=== PATIENT | male | born 1965 | race Caucasian/White ===

== ENCOUNTER 2017-12-22 16:04 | Observation (INO) ==
[2017-12-22] MEDS ORDERED: Aspirin 81 MG TAB.CHEW PO ONE (16:40)
[2017-12-22] MEDS: Nitroglycerin 0.4 MG TAB.SUBL SL ONE ×2 (17:11→17:50)
[2017-12-22 17:14] LABS: Basophils # 0.1 K/mcL (0.0-0.2); Basophils % 0.8 %; Eosinophils # 0.4 K/mcL (0.0-0.6); Eosinophils % 5.1 %; Hematocrit 41.1 % (37.5-50.1); Hemoglobin 13.4 g/dL (12.9-16.9); Immature Granulocytes % 0.4 % (0-4); Lymphocytes # 1.7 K/mcL (0.6-4.6); Lymphocytes % 24.5 %; Mean Corpuscular HGB Conc 32.6 g/dL (31.6-35.5); Mean Corpuscular Hemoglobin 27.8 pg (28.0-33.3); Mean Corpuscular Volume 85.3 fL (83.0-100.0); Mean Platelet Volume 10.4 fL (9.4-12.4); Monocytes # 0.4 K/mcL (0.0-1.3); Monocytes % 6.1 %; Neutrophils # 4.5 K/mcL (1.6-8.9); Platelet Count 156 K/mcL (140-400); Red Blood Count 4.82 M/mcL (4.19-5.50); Red Cell Distribution Width 14.1 % (11.5-14.5); Segmented Neutrophils % 63.1 %
[2017-12-22 17:20] LABS: INR 1.1; Prothrombin Time 12.7 Seconds (9.4-12.1)
[2017-12-22 17:22] LABS: Activated Partial Thrombo Time 34.4 Seconds (26.0-36.0)
[2017-12-22 17:39] LABS: BUN/Creatinine Ratio 11 (6-26); Blood Urea Nitrogen 12 mg/dL (6-20); Calcium 9.2 mg/dL (8.6-10.3); Carbon Dioxide 26 mEq/L (23-29); Chloride 106 mEq/L (98-107); Glucose 171 mg/dL (70-105); Osmolality,Calculated 290 (280-300); Potassium 3.6 mEq/L (3.5-5.1); Sodium 138 mEq/L (136-145); eGFR For Non-African Americans > 60 (> 60)
[2017-12-22 17:45] LABS: Troponin I 0.05 ng/mL (< 0.04)
[2017-12-22] MEDS ORDERED: *HR* Heparin 5,000 UNIT/ML VIAL IVP ONE (17:48)
[2017-12-22] MEDS ORDERED: *HR* Heparin 5,000 UNIT/ML VIAL IVP PRN (17:48)
--- NOTE | 2017-12-22 17:51 | Emergency Department Note ---
Disposition Clinical Impression: NSTEMI (non-ST elevated myocardial infarction) Disposition: Admitted As Inpatient Condition: Fair General Adult HPI - General Chief complaint: ED Chest Pain Stated complaint: Mulitple complaints/just was at [facility] Time Seen by Provider: 12/22/17 16:18 Source: patient, family Mode of arrival: ambulatory Limitations: no limitations Nursing Notes Reviewed: Yes Vital Signs Reviewed: Yes - History of Present Illness HPI Narrative: 52-year-old male with significant past medical history of hypertension, diabetes presenting to the emergency department with chief complaint of chest pain. Patient states that his chest pain was located substernally and radiated down his left arm and up his left neck. It started around 3:00 this morning. Patient is not taking any medications for this at home. He went to an outside emergency department where they diagnosed him with costochondritis after an EKG was completed but no lab work and discharge him home. Patient states he has continued to have chest pain. Patient does disclose diaphoresis, nausea and one episode of nonbloody nonbilious vomiting during the chest pain. At this time patient still is having chest pain. Patient states he has had an AL in the past but denies any stents or CABG. Denies being on any anticoagulation. Pain Scale: 4 - Related Data Home Medications Medication Instructions Recorded Confirmed Aspirin 325 mg PO DAILY 07/22/17 12/22/17 Buspirone HCl [Buspar] 30 mg PO DAILY 07/22/17 12/22/17 Diclofenac Sodium [Diclofenac 75 mg PO DAILY 07/22/17 12/22/17 Sodium ER] Docusate Sodium [Stool Softener] 100 mg PO DAILY 07/22/17 12/22/17 FLUoxetine HCl [Sarafem] 60 mg PO DAILY 07/22/17 12/22/17 Furosemide [Lasix] 20 mg PO DAILY 07/22/17 12/22/17 Insulin ASPART [NovoLOG] 0 unit SQ TIDWM 07/22/17 12/22/17 Loratadine [Allergy Relief] 10 mg PO DAILY 07/22/17 12/22/17 Losartan [Cozaar] 100 mg PO DAILY 07/22/17 12/22/17 Omeprazole [PriLOSEC] 40 mg PO DAILY 07/22/17 12/22/17 Potassium Chloride [Klor-Con 10 meq PO DAILY 07/22/17 12/22/17 Sprinkle] Simvastatin [Zocor] 20 mg PO HS 07/22/17 12/22/17 Zolpidem [Ambien] 10 mg PO HS 07/22/17 12/22/17 cloNIDine HCl [Clonidine HCl] 0.2 mg PO DAILY 07/22/17 12/22/17 lamoTRIgine [Lamotrigine] 100 mg PO DAILY 07/22/17 12/22/17 metFORMIN [Glucophage] 1,000 mg PO BIDWM 07/22/17 12/22/17 Fluticasone/Vilanterol [Breo 2 puff IH DAILY 12/22/17 12/22/17 Ellipta 200-25 Mcg INH] Insulin Glargine,Hum.rec.anlog 40 unit SQ HS 12/22/17 12/22/17 [Basaglar Kwikpen U-100] Pregabalin [Lyrica] 150 mg PO BID 12/22/17 12/22/17 Allergies Allergy/AdvReac Type Severity Reaction Status Date / Time promethazine [From Phenergan] Allergy Agitated Verified 02/27/15 21:09 plastic tape AdvReac Blister Uncoded 07/22/17 13:41 All systems ED: reviewed and negative except as stated. Constitutional: Denies: fever, chills, weakness Eyes: Reports: as per HPI ENT ED: Reports: as per HPI Cardiovascular: Reports: chest pain. Denies: palpitations, dyspnea on exertion Respiratory: Denies: cough, dyspnea, wheezes Gastrointestinal: Reports: nausea, vomiting. Denies: abdominal pain Genitourinary: Reports: as per HPI Musculoskeletal: Reports: as per HPI Integumentary: Denies: rash, abrasion Neurological: Denies: weakness, numbness, paresthesias Psychiatric: Reports: as per HPI Endocrine: Reports: as per HPI Hematological/Lymphatic: Reports: as per HPI Allergic/Immunologic: Reports: as per HPI Past Medical History - Past Medical History Attestation: Yes The following information was validated with the patient. Medical history: Reports: CHF, COPD, coronary artery disease, CVA, diabetes, hyperlipidemia, hypertension, myocardial infarction, peripheral artery disease, other Surgical history: Reports: appendectomy, cholecystectomy, herniorrhaphy (x2) Psychiatric history: Reports: anxiety - Social History Smoking Status: Current every day smoker Smokeless Tobacco Status: No Alcohol use: Reports: none Drug use: Reports: none Physical Exam - General Limitations: no limitations General appearance: alert, in no apparent distress - Head Head exam: atraumatic, normocephalic, normal inspection - Eye Eye exam: Present: normal appearance. Absent: scleral icterus, conjunctival injection - ENT ENT exam: normal exam, mucous membranes moist - Neck Neck exam: Present: normal inspection, full ROM. Absent: tenderness, meningismus - Chest Chest inspection: Present: normal inspection, symmetric chest wall rise. Absent : tenderness, rash - Respiratory Respiratory exam: Present: normal lung sounds bilaterally. Absent: respiratory distress, wheezes - Cardiovascular Cardiovascular exam: Present: regular rate, normal rhythm, normal heart sounds - Abdominal Exam Abdominal exam: Present: other (2 large hernias noted on exam. No discoloration or tenderness to these areas. Vertical wound noted in between the hernias. No dehiscence at this time.) - Extremities Exam Extremities exam: Present: normal inspection, full ROM - Neurological Exam Neurological exam: Present: alert, oriented X3 - Psychiatric Psychiatric exam: Present: normal affect, normal mood - Skin Skin exam: Present: warm, intact Course Course Narrative: 52-year-old male presenting for chest pain. In the room patient is hypertensive but otherwise hemodynamically stable. He is alert and oriented 3. Physical exam shows 2 large abdominal hernias but otherwise benign. At this time patient is still having chest pain. We will perform a chest pain workup including troponin, EKG along with a nitroglycerin trial and a full dose aspirin. Disposition most likely admission but pending results. Patient agrees with this plan. - Reevaluation(s) Reevaluation #1: After 3 nitros patient's pain has resolved. We will provide the patient with 1 inch Nitropaste at this time. Patient remains alert and oriented 3 in the room in hemodynamically stable. Laboratory analysis shows an elevated troponin at 0.05. EKG does not show any acute findings. At this time we will provide the patient with ACS dosing heparin for a NSTEMI. I spoke with the hospitalist on-call who agrees to accept the patient at this time. Patient agrees to hospitalization. I spoke with the machine brusher medical front desk coordinator Dr. Lee who agrees to assess the patient. Vital Signs Temperature 98.1 F 12/22/17 16:13 Pulse Rate 54 12/22/17 16:13 Respiratory Rate 19 12/22/17 16:13 Blood Pressure 171/92 12/22/17 16:13 O2 Sat by Pulse Oximetry 98 12/22/17 16:13 Temperature 98.1 F 12/22/17 16:47 Pulse Rate 50 12/22/17 19:11 Respiratory Rate 20 12/22/17 19:11 Blood Pressure 126/72 12/22/17 19:11 O2 Sat by Pulse Oximetry 99 12/22/17 19:11 Oxygen Delivery Oxygen Delivery Nasal Cannula Medical Decision Making - Lab Data Result diagrams: 12/22/17 16:50 12/22/17 16:50 Lab Results 12/22/17 12/22/17 12/22/17 Range/Units 16:40 16:50 16:50 WBC 7.1 (4.3-11.1) K/mcL RBC 4.82 (4.19-5.50) M/mcL Hgb 13.4 (12.9-16.9) g/dL Hct 41.1 (37.5-50.1) % MCV 85.3 (83.0-100.0) fL MCH 27.8 L (28.0-33.3) pg MCHC 32.6 (31.6-35.5) g/dL RDW 14.1 (11.5-14.5) % Plt Count 156 (140-400) K/mcL MPV 10.4 (9.4-12.4) fL Immature Gran % 0.4 (0-4) % Seg Neutrophils % 63.1 % Lymphocytes % 24.5 % Monocytes % 6.1 % Eosinophils % 5.1 % Basophils % 0.8 % Neutrophils # 4.5 (1.6-8.9) K/mcL Lymphocytes # 1.7 (0.6-4.6) K/mcL Monocytes # 0.4 (0.0-1.3) K/mcL Eosinophils # 0.4 (0.0-0.6) K/mcL Basophils # 0.1 (0.0-0.2) K/mcL PT 12.7 H (9.4-12.1) Seconds INR 1.1 APTT 34.4 (26.0-36.0) Seconds Heparin Anti-Xa, Unfract (0.30-0.70) IU/mL Sodium 138 (136-145) mEq/L Potassium 3.6 (3.5-5.1) mEq/L Chloride 106 (98-107) mEq/L Carbon Dioxide 26 (23-29) mEq/L BUN 12 (6-20) mg/dL Creatinine 1.05 (0.70-1.30) mg/dL Est GFR ( Amer) > 60 (> 60) Est GFR (Non-Af Amer) > 60 (> 60) BUN/Creatinine Ratio 11 (6-26) Glucose 171 H (70-105) mg/dL Calculated Osmolality 290 (280-300) Calcium 9.2 (8.6-10.3) mg/dL Troponin I 0.05 H* (< 0.04) ng/mL 12/22/17 Range/Units 18:28 WBC (4.3-11.1) K/mcL RBC (4.19-5.50) M/mcL Hgb (12.9-16.9) g/dL Hct (37.5-50.1) % MCV (83.0-100.0) fL MCH (28.0-33.3) pg MCHC (31.6-35.5) g/dL RDW (11.5-14.5) % Plt Count (140-400) K/mcL MPV (9.4-12.4) fL Immature Gran % (0-4) % Seg Neutrophils % % Lymphocytes % % Monocytes % % Eosinophils % % Basophils % % Neutrophils # (1.6-8.9) K/mcL Lymphocytes # (0.6-4.6) K/mcL Monocytes # (0.0-1.3) K/mcL Eosinophils # (0.0-0.6) K/mcL Basophils # (0.0-0.2) K/mcL PT (9.4-12.1) Seconds INR APTT (26.0-36.0) Seconds Heparin Anti-Xa, Unfract 0.04 L (0.30-0.70) IU/mL Sodium (136-145) mEq/L Potassium (3.5-5.1) mEq/L Chloride (98-107) mEq/L Carbon Dioxide (23-29) mEq/L BUN (6-20) mg/dL Creatinine (0.70-1.30) mg/dL Est GFR ( Amer) (> 60) Est GFR (Non-Af Amer) (> 60) BUN/Creatinine Ratio (6-26) Glucose (70-105) mg/dL Calculated Osmolality (280-300) Calcium (8.6-10.3) mg/dL Troponin I (< 0.04) ng/mL - EKG Data EKG #1 EKG attestation: Yes I reviewed and interpreted this EKG. EKG results narrative: Sinus rhythm. Left axis deviation. 55 beats for minute. NJ interval 191, curious 103, QTC 421. No sign of acute ST segment elevation or ischemia. Attestation Statement - Attestation Attestation: I examined this patient and my medical decision-making was reviewed with the Resident Physician, Dr. Hernandez. I agree with the documented findings, disposition and treatment plan as described except to the extent set forth below. Patient is 52-year-old white male with a history of diabetes and CAD who presents to emergency permit today with complaints of chest pain that woke him from sleep at 3:00 in the morning. At the time we will, patient had severe substernal pain with associated with diaphoresis nausea and one episode of vomiting. Patient denies any abdominal pain flank pain or urinary symptoms. Patient was seen at an outlying emergency department and states that he was diagnosed with costochondritis and discharged home. Patient came here due to ongoing chest pain. I agree with patient's physical exam findings as documented. Vital signs are stable. Patient received aspirin and nitroglycerin trial with resolution of symptoms. Nitropaste was ordered. Patient had full lab evaluation including troponin and chest x-ray. Chest x- ray was within normal limits and patient's troponin was elevated at 0.05. Patient will be admitted for an STEMI. Cardiology was consulate to see the patient and admitted to the hospitalist service patient is currently pain-free and was stable vital signs.
[2017-12-22] MEDS ORDERED: Nitroglycerin 1 INCH/GM PACKET TP ONE (17:59)
[2017-12-22] MEDS ORDERED: Naloxone 0.4 MG/ML INJ IVP PRN (20:09)
[2017-12-22] MEDS ORDERED: D5% in Water 1,000 ML IVC PRN (20:18)
[2017-12-22] MEDS ORDERED: *HR* Dextrose 50 % in Water (Syg) 50 ML SYRINGE IVP PRN (20:18)
[2017-12-22] MEDS ORDERED: Dextrose Gel 15 GM/37.5 ML TUBE PO PRN ×2 (20:18)
[2017-12-22] MEDS ORDERED: Albuterol 2.5 MG/3 ML NEBULIZER IH PRN (20:29)
[2017-12-22] MEDS: Heparin 25,000 UNIT/500 ML D5W 25,000 UNIT/500 ML BAG IVC SCH (22:10)
--- NOTE | 2017-12-22 22:10 | Internal Med History&Physical ---
<Leti Lee - Last Filed: 12/22/17 22:52> Date of Encounter: 12/22/17 Time of Encounter: 20:50 Internal Medicine - H&P: HPI Chief complaint: chest pain Admitted From: Home Plans for Post Hospital Care: Home History of present illness: Mr. Jimenez is a 52 year old male with extensive PMH that includes: CHF, CAD, SC (2015 and 1997), TIA, PAD, HTN, HLD, and COPD (2L continuous). Mr. Jimenez presents to the emergency department today for pressure-like chest pain. Chest pain began at 03:00 today, waking him from sleep. At that time he was drenched with sweat, nauseous, had a couple episodes of nonbloody emesis, and was significantly more short of breath then his baseline. His chest pain has been intermittent throughout the day with episodes of pain lasting 5-8 minutes. The chest pain is located in his left chest and radiates down his left arm, left side of neck, and left jaw. His pain is worse with exertion, emotional stress, and with bending forward; it is not pleuritic. His pain is relieved with rest, NTG tabs x3, and with laying down. He did not go to the emergency department immediately, he instead kept his doctor's appointment for knee injections this afternoon, but was told by his PCP to go to the emergency department because his blood pressure was 200's systolic /130's diastolic. The patient initially went to [facility] ED where they brittany blood and did a "4-lead EKG," ultimately saying the patient was fine and could be discharged. His insisted he come to [place] ED to be examined. Patient also reports bradycardic episode (HR in 30's-40's) with confusion, this episode has resolved. The patient reports he has had at least 2 MIs and 4-5 LHCs at various institutions. His last LHC was about a year ago and was told they found blockages not serious enough for stenting. His last stress test was 2 years ago and he was told it was normal. Last echocardiogram 1 year ago and reports he was never given the results. Furthermore, he reports that several years ago he was being considered for a pacemaker due to symptomatic bradycardia, but a [facility] doctor chose to hold off on this as the physician thought it was due to beta blockers--patient states his heart rate has increased since then, but has not gone "back to normal." He also has a significant family history of heart disease. He reports his mother and maternal grandmother had heart failure, maternal grandfather of massive heart attack, both of his brothers have had MIs, and his sister has general "heart problems" for which she's had multiple LHCs. On arrival to [place] ED he was afebrile, bradycardic at 54 bpm, hypertensive at 171/92, saturating 98%. Chest pain workup was initiated. First troponin 0.05 and EKG without signs of acute ischemia. CXR showed no acute cardiopulmonary processes. Electrolytes and CBC were unremarkable. He received 325 mg aspirin and his pain was relieved after 3 nitroglycerin tablets; 1 inch Nitropaste was also applied. Heparin gtt for NSTEMI placed, cardiology was contacted, and patient was admitted to the hospitalist team for further care and management. Past Med Surg Social Fam HX - Past Medical History Medical history: CHF, COPD, coronary artery disease, CVA, diabetes, hyperlipidemia, hypertension, myocardial infarction, peripheral artery disease, other Additional medical history: CVA-2017 Psychiatric history: anxiety - Past Surgical History Surgical History: appendectomy, cholecystectomy, herniorrhaphy (x2) Additional surgical history: Bowel resection/ perforated repair August 1996. August 1997 hernia repair. May 2007 mesh and hernia repair - Social History Smoking Status: Current every day smoker Smokeless Tobacco Status: No Alcohol use: none Drug use: none - Family History Mother Living Status: Hx Family Cardiac Disorders: Yes Father Living Status: Still Living Hx Family Cardiac Disorders: Yes Hx Family Endocrine Disorder: Yes Internal Medicine - H&P: Meds Aspirin 325 mg PO DAILY 07/22/17 [History] Buspirone HCl [Buspar] 30 mg PO DAILY 07/22/17 [History] Diclofenac Sodium [Diclofenac Sodium ER] 75 mg PO DAILY 07/22/17 [History] Docusate Sodium [Stool Softener] 100 mg PO DAILY 07/22/17 [History] FLUoxetine HCl [Sarafem] 60 mg PO DAILY 07/22/17 [History] Furosemide [Lasix] 20 mg PO DAILY 07/22/17 [History] Insulin ASPART [NovoLOG] 0 unit SQ TIDWM 07/22/17 [History] Loratadine [Allergy Relief] 10 mg PO DAILY 07/22/17 [History] Losartan [Cozaar] 100 mg PO DAILY 07/22/17 [History] Omeprazole [PriLOSEC] 40 mg PO DAILY 07/22/17 [History] Potassium Chloride [Klor-Con Sprinkle] 10 meq PO DAILY 07/22/17 [History] Simvastatin [Zocor] 20 mg PO HS 07/22/17 [History] Zolpidem [Ambien] 10 mg PO HS 07/22/17 [History] cloNIDine HCl [Clonidine HCl] 0.2 mg PO DAILY 07/22/17 [History] lamoTRIgine [Lamotrigine] 100 mg PO DAILY 07/22/17 [History] metFORMIN [Glucophage] 1,000 mg PO BIDWM 07/22/17 [History] Fluticasone/Vilanterol [Breo Ellipta 200-25 Mcg INH] 2 puff IH DAILY 12/22/17 [ History] Insulin Glargine,Hum.rec.anlog [Basaglar Kwikpen U-100] 40 unit SQ HS 12/22/17 [ History] Pregabalin [Lyrica] 150 mg PO BID 12/22/17 [History] 3 Allergy/AdvReac Type Severity Reaction Status Date / Time promethazine [From Phenergan] Allergy Agitated Verified 02/27/15 21:09 plastic tape AdvReac Blister Uncoded 07/22/17 13:41 All Systems PM: A 10-system review of systems was performed and is negative for pertinent findings except as documented above in the HPI. - Constitutional Constitutional: as per HPI - Cardiovascular Cardiovascular ROS IM: as per HPI, edema (BLE increased above baseline x 2 wk) - Respiratory Respiratory: as per HPI, wheezing, no pain on inspiration - Gastrointestinal Gastrointestinal: nausea, vomiting, no abdominal pain, no coffee ground emesis, no hematemesis - Integumentary Integumentary IM: other (poor-healing herniorraphy scars, seeing wound care) - Neurological Neurological ROS: as per HPI, confusion - Constitutional Vitals: Temp Pulse Resp BP Pulse Ox 98.1 F 50 20 126/72 99 12/22/17 16:47 12/22/17 19:11 12/22/17 19:11 12/22/17 19:11 12/22/17 19:11 Exam: General: vital signs noted, no acute distress, AAO x3 Head: normocephalic, atraumatic Eyes: EOMI, PERRL, sclera anicteric Neck: supple, trachea midline Cardio: Regular rhythm, bradycardic; no murmurs, gallops, rubs; + S1/S2; no edema Pulm: Diminished breath sounds bilaterally, CTAB, no wheezes/rhonchi/rales, normal respiratory effort Abd: large left-sided abdominal hernia; erythematous herniorraphy scars; soft, nontender Neuro: CN II-XII grossly intact, no focal deficits, mentation intact, moves all extremities spontaneously Ext: no lower extremity edema; pedal pulses present and equal bilaterally Psych: normal mood, normal affect, cooperative, answers questions appropriately Skin: warm, dry, intact Internal Med - H&P Results - Labs CBC & Chem 7: 12/22/17 16:50 12/22/17 16:50 - Assessment and plan (1) NSTEMI (non-ST elevated myocardial infarction) Current Visit: Yes Status: Acute Assessment and plan: Chest pain free at this time Risk factors include: age, tobacco use, CAD, DM, previous SC, and family hx Initial EKG without ST elevation or depression Initial troponin 0.05 Home statin therapy: simvastatin 20 mg PO HS - Continue heparin gtt - Trend troponin x 2 - Repeat EKG with 2nd troponin - Echocardiogram in AM - Consider changing statin therapy to high-intensity - Continuous cardiac monitoring - Cardiology consulted, recommendations appreciated (2) Elevated troponin Current Visit: Yes Status: Acute Assessment and plan: Troponin 0.05 on arrival Most likely due to ischemic cardiac event - See above above (3) Chest pain Current Visit: Yes Assessment and plan: Now chest pain free Typical cardiac chest pain, most likey d/t ischemic event Relieved by NTG tablets x3 in ED CXR negative for acute cardiopulmonary processes Currently wearing nitro patch - Plan as above Qualifiers: Chest pain type: unspecified Qualified Code(s): R07.9 - Chest pain, unspecified (4) Hypertension Current Visit: Yes Status: Acute Assessment and plan: Improved, stable BP on arrival 171/92 - Routine BP monitoring - Continue home meds after verified by pharmacy Qualifiers: Hypertension type: unspecified Qualified Code(s): I10 - Essential (primary ) hypertension (5) Hyperlipidemia Current Visit: Yes Status: Acute Assessment and plan: Continue home dose simvastatin at this time, recommend changing to high- intensity statin - Check lipid panel Qualifiers: Hyperlipidemia type: unspecified Qualified Code(s): E78.5 - Hyperlipidemia , unspecified (6) Diabetes mellitus Current Visit: Yes Status: Acute Assessment and plan: Sliding scale insulin NPO after midnight Accu-cheks Q6H - Check Hgb A1c Qualifiers: Diabetes mellitus type: type 2 Diabetes mellitus halfway insulin use: with pin machine tender use Diabetes mellitus complication status: with hyperglycemia Qualified Code(s): E11.65 - Type 2 diabetes mellitus with hyperglycemia; Z79.4 - penitentiary (current) use of insulin (7) COPD (chronic obstructive pulmonary disease) Current Visit: Yes Status: Acute Assessment and plan: Home oxygen 2L continuous on nasal cannula - Continue supplemental O2 to keep SpO2 92% or greater Qualifiers: COPD type: unspecified COPD Qualified Code(s): J44.9 - Chronic obstructive pulmonary disease, unspecified (8) CHF (congestive heart failure) Current Visit: Yes Status: Acute Assessment and plan: Unknown if systolic versus diastolic based on [facility] chart review and last echo not done @ [facility] Pt reports increased lower extremity swelling x 2 weeks Physical exam negative for signs of fluid overload--no crackles auscultated, no LE edema, CXR negative - Echocardiogram in AM Qualifiers: Heart failure type: unspecified Heart failure chronicity: chronic Qualified Code(s): I50.9 - Heart failure, unspecified (9) Bradycardia, sinus Current Visit: Yes Status: Acute Assessment and plan: Chronic, stable Asymptomatic Sinus rhythm on EKG, HR 50's - Continuous cardiac monitoring (10) DVT prophylaxis Current Visit: Yes Status: Acute Assessment and plan: Heparin gtt (11) History of CVA (cerebrovascular accident) Current Visit: No Status: Acute - Time Spent With Patient Total time spent is greater than 50% in coordination of care (as documented) at patient's floor/unit and/or counseling patient: <Glen Acosta - Last Filed: 12/22/17 23:55> Date of Encounter: 12/22/17 - Constitutional Vitals: Temp Pulse Resp BP Pulse Ox 98.4 F 50 17 145/85 99 12/22/17 21:44 12/22/17 21:44 12/22/17 21:44 12/22/17 21:44 12/22/17 21:44 Internal Med - H&P Results - Labs CBC & Chem 7: 12/22/17 16:50 12/22/17 16:50 Labs: Cardiac Enzymes 12/22/17 Range/Units 22:59 Troponin I 0.04 H* (< 0.04) ng/mL - Assessment and plan (1) NSTEMI (non-ST elevated myocardial infarction) Current Visit: Yes Status: Acute (2) Chest pain Current Visit: Yes Qualifiers: Chest pain type: unspecified Qualified Code(s): R07.9 - Chest pain, unspecified (3) Hypertension Current Visit: Yes Status: Acute Qualifiers: Hypertension type: unspecified Qualified Code(s): I10 - Essential (primary ) hypertension (4) Hyperlipidemia Current Visit: Yes Status: Acute Qualifiers: Hyperlipidemia type: unspecified Qualified Code(s): E78.5 - Hyperlipidemia , unspecified (5) Diabetes mellitus Current Visit: Yes Status: Acute Qualifiers: Diabetes mellitus type: type 2 Diabetes mellitus halfway insulin use: with pin machine tender use Diabetes mellitus complication status: with hyperglycemia Qualified Code(s): E11.65 - Type 2 diabetes mellitus with hyperglycemia; Z79.4 - penitentiary (current) use of insulin (6) COPD (chronic obstructive pulmonary disease) Current Visit: Yes Status: Acute Qualifiers: COPD type: unspecified COPD Qualified Code(s): J44.9 - Chronic obstructive pulmonary disease, unspecified (7) CHF (congestive heart failure) Current Visit: Yes Status: Acute Qualifiers: Heart failure type: unspecified Heart failure chronicity: chronic Qualified Code(s): I50.9 - Heart failure, unspecified (8) Elevated troponin Current Visit: Yes Status: Acute (9) Bradycardia, sinus Current Visit: Yes Status: Acute (10) DVT prophylaxis Current Visit: Yes Status: Acute (11) History of CVA (cerebrovascular accident) Current Visit: No Status: Acute - Time Spent With Patient Total time spent is greater than 50% in coordination of care (as documented) at patient's floor/unit and/or counseling patient: - Attending Attestation Wiliam Jimenez is a 52-year-old obese man with a history of hypertension, insulin-dependent diabetes, coronary artery disease and congestive heart failure who presents to the emergency room with a chief complaint of chest pain that started earlier in the day. He states that he had gone to an orthopedic consult but there was found to have a highly elevated blood pressure and was referred to the emergency room at [facility]. There he was also found to have high BP but no intervention was done and he was discharged home. At that time he was also having chest pain which he states he regularly has but short-lived however on this occasion it persisted over time and did not relieve with rest. He decided to come here for evaluation. He says that he had accompanying nausea and lightheadedness with the precordial pain and mild shortness of breath. He does state that he occasionally has swelling in his legs although todays a better day. He admits to having SC in the past with PCI but denies ever having any stents placed or CABG. He takes aspirin daily but is not on anticoagulation. He also reports a history of bradycardia which is asymptomatic. Of note, he states his last cardiac cath was about 4 years ago. On arrival here he was clinically and hemodynamically stable. 3 tablets of nitroglycerin were necessary for him to obtain relief and at this time states that the pain is resolved and he is more comfortable and willing to eat some food as the nausea has also resolved. His highest systolic blood pressure was 171 and more recently is down to 126. Heart rate has consistently been in the 50s. EKG did not show acute ischemic changes. Physical exam remarkable for obese white male lying in bed with a distended abdomen with surgical incision scars from ventral hernia repair and signs of incisional hernia persisting with a healing surgical wound. Cardiac exam with no rubs, murmur or gallop rhythm. No wheezes, rales or rhonchi on chest auscultation. Trace pedal edema. Labs reviewed are remarkable for normal CBC and BMP parameters however troponin is 0.05. Chest x-ray reviewed independently by me shows no signs of pulmonary vascular congestion or pneumonic consolidation. We will admit for unstable angina/NSTEMI. He has known CAD and had chest pain that was in crescendo relieving only with 3 nitroglycerin tablets. He has received loading dose of aspirin and he is currently on heparin drip. We shall obtain an echo in the morning to assess for wall motion abnormalities and request cardiology consultation. Continue to trend troponins overnight. Aspirin 81 mg daily. Resume home antihypertensives. Patient will benefit from high intensity statin therapy. Check lipid panel and A1C.
[2017-12-23] MEDS: Insulin LISPRO 300 UNITS/3 ML VIAL SQ SCH ×5 (01:11→20:23)
[2017-12-23 04:39] LABS: Basophils # 0.1 K/mcL (0.0-0.2); Basophils % 0.9 %; Eosinophils # 0.3 K/mcL (0.0-0.6); Eosinophils % 5.9 %; Hematocrit 37.8 % (37.5-50.1); Hemoglobin 12.7 g/dL (12.9-16.9); Immature Granulocytes % 0.6 % (0-4); Lymphocytes # 1.6 K/mcL (0.6-4.6); Lymphocytes % 30.1 %; Mean Corpuscular HGB Conc 33.6 g/dL (31.6-35.5); Mean Corpuscular Hemoglobin 28.3 pg (28.0-33.3); Mean Corpuscular Volume 84.2 fL (83.0-100.0); Mean Platelet Volume 10.3 fL (9.4-12.4); Monocytes # 0.4 K/mcL (0.0-1.3); Monocytes % 7.6 %; Platelet Count 134 K/mcL (140-400); Red Blood Count 4.49 M/mcL (4.19-5.50); Red Cell Distribution Width 14.4 % (11.5-14.5); Segmented Neutrophils % 54.9 %
[2017-12-23 04:48] LABS: Heparin anti-factor XA UFH 0.06 IU/mL (0.30-0.70); Prothrombin Time 11.6 Seconds (9.4-12.1)
[2017-12-23 04:50] LABS: Activated Partial Thrombo Time 32.3 Seconds (26.0-36.0)
[2017-12-23 05:02] LABS: BUN/Creatinine Ratio 13 (6-26); Blood Urea Nitrogen 13 mg/dL (6-20); Calcium 8.7 mg/dL (8.6-10.3); Carbon Dioxide 24 mEq/L (23-29); Chloride 106 mEq/L (98-107); Chol/HDL Ratio 8.7 (0-4.9); Cholesterol 174 mg/dL (< 200); Glucose 201 mg/dL (70-105); HDL Cholesterol 20 mg/dL (40-59); Osmolality,Calculated 290 (280-300); Potassium 3.7 mEq/L (3.5-5.1); Sodium 137 mEq/L (136-145); Triglycerides 516 mg/dL (< 150); eGFR For Non-African Americans > 60 (> 60)
[2017-12-23 07:25] LABS: Estimated Average Glucose 148 mg/dl; Hemoglobin A1C 6.8 %
[2017-12-23] MEDS: Budesonide/Formoterol 160/4.5 1 PUFF INH IH SCH ×2 (08:07→19:54)
[2017-12-23] MEDS ORDERED: (Breo Ellipta 200-25 Mcg Inh) IH SCH (09:00)
[2017-12-23] MEDS: Pregabalin 75 MG CAPSULE PO SCH ×2 (11:12→20:40)
[2017-12-23] MEDS ORDERED: Perflutren Lipid Microsphere 1.3 ML in 0.9 % Sodium Chloride 8.7 ML IVP ONE (11:41)
--- NOTE | 2017-12-23 13:12 | Cardiology Consult Note ---
Date of Encounter: 12/23/17 Time of Encounter: 12:00 Assessment and Plan (1) Elevated troponin Current Visit: Yes Status: Acute Per cardiology: -Troponins 0.05, 0.04, then negative in the setting of HTN. -Did report atypical chest pain when BP elevated, denies current. -ECG with non-specific T wave abnormalities noted. -Reports LHC a year ago at [facility], with non-obstructive disease. -TTE pending. -On asa, statin, heparin drip. Not on BB due to bradycardia -Demand ischemia in the setting of HTN. -With mild troponin elevated, atypical chest pain, will check dobutamine stress echo. -Will obtain records from [facility]. -will switch statin to lipitor. (2) Hypertension Current Visit: Yes Status: Chronic Per cardioogy: -Known HTN. -States BP at PCPs office 200/130. -admission [facility] with BP 170/92. -Bp currently imrpoved to 120-140s systolic. -Will continue to monitor. Qualifiers: Hypertension type: essential hypertension Qualified Code(s): I10 - Essential (primary) hypertension Discussion w patient/family: The assessment and plan as outlined above was discussed with the patient who expressed understanding and agreement. All questions were answered. Thank you for involving us in the care of your patient. Please call with any questions. Discussed and reviewed with . History of Present Illness Consult date: 12/22/17 Requesting physician: Beba Hernandez Consult reason: elevated troponin Chief complaint: chest pain History of present illness: Mr. Jimenez is a 52 year old male with a relevant past medical history of non- obstructive CAD, HTN, DM, COPD, CHF, abdominal hernias who presented to [facility] with complaints of chest pain. Patient states pain woke him up from sleeping. Denies current chest pain. Patient he has had intermittent chest pain over the past several years that occurs with exertion and at rest. Patient states LHC about one year ago at [facility] with non-obstructive disease. Patient reports BP has been high. Denies worsening shortness of breath. States fatigue is about baseline. Past Med Surg Social Fam HX - Past Medical History Attestation: Yes The following information was validated with the patient. Source: patient, old records reviewed Medical history: CHF, COPD, coronary artery disease, CVA, diabetes, hyperlipidemia, hypertension, myocardial infarction, peripheral artery disease, other Additional medical history: CVA-2017 Psychiatric history: anxiety - Past Surgical History Surgical History: appendectomy, cholecystectomy, herniorrhaphy (x2) Additional surgical history: Bowel resection/ perforated repair August 1996. August 1997 hernia repair. May 2007 mesh and hernia repair - Social History Smoking Status: Current every day smoker Smokeless Tobacco Status: No Alcohol use: none Drug use: none - Family History Mother History Unknown: Yes Living Status: Hx Family Cardiac Disorders: Yes Father History Unknown: Yes Living Status: Still Living Hx Family Cardiac Disorders: Yes Hx Family Endocrine Disorder: Yes Medications and Allergies Aspirin 325 mg PO DAILY 07/22/17 [History] Buspirone HCl [Buspar] 30 mg PO DAILY 07/22/17 [History] Diclofenac Sodium [Diclofenac Sodium ER] 75 mg PO DAILY 07/22/17 [History] Docusate Sodium [Stool Softener] 100 mg PO DAILY 07/22/17 [History] FLUoxetine HCl [Sarafem] 60 mg PO DAILY 07/22/17 [History] Furosemide [Lasix] 20 mg PO DAILY 07/22/17 [History] Insulin ASPART [NovoLOG] 0 unit SQ TIDWM 07/22/17 [History] Loratadine [Allergy Relief] 10 mg PO DAILY 07/22/17 [History] Losartan [Cozaar] 100 mg PO DAILY 07/22/17 [History] Omeprazole [PriLOSEC] 40 mg PO DAILY 07/22/17 [History] Potassium Chloride [Klor-Con Sprinkle] 10 meq PO DAILY 07/22/17 [History] Simvastatin [Zocor] 20 mg PO HS 07/22/17 [History] Zolpidem [Ambien] 10 mg PO HS 07/22/17 [History] cloNIDine HCl [Clonidine HCl] 0.2 mg PO DAILY 07/22/17 [History] lamoTRIgine [Lamotrigine] 100 mg PO DAILY 07/22/17 [History] metFORMIN [Glucophage] 1,000 mg PO BIDWM 07/22/17 [History] Fluticasone/Vilanterol [Breo Ellipta 200-25 Mcg INH] 2 puff IH DAILY 12/22/17 [ History] Insulin Glargine,Hum.rec.anlog [Basaglar Kwikpen U-100] 40 unit SQ HS 10/10/18 [ History] Pregabalin [Lyrica] 150 mg PO BID 12/22/17 [History] 3 Allergy/AdvReac Type Severity Reaction Status Date / Time promethazine [From Phenergan] Allergy Agitated Verified 02/27/15 21:09 plastic tape AdvReac Blister Uncoded 07/22/17 13:41 All Systems Review: The remainder of the systems were reviewed and are negative - Cardiovascular Cardiovascular: as per HPI, chest pain at rest, chest pain with exertion Physical Examination Vital Signs, Last 4 Hours Temp Pulse Resp BP Pulse Ox 12/23/17 11:10 98.5 F 52 19 171/84 99 General: Conversant, No Apparent Distress HEENT: Atraumatic, Normocephaly, Mucus Membranes Moist Neck: No JVD, Normal carotid pulses Cardiac: Reg Rate and Rhythm, Normal S1 and S2, No Murmur Lungs: Normal Breath Sounds, No Wheeze, Rales, Rhonchi Neuro: Alert and responsive, No focal deficits noted Abdomen: Soft, Other (Large hernia noted. ) Skin: No rashes noted on visualized skin Musculoskeletal: No Chest Wall Tenderness Extremities: No Clubbing, No Cyanosis, No Edema, Normal Pulses Results 12/23/17 04:10 12/23/17 04:10 Lab Results Impressions Chest X-Ray 12/22/17 16:40 IMPRESSION: No radiographic evidence of acute cardiopulmonary disease. D/ / Geovanni Seth / Geovanni Seth Interpreting Provider: Geovanni Seth Active Medications Albuterol Sulfate (Proventil Neb) 2.5 mg IH [id number] PRN; Protocol PRN Reason: Shortness Of Breath/Wheezing Stop: 06/23/18 20:30 Budesonide/Formoterol Fumarate (Symbicort) 2 puff IH BIDR [facility] PRN Reason: Protocol Stop: 06/24/18 10:01 Last Admin: 12/23/17 08:07 Dose: 2 puff Buspirone HCl (Buspar) 30 mg PO DAILY [facility] Stop: 06/24/18 09:01 Clonidine HCl (Clonidine Hcl) 0.2 mg PO DAILY [facility] Stop: 06/24/18 09:01 Dextrose/Water (Dextrose 50% (Syg)) 25 ml IVP AD PRN PRN Reason: Hypoglycemia Stop: 06/23/18 20:19 Docusate Sodium (Colace) 100 mg PO DAILY [facility] PRN Reason: Protocol Stop: 06/24/18 09:01 Fluoxetine HCl (Prozac) 60 mg PO DAILY [facility] Stop: 06/24/18 09:01 Furosemide (Lasix) 20 mg PO DAILY [facility] Stop: 06/24/18 09:01 Glucagon (Glucagen) 1 mg IM ONCE PRN PRN Reason: Hypoglycemia Stop: 06/23/18 20:19 Glucose (Gluctose) 15 gm PO ONCE PRN PRN Reason: Hypoglycemia Stop: 06/23/18 20:19 Glucose (Gluctose) 30 gm PO ONCE PRN PRN Reason: Hypoglycemia Stop: 06/23/18 20:19 Heparin Sodium (Porcine) (Heparin) 4,000 unit IVP Q6HR PRN PRN Reason: SEE COMMENTS Stop: 06/23/18 17:49 Last Admin: 12/23/17 05:23 Dose: 4,000 unit Heparin Sodium (Porcine) (Heparin) 2,000 unit IVP Q6H PRN PRN Reason: SEE COMMENTS Stop: 06/23/18 17:49 Heparin Sodium/Dextrose (Heparin 25,000 Unit/500 Ml D5w) 25,000 unit in 500 mls @ 20 mls/hr IVC .Q24H [facility] PRN Reason: Protocol Stop: 06/23/18 18:01 Last Titration: 12/23/17 05:20 Dose: 30.4 ml/hr, 30.4 mls/hr Dextrose (Dextrose 5%) 1,000 mls @ 100 mls/hr IVC .Q10H PRN PRN Reason: HYPOGLYCEMIA Stop: 06/23/18 20:19 Dobutamine HCl/Dextrose (Dobutamine Premix 250 Mg/250 Ml) 250 mg in 250 mls @ 84.913 mls/hr IVC .Q2H57M [facility]; 10 MCG/KG/MIN PRN Reason: Protocol Stop: 06/24/18 11:46 Last Titration: 12/23/17 13:01 Dose: 20 mcg/kg/min, 169.825 mls/hr Insulin Human Lispro (Humalog) 0 units SQ Q6HR [facility] PRN Reason: Protocol Stop: 06/24/18 00:01 Last Admin: 12/23/17 07:13 Dose: Not Given Lamotrigine (Lamictal) 100 mg PO DAILY [facility] Stop: 06/24/18 09:01 Loratadine (Claritin) 10 mg PO DAILY [facility] Stop: 06/24/18 09:01 Losartan Potassium (Cozaar) 100 mg PO DAILY [facility] PRN Reason: Protocol Stop: 06/24/18 09:01 Omeprazole (Prilosec) 40 mg PO DAILY [facility] PRN Reason: Protocol Stop: 06/24/18 09:01 Potassium Chloride (Potassium Chloride) 10 meq PO DAILY [facility] Stop: 06/24/18 09:01 Pregabalin (Lyrica) 150 mg PO BID [facility] Stop: 06/24/18 09:01 Last Admin: 12/23/17 11:12 Dose: 150 mg Simvastatin (Zocor) 20 mg PO HS [facility] PRN Reason: Protocol Stop: 06/23/18 21:01 Last Admin: 12/22/17 22:21 Dose: 20 mg Zolpidem Tartrate (Ambien) 10 mg PO HS [facility] PRN Reason: Protocol Stop: 06/24/18 02:16 Last Admin: 12/23/17 02:08 Dose: 10 mg Laboratory Tests 07/02/17 12/22/17 12/22/17 10:17 16:50 22:59 Hgb Creatinine AST 22 ALT 17 Troponin I 0.05 H* 0.04 H* LDL Cholesterol, Calc 12/23/17 12/23/17 12/23/17 04:10 04:10 04:10 Hgb 12.7 L Creatinine 0.97 AST ALT Troponin I < 0.03 LDL Cholesterol, Calc 12/23/17 04:10 Hgb Creatinine AST ALT Troponin I LDL Cholesterol, Calc TNP - Imaging and Cardiology Chest Xray: report reviewed Stress Test: pending Echo: pending - EKG Interpretation EKG results cardiology: personally reviewed (ECG with SB, HR 52. Non-specific T wave abnormalities noted.), other (Telemetry reviewed with average HR previous 12 hours noted to be 57, SB. PVCs and PACs noted.) Consult Discharge Plan - Plan Referrals: Dana Rivera, BOREMATIC MACHINE OPERATOR [Primary Care Provider] -
[2017-12-23] MEDS: *HR* Heparin 5,000 UNIT/ML VIAL IVP PRN (14:03)
[2017-12-23] MEDS: Loratadine 10 MG TABLET PO SCH (14:08)
[2017-12-23] MEDS: lamoTRIgine 100 MG TABLET PO SCH (14:08)
[2017-12-23] MEDS: FLUoxetine 20 MG CAPSULE PO SCH (14:08)
[2017-12-23] MEDS: cloNIDine HCl 0.1 MG TABLET PO SCH (14:11)
[2017-12-23] MEDS: Furosemide 20 MG TABLET PO SCH (14:11)
[2017-12-23] MEDS: Aspirin Enteric Coated 81 MG Tablet PO SCH (14:14)
[2017-12-23] MEDS: Heparin 25,000 UNIT/500 ML D5W 25,000 UNIT/500 ML BAG IVC SCH (17:43)
[2017-12-23] MEDS: amLODIPine 5 MG TABLET PO SCH (20:40)
[2017-12-23] MEDS ORDERED: Insulin LISPRO 300 UNITS/3 ML VIAL SQ SCH (21:00)
--- NOTE | 2017-12-23 21:04 | Internal Med Progress Note ---
Hospitalist Progress Note - Encounter Date of Encounter: 12/23/17 Time of Encounter: 19:00 - Subjective Interval History: SUBJECTIVE: I met this patient in the early afternoon, after his attempted stress test. During the test he developed hypertension and tachycardia. They had to stop the test early. He did not have any chest pain/pressure during the test and after the test. He was admitted to the hospital with chest pain/pressure in the anterior chest. His blood pressure remains elevated at times. OBJECTIVE: Skin: Free of rash and discoloration. ENMT: Oral/pharyngeal mucosa is normal in appearance. Eyes: Sclera is white. There is no discharge from eyes. Respiratory: Normal breath sounds; no crackles or wheezes. CV: Heart is regular; no gallop or murmur. GI: Abdomen is soft and not tender. There is no palpable mass or visceromegaly. Neuro: There is no focal deficits. ASSESSMENT AND PLAN: Chest pain/very mildly elevated troponin; with maximum of 0.05 (the first one). He has underlying coronary artery disease with myocardial infarction happening on 2 occasions. His last cardiac catheterization happened about a year ago. Cardiology is consulted. They want to do another cardiac catheterization tomorrow. The patient is taking IV heparin drip with Cozaar and Zocor. His beta-bronson is on hold as he had bradycardia before this admission. I am adding aspirin to his treatments. Possible CHF. Echocardiogram has been done. The results are pending. The patient was taking Lasix at homebefore this admission. COPD. With mild chronic respiratory failureon 2 L/min nasal cannula oxygen at home. Stable at this time. Type 2 diabetes mellitus. He was on insulin and metformin at home. Currently, he is on when necessary Humalog. Hypertension. It is treated with clonidine and Cozaar. I will substitute beta- bronson with amlodipine. DISPOSITION: We will make decisions after his cardiac catheterization scheduled for tomorrow morning. - Exam Vitals: Temp Pulse Resp BP Pulse Ox 97.8 F 60 16 162/72 96 12/23/17 20:03 12/23/17 20:03 12/23/17 20:03 12/23/17 20:03 12/23/17 20:03 Exam: xx - Assessment and Plan (1) Chest pain Current Visit: Yes (2) Elevated troponin Current Visit: Yes Status: Acute (3) CAD (coronary artery disease) Current Visit: Yes Status: Acute (4) CHF (congestive heart failure) Current Visit: Yes Status: Suspected (5) COPD (chronic obstructive pulmonary disease) Current Visit: Yes Status: Acute (6) Diabetes mellitus Current Visit: Yes Status: Acute (7) Hypertension Current Visit: Yes Status: Chronic (8) Hyperlipidemia Current Visit: Yes Status: Acute (9) Bradycardia, sinus Current Visit: Yes Status: Acute - Time Spent with Patient Total time spent is greater than 50% in coordination of care (as documented) at patient's floor/unit and/or counseling patient: 25 - 35 minutes Plan of Care Discussed with: patient (and family..) Internal Medicine: Result - Labs CBC & Chem 7: 12/23/17 04:10 12/23/17 04:10 Labs: Short CBC 12/23/17 Range/Units 04:10 WBC 5.4 (4.3-11.1) K/mcL Hgb 12.7 L (12.9-16.9) g/dL Hct 37.8 (37.5-50.1) % Plt Count 134 L (140-400) K/mcL Neutrophils # 3.0 (1.6-8.9) K/mcL BMP 12/23/17 04:10 Sodium 137 Potassium 3.7 Chloride 106 Carbon Dioxide 24 BUN 13 Creatinine 0.97 Glucose 201 H Calcium 8.7 Cardiac Enzymes 12/22/17 12/23/17 Range/Units 22:59 04:10 Troponin I 0.04 H* < 0.03 (< 0.04) ng/mL - ABG Interpretation ABG results: PT/INR, D-dimer PT 11.6 Seconds (9.4-12.1) 12/23/17 04:10 - Impressions Impressions Echocardiogram 12/23/17 20:16 Impressions: LVEF 60-65%. Normal LV chamber size, wall thickness and function. Normal right ventricular structure and function. Mild mitral regurgitation. Consult Discharge Plan - Plan Referrals: Dana Rivera CNP [Primary Care Provider] - 12/29/17 1:00 pm (Please follow up as schedule....) (1) Chest pain Qualifiers: Chest pain type: unspecified Qualified Code(s): R07.9 - Chest pain, unspecified (3) CAD (coronary artery disease) Qualifiers: Coronary Disease-Associated Artery/Lesion type: [place] artery [place] vs. 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
[2017-12-24] MEDS: *HR* Heparin 5,000 UNIT/ML VIAL IVP PRN (01:38)
[2017-12-24] MEDS: Insulin LISPRO 300 UNITS/3 ML VIAL SQ SCH ×2 (07:52→12:48)
[2017-12-24] MEDS: cloNIDine HCl 0.1 MG TABLET PO SCH (09:22)
[2017-12-24] MEDS: Pregabalin 75 MG CAPSULE PO SCH (09:22)
[2017-12-24] MEDS: FLUoxetine 20 MG CAPSULE PO SCH (09:22)
[2017-12-24] MEDS: Aspirin Enteric Coated 81 MG Tablet PO SCH (09:22)
[2017-12-24] MEDS: Furosemide 20 MG TABLET PO SCH (09:23)
[2017-12-24] MEDS: Loratadine 10 MG TABLET PO SCH (09:23)
[2017-12-24] MEDS: lamoTRIgine 100 MG TABLET PO SCH (09:23)
[2017-12-24] MEDS: amLODIPine 5 MG TABLET PO SCH (09:23)
[2017-12-24] MEDS: Heparin 25,000 UNIT/500 ML D5W 25,000 UNIT/500 ML BAG IVC SCH (09:42)
[2017-12-24] MEDS: Budesonide/Formoterol 160/4.5 1 PUFF INH IH SCH (10:22)
[2017-12-24 11:38] VITALS: BP 147/75
--- NOTE | 2017-12-24 13:29 | Cardiology Progress Note ---
Date of Encounter: 12/24/17 Time of Encounter: 10:00 Assessment and Plan (1) Elevated troponin Current Visit: Yes Status: Acute Per cardiology: -Troponins 0.05, 0.04, then negative in the setting of HTN. -Did report atypical chest pain when BP elevated, denies current. -ECG with non-specific T wave abnormalities noted. -Reports C a year ago at [facility], with non-obstructive disease. -TTE with LVEF preserved, no segmental wall motion abnormalities noted. -On asa, statin, heparin drip. Not on BB due to bradycardia -Dobutamine stress echo was attempted yesterday, however stopped due to hypertension. -Demand ischemia in the setting of HTN. -Discussed and reviewed with , will atypical chest pain, LVEF preserved, will treat medically and and follow in outpatient setting. Cardiology signing off. Will arrange outpatient follow up. (2) Hypertension Current Visit: Yes Status: Chronic Per cardioogy: -Known HTN. -States BP at PCPs office 200/130. -admission [facility] with BP 170/92. -Bp currently 140s systolic. Qualifiers: Hypertension type: essential hypertension Qualified Code(s): I10 - Essential (primary) hypertension Discussion w patient/family: The assessment and plan as outlined above was discussed with the patient and family who expressed understanding and agreement. All questions were answered. Thank you for involving us in the care of your patient. Please call with any questions. Discussed and reviewed with . Subjective Principal diagnosis: HTN Interval history: Patient denies chest pain. States he feels fine today. Objective Vital Signs, Last 4 Hours Temp Pulse Resp BP Pulse Ox 12/24/17 11:37 97.9 F 56 18 147/75 97 12/24/17 10:22 16 96 General: Conversant, No Apparent Distress HEENT: Atraumatic, Normocephaly, Mucus Membranes Moist Neck: No JVD, Normal carotid pulses Cardiac: Reg Rate and Rhythm, Normal S1 and S2, No Murmur Lungs: Normal Breath Sounds, No Wheeze, Rales, Rhonchi Neuro: Alert and responsive, No focal deficits noted Abdomen: Soft, Other (Large abdominal hernia noted. ) Skin: No rashes noted on visualized skin Musculoskeletal: No Chest Wall Tenderness Extremities: No Clubbing, No Cyanosis, No Edema, Normal Pulses Results 12/23/17 04:10 12/23/17 04:10 Impressions Echocardiogram 12/23/17 20:16 Impressions: LVEF 60-65%. Normal LV chamber size, wall thickness and function. Normal right ventricular structure and function. Mild mitral regurgitation. Active Medications Albuterol Sulfate (Proventil Neb) 2.5 mg IH [id number] PRN; Protocol PRN Reason: Shortness Of Breath/Wheezing Stop: 06/23/18 20:30 Amlodipine Besylate (Norvasc) 5 mg PO DAILY [facility] PRN Reason: Protocol Stop: 06/24/18 18:01 Last Admin: 12/24/17 09:23 Dose: 5 mg Aspirin (Aspirin Ec) 81 mg PO DAILY [facility] Stop: 06/24/18 13:31 Last Admin: 12/24/17 09:22 Dose: 81 mg Atorvastatin Calcium (Lipitor) 40 mg PO HS [facility] Stop: 06/24/18 21:01 Last Admin: 12/23/17 20:40 Dose: 40 mg Budesonide/Formoterol Fumarate (Symbicort) 2 puff IH BIDR [facility] PRN Reason: Protocol Stop: 06/24/18 10:01 Last Admin: 12/24/17 10:22 Dose: 2 puff Buspirone HCl (Buspar) 30 mg PO DAILY [facility] Stop: 06/24/18 09:01 Last Admin: 12/24/17 09:22 Dose: 30 mg Clonidine HCl (Clonidine Hcl) 0.2 mg PO DAILY [facility] Stop: 06/24/18 09:01 Last Admin: 12/24/17 09:22 Dose: 0.2 mg Dextrose/Water (Dextrose 50% (Syg)) 25 ml IVP AD PRN PRN Reason: Hypoglycemia Stop: 06/23/18 20:19 Docusate Sodium (Colace) 100 mg PO DAILY [facility] PRN Reason: Protocol Stop: 06/24/18 09:01 Last Admin: 12/24/17 09:23 Dose: Not Given Fluoxetine HCl (Prozac) 60 mg PO DAILY [facility] Stop: 06/24/18 09:01 Last Admin: 12/24/17 09:22 Dose: 60 mg Furosemide (Lasix) 20 mg PO DAILY [facility] Stop: 06/24/18 09:01 Last Admin: 12/24/17 09:23 Dose: 20 mg Glucagon (Glucagen) 1 mg IM ONCE PRN PRN Reason: Hypoglycemia Stop: 06/23/18 20:19 Glucose (Gluctose) 15 gm PO ONCE PRN PRN Reason: Hypoglycemia Stop: 06/23/18 20:19 Glucose (Gluctose) 30 gm PO ONCE PRN PRN Reason: Hypoglycemia Stop: 06/23/18 20:19 Heparin Sodium (Porcine) (Heparin) 4,000 unit IVP Q6HR PRN PRN Reason: SEE COMMENTS Stop: 06/23/18 17:49 Last Admin: 12/23/17 05:23 Dose: 4,000 unit Heparin Sodium (Porcine) (Heparin) 2,000 unit IVP Q6H PRN PRN Reason: SEE COMMENTS Stop: 06/23/18 17:49 Last Admin: 12/24/17 01:38 Dose: 2,000 unit Hydralazine HCl (Hydralazine) 10 mg IVP AD PRN PRN Reason: Blood Pressure - High Stop: 06/24/18 18:01 Heparin Sodium/Dextrose (Heparin 25,000 Unit/500 Ml D5w) 25,000 unit in 500 mls @ 20 mls/hr IVC .Q24H [facility] PRN Reason: Protocol Stop: 06/23/18 18:01 Last Admin: 12/24/17 09:42 Dose: 40.8 mls/hr Dextrose (Dextrose 5%) 1,000 mls @ 100 mls/hr IVC .Q10H PRN PRN Reason: HYPOGLYCEMIA Stop: 06/23/18 20:19 Insulin Human Lispro (Humalog) 0 units SQ TIDAC [facility] PRN Reason: Protocol Stop: 06/24/18 18:16 Last Admin: 12/24/17 12:48 Dose: 10 units Insulin Human Lispro (Humalog) 0 units SQ HS [facility] PRN Reason: Protocol Stop: 06/24/18 21:01 Last Admin: 12/23/17 20:40 Dose: 5 units Lamotrigine (Lamictal) 100 mg PO DAILY [facility] Stop: 06/24/18 09:01 Last Admin: 12/24/17 09:23 Dose: 100 mg Loratadine (Claritin) 10 mg PO DAILY [facility] Stop: 06/24/18 09:01 Last Admin: 12/24/17 09:23 Dose: 10 mg Losartan Potassium (Cozaar) 100 mg PO DAILY [facility] PRN Reason: Protocol Stop: 06/24/18 09:01 Last Admin: 12/24/17 09:22 Dose: 100 mg Omeprazole (Prilosec) 40 mg PO DAILY [facility] PRN Reason: Protocol Stop: 06/24/18 09:01 Last Admin: 12/24/17 09:22 Dose: 40 mg Potassium Chloride (Potassium Chloride) 10 meq PO DAILY [facility] Stop: 06/24/18 09:01 Last Admin: 12/24/17 09:22 Dose: 10 meq Pregabalin (Lyrica) 150 mg PO BID [facility] Stop: 06/24/18 09:01 Last Admin: 12/24/17 09:22 Dose: 150 mg Zolpidem Tartrate (Ambien) 10 mg PO HS [facility] PRN Reason: Protocol Stop: 06/24/18 02:16 Last Admin: 12/23/17 20:40 Dose: 10 mg - Imaging and Cardiology Chest Xray: report reviewed Stress Test: report reviewed Echo: report reviewed - EKG Interpretation EKG results cardiology: other (Telemetry reviewed with average HR previous 12 hours noted to be 58, SB. PVCs and PACs noted.) Consult Discharge Plan - Plan Referrals: Dana Rivera, [employer] [Primary Care Provider] - 12/29/17 1:00 pm (Please follow up as schedule....)
--- NOTE | 2017-12-24 14:11 | Discharge Summary ---
Date of Encounter: 12/24/17 Time of Encounter: 14:09 - Discharge Diagnosis (1) Chest pain Priority: Primary Qualifiers: Chest pain type: unspecified Qualified Code(s): R07.9 - Chest pain, unspecified (2) Elevated troponin Priority: Primary Status: Acute (3) CAD (coronary artery disease) Priority: Primary Status: Acute Qualifiers: Coronary Disease-Associated Artery/Lesion type: [place] artery [place] vs. transplanted heart: [place] heart Associated angina: angina presence unspecified Qualified Code(s): I25.10 - Atherosclerotic heart disease of [place] coronary artery without angina pectoris (4) CHF (congestive heart failure) Priority: Secondary Status: Ruled-out Qualifiers: Heart failure type: unspecified Heart failure chronicity: chronic Qualified Code(s): I50.9 - Heart failure, unspecified (5) COPD (chronic obstructive pulmonary disease) Priority: Secondary Status: Chronic Qualifiers: COPD type: unspecified COPD Qualified Code(s): J44.9 - Chronic obstructive pulmonary disease, unspecified (6) Diabetes mellitus Priority: Secondary Status: Chronic Qualifiers: Diabetes mellitus type: type 2 Diabetes mellitus residential insulin use: with experimental welder use Diabetes mellitus complication status: with hyperglycemia Qualified Code(s): E11.65 - Type 2 diabetes mellitus with hyperglycemia; Z79.4 - [facility] (current) use of insulin (7) Hypertension Priority: Secondary Status: Chronic Qualifiers: Hypertension type: essential hypertension Qualified Code(s): I10 - Essential (primary) hypertension (8) Hyperlipidemia Priority: Secondary Status: Chronic Qualifiers: Hyperlipidemia type: unspecified Qualified Code(s): E78.5 - Hyperlipidemia , unspecified (9) Bradycardia, sinus Priority: Secondary Status: Acute Hospital course: HOSPITAL COURSE: We admitted this 52-year-old man with recurrent chest pain. He has had long- standing history of coronary artery disease; had multiple cardiac catheterization in the past. His troponin was borderline elevated. EKG failed to show any abnormalities. We presented him to cardiology. Echocardiogram has been done it did not show any abnormalities. Stress test was attempted. It was stopped as the patient developed severe hypertension and tachycardia. One can see that this patient had elevated blood pressure at admission and into this hospitalization. I did adjust his antihypertensives at discharge. Cardiology recommended medical treatments for this patient. They do not want proceed with another cardiac catheterization. CONDITION AT DISCHARGE: He feels good. He can walk without any pain. Denies dyspnea, coughing and wheezing. Skin: Free of rash and discoloration. Respiratory: Normal breath sounds with no crackles and wheezes bilaterally. CV: Heart is regular with no gallop or murmur. GI: Abdomen is flat and soft with no palpable mass or visceromegaly. Neuro exam: There is no focal deficits. Normal speech, swallowing and gait. SEE DISCHARGE ORDERS/MEDICATIONS.. Discharge discussed with: patient, family, social work - Time Spent with Patient Total time spent providing and/or coordinating discharge services: Greater than 30 minutes (40 minutes..) - Discharge Medications Prescriptions: amLODIPine [Norvasc] 10 mg PO DAILY #30 tablet cloNIDine HCl [Clonidine HCl] 0.2 mg PO BID #60 tablet Potassium Chloride 20 meq PO BID #60 tab.er.prt Home Medications: Aspirin 325 mg PO DAILY 07/22/17 [History] Buspirone HCl [Buspar] 30 mg PO DAILY 07/22/17 [History] Docusate Sodium [Stool Softener] 100 mg PO DAILY 07/22/17 [History] FLUoxetine HCl [Sarafem] 60 mg PO DAILY 07/22/17 [History] Furosemide [Lasix] 20 mg PO DAILY 07/22/17 [History] Insulin ASPART [NovoLOG] 0 unit SQ TIDWM 07/22/17 [History] Loratadine [Allergy Relief] 10 mg PO DAILY 07/22/17 [History] Losartan [Cozaar] 100 mg PO DAILY 07/22/17 [History] Omeprazole [PriLOSEC] 40 mg PO DAILY 07/22/17 [History] Simvastatin [Zocor] 20 mg PO HS 07/22/17 [History] Zolpidem [Ambien] 10 mg PO HS 07/22/17 [History] lamoTRIgine [Lamotrigine] 100 mg PO DAILY 07/22/17 [History] metFORMIN [Glucophage] 1,000 mg PO BIDWM 07/22/17 [History] Fluticasone/Vilanterol [Breo Ellipta 200-25 Mcg INH] 2 puff IH DAILY 12/22/17 [ History] Insulin Glargine,Hum.rec.anlog [Basaglar Kwikpen U-100] 40 unit SQ HS 12/22/17 [ History] Pregabalin [Lyrica] 150 mg PO BID 12/22/17 [History] Potassium Chloride 20 meq PO BID #60 tab.er.prt 12/24/17 [Rx] amLODIPine [Norvasc] 10 mg PO DAILY #30 tablet 12/24/17 [Rx] cloNIDine HCl [Clonidine HCl] 0.2 mg PO BID #60 tablet 12/24/17 [Rx] Allergies/Adverse Reactions: 3 Allergy/AdvReac Type Severity Reaction Status Date / Time promethazine [From Phenergan] Allergy Agitated Verified 02/27/15 21:09 plastic tape AdvReac Blister Uncoded 07/22/17 13:41 Date of admission: 12/22/17 19:20 Primary care physician: Dana Rivera CNP Discharging clinician: William Ta Anticipated date of discharge: 12/24/17 - Constitutional Vitals: Temp Pulse Resp BP Pulse Ox 97.9 F 56 18 147/75 97 12/24/17 11:37 12/24/17 11:37 12/24/17 11:37 12/24/17 11:37 12/24/17 11:37 General appearance: Present: A&O X 3, no acute distress, answers questions appropriately Exam: xx - Patient Status Disposition: Home, Self-Care Condition: Fair Functional capacity at discharge: independent ambulation Overall status at discharge: patient is back to baseline - Discharge Instructions Follow Up With: Ministerio Hudson MD [Partnered Physician] - (Office will call you with an appointment date and time ) Dana Rivera CNP [Primary Care Provider] - 12/29/17 1:00 pm (Please follow up as schedule....) Additional Instructions: FOLLOW-UP WITH DR. HUDSON, CARDIOLOGY -- IN 1-2 WEEKS.. - Diet and Activity Activity: resume usual activities as tolerated Diet: low fat, low cholesterol (LOW SALT..) - VTE Deep Vein Thrombosis/Pulmonary Embolism Present on Admission: No
--- NOTE | 2017-12-25 11:00 | Electrocardiograph Report ---
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
--- NOTE | 2017-12-25 11:17 | Electrocardiograph Report ---
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
== END 2017-12-24 15:49 | disposition home or self-care (01) ==
LOC: 2ANU 16:04 → EMEROOARM 16:04 → SUATTDRO 19:20 → 2ANU 20:29
PROVIDERS: ADMIT Internal Medicine; ATTEND Internal Medicine

== ENCOUNTER 2018-01-12 16:32 | Observation (INO) ==
[2018-01-12] MEDS ORDERED: Piperacillin/Tazobactam 3.375 GM in 0.9 % Sodium Chloride Mini Bag 100 ML IVPB ONE (16:55)
[2018-01-12] MEDS ORDERED: Acetaminophen IV 1,000 MG/100 ML INFUS..BTL IVPB ONE (16:55)
[2018-01-12 17:20] LABS: Basophils % 0.4 %; Eosinophils % 0.1 %; Hematocrit 37.9 % (37.5-50.1); Hemoglobin 12.4 g/dL (12.9-16.9); Immature Granulocytes % 0.4 % (0-4); Lymphocytes # 0.7 K/mcL (0.6-4.6); Mean Corpuscular HGB Conc 32.7 g/dL (31.6-35.5); Mean Corpuscular Volume 85.6 fL (83.0-100.0); Mean Platelet Volume 10.8 fL (9.4-12.4); Monocytes # 0.4 K/mcL (0.0-1.3); Monocytes % 4.6 %; Neutrophils # 7.4 K/mcL (1.6-8.9); Platelet Count 140 K/mcL (140-400); Red Blood Count 4.43 M/mcL (4.19-5.50); Red Cell Distribution Width 15.4 % (11.5-14.5); Segmented Neutrophils % 86.5 %
[2018-01-12 17:38] LABS: Alanine Aminotransferase 14 Units/L (7-52); Albumin/Globulin Ratio 1.3 (1.1-2.2); Alkaline Phosphatase 64 Units/L (34-104); Aspartate Amino Transferase 18 Units/L (13-39); BUN/Creatinine Ratio 15 (6-26); Bilirubin,Direct 0.1 mg/dL (0.0-0.2); Bilirubin,Indirect 0.4 mg/dL (0.0-1.2); Bilirubin,Total 0.5 mg/dL (0.3-1.0); Blood Urea Nitrogen 19 mg/dL (6-20); Calcium 9.3 mg/dL (8.6-10.3); Carbon Dioxide 21 mEq/L (23-29); Chloride 101 mEq/L (98-107); Glucose 192 mg/dL (70-105); Magnesium 1.6 mg/dL (1.6-2.6); Osmolality,Calculated 279 (280-300); Phosphorous 2.1 mg/dL (2.7-4.5); Potassium 3.7 mEq/L (3.5-5.1); Sodium 131 mEq/L (136-145); Troponin I < 0.03 ng/mL (< 0.04); eGFR For Non-African Americans 58 (> 60)
[2018-01-12 17:41] LABS: INR 1.4; Prothrombin Time 15.2 Seconds (9.4-12.1)
[2018-01-12 17:50] LABS: INR 1.3; Prothrombin Time 14.2 Seconds (9.4-12.1)
[2018-01-12 17:53] LABS: Activated Partial Thrombo Time 35.6 Seconds (26.0-36.0)
[2018-01-12] MEDS: 0.9 % Sodium Chloride 1,000 ML IVC SCH ×2 (18:09→20:48)
[2018-01-12 18:58] LABS: Bilirubin,Urine Negative (Negative); Blood,Urine Moderate (Negative); Clarity,Urine Clear (Clear); Color,Urine Yellow (Yellow); Glucose,Urine (UA) Normal (Normal); Ketones,Urine Negative (Negative); Leukocyte Esterase,Urine Negative (Negative); Nitrite,Urine Negative (Negative); PH,Urine 5.5 pH Units (5.0-8.0); Protein,Urine 100 mg/dL (Neg-Trace); Specific Gravity,Urine 1.025 (1.010-1.025); Urobilinogen,Urine Normal (Normal)
[2018-01-12 19:11] LABS: Bacteria,Urine None Seen per hpf (None-Few); Hyaline Casts,Urine None Seen per lpf (None-Few); RBC,Urine 15-30 per hpf (0-3); Squamous Epithelial Cell,Urine Many per lpf (None-Few); WBC,Urine 0-3 per hpf (0-3)
[2018-01-12] MEDS ORDERED: Isovue-370 500 ML INFUS..BTL IV ONE (19:24)
--- NOTE | 2018-01-12 21:54 | Emergency Department Note ---
Disposition Clinical Impression: Hernia Cellulitis Qualifiers: Site of cellulitis: unspecified site Qualified Code(s): L03.90 - Cellulitis, unspecified Sepsis Qualifiers: Sepsis type: sepsis due to unspecified organism Qualified Code(s): A41.9 - Sepsis, unspecified organism Disposition: Admitted As Inpatient Condition: Fair Time of Disposition: 21:54 General Adult HPI - General Chief complaint: ED Chest Pain Stated complaint: CP Time Seen by Provider: 01/12/18 16:48 Source: patient Limitations: no limitations Nursing Notes Reviewed: Yes Vital Signs Reviewed: Yes - History of Present Illness HPI Narrative: Patient is a 52-year-old male with past medical history of a large abdominal wall hernia since 2007 presents to the emergency department for evaluation of flulike symptoms as well as increasing redness around an open wound on his abdomen. The patient states that he has had approximately 3 surgeries on the hernia and his abdomen with the most recent surgery being in 2007 and which he has had mesh repairs that failed and left him with a very large abdominal musculature wall opening causing a large amount of his bowel to herniate which is been a chronic issue for at least 8 years now. The patient states that the surgeon that performed his surgeries was at [facility] and he retired and they have refused further surgeries on him at this time. The patient states that he does have plans to go to [facility] eventually but he is waiting to save up money and for his to get off work to be able to take him. Denies any abdominal pain. States he has had fevers off-and-on that he first noticed this morning he also noticed the redness of his abdomen this morning as well. Pain Scale: 10 - Related Data Home Medications Medication Instructions Recorded Confirmed Aspirin 325 mg PO DAILY 07/22/17 01/12/18 Buspirone HCl [Buspar] 30 mg PO BID PRN 07/22/17 01/12/18 Docusate Sodium [Stool Softener] 100 mg PO DAILY 07/22/17 01/12/18 FLUoxetine HCl [Sarafem] 60 mg PO DAILY 07/22/17 01/12/18 Furosemide [Lasix] 20 mg PO DAILY 07/22/17 01/12/18 Insulin ASPART [NovoLOG] 0 unit SQ TIDWM 07/22/17 01/12/18 Loratadine [Allergy Relief] 10 mg PO DAILY 07/22/17 01/12/18 Losartan [Cozaar] 100 mg PO DAILY 07/22/17 01/12/18 Omeprazole [PriLOSEC] 40 mg PO DAILY 07/22/17 01/12/18 Simvastatin [Zocor] 20 mg PO HS 07/22/17 01/12/18 Zolpidem [Ambien] 10 mg PO HS 07/22/17 01/12/18 lamoTRIgine [Lamotrigine] 100 mg PO DAILY 07/22/17 01/12/18 metFORMIN [Glucophage] 1,000 mg PO BIDWM 07/22/17 01/12/18 Fluticasone/Vilanterol [Breo 2 puff IH DAILY 12/22/17 01/12/18 Ellipta 200-25 Mcg INH] Insulin Glargine,Hum.rec.anlog 40 unit SQ HS 12/22/17 01/12/18 [Basaglar Kwikpen U-100] Pregabalin [Lyrica] 150 mg PO TID 12/22/17 01/12/18 Diclofenac Sodium [Voltaren] 75 mg PO BID 01/12/18 01/12/18 Potassium Chloride [Klor-Con 10] 10 meq PO BID 01/12/18 01/12/18 rOPINIRole [Requip] 1 mg PO HS 01/12/18 01/12/18 Previous Rx's Medication Instructions Recorded amLODIPine [Norvasc] 10 mg PO DAILY #30 tablet 12/24/17 cloNIDine HCl [Clonidine HCl] 0.2 mg PO BID #60 tablet 12/24/17 Allergies Allergy/AdvReac Type Severity Reaction Status Date / Time promethazine [From Phenergan] Allergy Agitated Verified 01/12/18 16:39 plastic tape AdvReac Blister Uncoded 07/22/17 13:41 All systems ED: reviewed and negative except as stated. Review of Systems: As Per HPI Constitutional: Reports: fever. Denies: chills Cardiovascular: Denies: chest pain, palpitations, dyspnea on exertion Respiratory: Denies: cough, dyspnea Gastrointestinal: Reports: nausea, vomiting. Denies: abdominal pain, diarrhea Genitourinary: Denies: urgency Musculoskeletal: Reports: other (Body aches) Integumentary: Reports: rash Past Medical History - Past Medical History Attestation: Yes The following information was validated with the patient. Medical history: Reports: CHF, COPD, coronary artery disease, CVA, diabetes, hyperlipidemia, hypertension, myocardial infarction, peripheral artery disease, other Surgical history: Reports: appendectomy, cholecystectomy, herniorrhaphy (x2) Psychiatric history: Reports: anxiety - Social History Smoking Status: Current every day smoker Smokeless Tobacco Status: No Alcohol use: Reports: none Drug use: Reports: none Physical Exam - General Limitations: no limitations General appearance: alert - Head Head exam: atraumatic, normocephalic - Eye Eye exam: Present: normal appearance, PERRL, EOMI - ENT ENT exam: normal exam, normal oropharynx, mucous membranes moist - Neck Neck exam: Present: normal inspection, full ROM, trachea midline. Absent: tenderness - Chest Chest inspection: Present: normal inspection. Absent: symmetric chest wall rise, tenderness, rash - Respiratory Respiratory exam: Present: normal lung sounds bilaterally. Absent: respiratory distress, wheezes - Cardiovascular Cardiovascular exam: Present: regular rate, normal rhythm, normal heart sounds, +S1, +S2 - Abdominal Exam Abdominal exam: Present: distention, other (Large abdominal wall hernia encompassing the entire left side of the patient's abdomen pain over his pannus. The bowel is very superficial to the abdominal wall in a way that in which she can see peristalsis to the abdominal wall skin. The patient has a 10 cm x 2 cm open wound on his abdomen that is just deep to subcutaneous fat and appears to be a chronic wound with surrounding cellulitis encompassing thing the lower abdomen. No area of induration or fluctuance. Small amount of purulent- appearing mucus around the open wound.). Absent: tenderness - Back Exam Back exam: Present: normal inspection, full ROM. Absent: tenderness - Neurological Exam Neurological exam: Present: alert, oriented X3 - Psychiatric Psychiatric exam: Present: normal affect, normal mood Course Course Narrative: Patient presents with a chronic abdominal wound secondary to a failed repair of a hernia. He denies any abdominal painhas been able to tolerate by mouth today although he has had 2 episodes of emesis. Denies any diarrhea no hematemesis or melena or hematochezia. Patient states his main concern is that is been having flulike symptoms throughout the day since early this morning Vel fevers as well as a new red rash surrounding his chronic wound. States that he is recommended to [facility] for further repair of his hernia but has been unable to go due to his financial situation and transportation status. - Reevaluation(s) Reevaluation #1: I discussed the course of care with the patient and recommended that he be transferred to [facility] for further evaluation and treatment of his cellulitis of his abdominal wall as well as for consideration of repair of his chronic hernia. I discussed that even though he does not appear to have incarcerated or straining related bowel at this time appears to mainly be a superficial cellulitic infection so figure be best that he be transferred to [facility] for definitive treatment of his hernia as well as if any progression of symptoms involving the hernia were to occur he have surgeons available. The patient refused at that time and requested to sign out AMA. I discussed with the patient asking if he be willing to stay at this hospital would be continued on IV antibiotics for his cellulitis. I discussed the patient's case with the hospitalist on-call, Dr. Lawton. The hospitalist requested that I contact the general surgery on-call further reassurance of admission of this patient. I discussed the patient's case with Dr. Tucker, whom stated that he would not perform a operations on this patient however it seems appropriate to bring the patient in for treatment of his cellulitis. Discussed with the patient he agrees with this plan. Time: 21:56 Vital Signs Temperature 102.8 F H 01/12/18 16:37 Pulse Rate 91 01/12/18 16:37 Respiratory Rate 22 01/12/18 16:37 Blood Pressure 162/76 01/12/18 16:37 O2 Sat by Pulse Oximetry 98 01/12/18 16:37 Temperature 101.5 F H 01/12/18 23:15 Pulse Rate 77 01/12/18 21:16 Respiratory Rate 12 01/12/18 23:15 Blood Pressure 135/68 01/12/18 23:15 O2 Sat by Pulse Oximetry 99 01/12/18 21:16 Oxygen Delivery Oxygen Delivery Nasal Cannula Medical Decision Making - Medical Records Medical records reviewed: Yes I reviewed the patient's medical records. - Lab Data Lab results reviewed: Yes I reviewed the patient's lab results. Result diagrams: 01/12/18 17:01 01/12/18 17:01 Lab Results 01/12/18 01/12/18 01/12/18 Range/Units 17:01 17:01 17:01 WBC 8.5 (4.3-11.1) K/mcL RBC 4.43 (4.19-5.50) M/mcL Hgb 12.4 L (12.9-16.9) g/dL Hct 37.9 (37.5-50.1) % MCV 85.6 (83.0-100.0) fL MCH 28.0 (28.0-33.3) pg MCHC 32.7 (31.6-35.5) g/dL RDW 15.4 H (11.5-14.5) % Plt Count 140 (140-400) K/mcL MPV 10.8 (9.4-12.4) fL Immature Gran % 0.4 (0-4) % Seg Neutrophils % 86.5 % Lymphocytes % 8.0 % Monocytes % 4.6 % Eosinophils % 0.1 % Basophils % 0.4 % Neutrophils # 7.4 (1.6-8.9) K/mcL Lymphocytes # 0.7 (0.6-4.6) K/mcL Monocytes # 0.4 (0.0-1.3) K/mcL Eosinophils # 0.0 (0.0-0.6) K/mcL Basophils # 0.0 (0.0-0.2) K/mcL PT 14.2 H (9.4-12.1) Seconds INR 1.3 APTT 35.6 (26.0-36.0) Seconds Sodium (136-145) mEq/L Potassium (3.5-5.1) mEq/L Chloride (98-107) mEq/L Carbon Dioxide (23-29) mEq/L BUN (6-20) mg/dL Creatinine (0.70-1.30) mg/dL Est GFR ( Amer) (> 60) Est GFR (Non-Af Amer) (> 60) BUN/Creatinine Ratio (6-26) Glucose (70-105) mg/dL Calculated Osmolality (280-300) Lactic Acid (0.5-2.2) mmol/L Calcium (8.6-10.3) mg/dL Phosphorus (2.7-4.5) mg/dL Magnesium (1.6-2.6) mg/dL Total Bilirubin (0.3-1.0) mg/dL Direct Bilirubin (0.0-0.2) mg/dL Indirect Bilirubin (0.0-1.2) mg/dL AST (13-39) Units/L ALT (7-52) Units/L Alkaline Phosphatase (34-104) Units/L Troponin I (< 0.04) ng/mL B-Natriuretic Peptide 43 (Less than 100) pg/mL Serum Total Protein (6.4-8.9) g/dL Albumin (3.5-5.7) g/dL Globulin (2.4-3.5) g/dL Albumin/Globulin Ratio (1.1-2.2) Urine Color (Yellow) Urine Clarity (Clear) Urine pH (5.0-8.0) pH Units Ur Specific [place] (1.010-1.025) Urine Protein (Neg-Trace) mg/dL Urine Glucose (UA) (Normal) mg/dL Urine Ketones (Negative) mg/dL Urine Blood (Negative) Urine Nitrite (Negative) Urine Bilirubin (Negative) Urine Urobilinogen (Normal) mg/dL Ur Leukocyte Esterase (Negative) Urine Microscopic RBC (0-3) per hpf Urine Microscopic WBC (0-3) per hpf Ur Squamous Epith Cells (None-Few) per lpf Urine Bacteria (None-Few) per hpf Hyaline Casts (None-Few) per lpf Ur Culture Indicated? (NO) 01/12/18 01/12/18 01/12/18 Range/Units 17:01 17:02 17:25 WBC (4.3-11.1) K/mcL RBC (4.19-5.50) M/mcL Hgb (12.9-16.9) g/dL Hct (37.5-50.1) % MCV (83.0-100.0) fL MCH (28.0-33.3) pg MCHC (31.6-35.5) g/dL RDW (11.5-14.5) % Plt Count (140-400) K/mcL MPV (9.4-12.4) fL Immature Gran % (0-4) % Seg Neutrophils % % Lymphocytes % % Monocytes % % Eosinophils % % Basophils % % Neutrophils # (1.6-8.9) K/mcL Lymphocytes # (0.6-4.6) K/mcL Monocytes # (0.0-1.3) K/mcL Eosinophils # (0.0-0.6) K/mcL Basophils # (0.0-0.2) K/mcL PT 15.2 H (9.4-12.1) Seconds INR 1.4 APTT (26.0-36.0) Seconds Sodium 131 L (136-145) mEq/L Potassium 3.7 (3.5-5.1) mEq/L Chloride 101 (98-107) mEq/L Carbon Dioxide 21 L (23-29) mEq/L BUN 19 (6-20) mg/dL Creatinine 1.30 (0.70-1.30) mg/dL Est GFR ( Amer) > 60 (> 60) Est GFR (Non-Af Amer) 58 L (> 60) BUN/Creatinine Ratio 15 (6-26) Glucose 192 H (70-105) mg/dL Calculated Osmolality 279 L (280-300) Lactic Acid 2.8 H (0.5-2.2) mmol/L Calcium 9.3 (8.6-10.3) mg/dL Phosphorus 2.1 L (2.7-4.5) mg/dL Magnesium 1.6 (1.6-2.6) mg/dL Total Bilirubin 0.5 (0.3-1.0) mg/dL Direct Bilirubin 0.1 (0.0-0.2) mg/dL Indirect Bilirubin 0.4 (0.0-1.2) mg/dL AST 18 (13-39) Units/L ALT 14 (7-52) Units/L Alkaline Phosphatase 64 (34-104) Units/L Troponin I < 0.03 (< 0.04) ng/mL B-Natriuretic Peptide (Less than 100) pg/mL Serum Total Protein 7.0 (6.4-8.9) g/dL Albumin 4.0 (3.5-5.7) g/dL Globulin 3.0 (2.4-3.5) g/dL Albumin/Globulin Ratio 1.3 (1.1-2.2) Urine Color (Yellow) Urine Clarity (Clear) Urine pH (5.0-8.0) pH Units Ur Specific [place] (1.010-1.025) Urine Protein (Neg-Trace) mg/dL Urine Glucose (UA) (Normal) mg/dL Urine Ketones (Negative) mg/dL Urine Blood (Negative) Urine Nitrite (Negative) Urine Bilirubin (Negative) Urine Urobilinogen (Normal) mg/dL Ur Leukocyte Esterase (Negative) Urine Microscopic RBC (0-3) per hpf Urine Microscopic WBC (0-3) per hpf Ur Squamous Epith Cells (None-Few) per lpf Urine Bacteria (None-Few) per hpf Hyaline Casts (None-Few) per lpf Ur Culture Indicated? (NO) 01/12/18 01/12/18 Range/Units 18:35 20:51 WBC (4.3-11.1) K/mcL RBC (4.19-5.50) M/mcL Hgb (12.9-16.9) g/dL Hct (37.5-50.1) % MCV (83.0-100.0) fL MCH (28.0-33.3) pg MCHC (31.6-35.5) g/dL RDW (11.5-14.5) % Plt Count (140-400) K/mcL MPV (9.4-12.4) fL Immature Gran % (0-4) % Seg Neutrophils % % Lymphocytes % % Monocytes % % Eosinophils % % Basophils % % Neutrophils # (1.6-8.9) K/mcL Lymphocytes # (0.6-4.6) K/mcL Monocytes # (0.0-1.3) K/mcL Eosinophils # (0.0-0.6) K/mcL Basophils # (0.0-0.2) K/mcL PT (9.4-12.1) Seconds INR APTT (26.0-36.0) Seconds Sodium (136-145) mEq/L Potassium (3.5-5.1) mEq/L Chloride (98-107) mEq/L Carbon Dioxide (23-29) mEq/L BUN (6-20) mg/dL Creatinine (0.70-1.30) mg/dL Est GFR ( Amer) (> 60) Est GFR (Non-Af Amer) (> 60) BUN/Creatinine Ratio (6-26) Glucose (70-105) mg/dL Calculated Osmolality (280-300) Lactic Acid 0.6 (0.5-2.2) mmol/L Calcium (8.6-10.3) mg/dL Phosphorus (2.7-4.5) mg/dL Magnesium (1.6-2.6) mg/dL Total Bilirubin (0.3-1.0) mg/dL Direct Bilirubin (0.0-0.2) mg/dL Indirect Bilirubin (0.0-1.2) mg/dL AST (13-39) Units/L ALT (7-52) Units/L Alkaline Phosphatase (34-104) Units/L Troponin I (< 0.04) ng/mL B-Natriuretic Peptide (Less than 100) pg/mL Serum Total Protein (6.4-8.9) g/dL Albumin (3.5-5.7) g/dL Globulin (2.4-3.5) g/dL Albumin/Globulin Ratio (1.1-2.2) Urine Color Yellow (Yellow) Urine Clarity Clear (Clear) Urine pH 5.5 (5.0-8.0) pH Units Ur Specific [place] 1.025 (1.010-1.025) Urine Protein 100 H (Neg-Trace) mg/dL Urine Glucose (UA) Normal (Normal) mg/dL Urine Ketones Negative (Negative) mg/dL Urine Blood Moderate H (Negative) Urine Nitrite Negative (Negative) Urine Bilirubin Negative (Negative) Urine Urobilinogen Normal (Normal) mg/dL Ur Leukocyte Esterase Negative (Negative) Urine Microscopic RBC 15-30 H (0-3) per hpf Urine Microscopic WBC 0-3 (0-3) per hpf Ur Squamous Epith Cells Many H (None-Few) per lpf Urine Bacteria None Seen (None-Few) per hpf Hyaline Casts None Seen (None-Few) per lpf Ur Culture Indicated? NO (NO) - Radiology Data Radiology results reviewed: Yes I reviewed the patient's radiology results. Chest X-Ray 01/12/18 16:52 IMPRESSION: No acute process. D/ / Amanda Martinez MD / Amanda Martinez MD Interpreting Provider: Amanda Martinez MD Abdomen/Pelvis CT 01/12/18 19:24 IMPRESSION: 1. Large anterior abdominal wall hernia containing the majority of the small bowel and colon. No findings of small bowel obstruction or strangulation. 2. No renal, ureteral or intravesicular calculi. No hydronephrosis of either kidney. 3. Moderate diffuse hepatic steatosis and nonspecific hepatosplenomegaly, similar to prior. D/ / Tre Diaz / Tre Diaz Interpreting Provider: Tre Diaz - EKG Data EKG #1 EKG attestation: Yes I reviewed and interpreted this EKG. EKG results narrative: EKG done at 16:53 shows sinus rhythm at a rate of 90 bpm. Intervals within normal limits. Normal axis. No signs of ST elevation, ST depression or Q waves present. Attestation Statement - Attestation Attestation: I examined this patient and my medical decision-making was reviewed with the Resident Physician. I agree with the documented findings, disposition and treatment plan as described except to the extent set forth below. Findings consistent with abdominal wall cellulitis, sepsis, IV fluids pressure antibiotics. We did consult surgery at the hospitalist request for significant abdominal wall wound with hernia. The patient is refusing to transported any other Hospital of that this was recommended. He will be admitted the hospital with IV fluids ongoing and a microbial therapy surgical consultation and treatment of sepsis.
[2018-01-13] MEDS ORDERED: Acetaminophen 325 MG TABLET PO ONE (00:49)
[2018-01-13] MEDS ORDERED: D5% in Water 1,000 ML IVC PRN (01:06)
[2018-01-13] MEDS ORDERED: Dextrose Gel 15 GM/37.5 ML TUBE PO PRN ×2 (01:06)
[2018-01-13] MEDS ORDERED: *HR* Dextrose 50 % in Water (Syg) 50 ML SYRINGE IVP PRN (01:06)
--- NOTE | 2018-01-13 01:33 | Internal Med History&Physical ---
Addendum entered and electronically signed by Wiliam Pelaez MD 01/13/18 19:18: I saw and evaluated the patient. I reviewed the residents note, performed my own physical examination and agree with findings and plan as documented in the residents note. Patient seen and examined on the morning of 01/13/18. Patient has non-healing wound with apparent cellulitis. Denies discomfort at this time. Found to have elevated INR of unknown etiology as well. Will follow up with hepatic panel, and continue antibiotics for cellulitis. Surgery contacted from ER, agreed to consult. Original Note: Date of Encounter: 01/13/18 Time of Encounter: 01:33 Internal Medicine - H&P: HPI Chief complaint: Cellulitis Admitted From: Emergency Dept History of present illness: Mr. Jimenez is a 52 year old male with a history of CHF, COPD, CAD, TIA, diabetes, hyperlipidemia, hypertension, peripheral artery disease, and a prior NC. He also has a large abdominal wall hernia secondary to failed wound closure after surgery. He presented to the ED for evaluation of fever and body aches that was present when he woke up yesterday morning. He also reported a small open wound overlying his abdominal hernia and increased redness of the surrounding skin. He voiced that he was unsure how long that had been present as he reports no superficial sensory perception of that side of his abdomen. Patient also reported headaches and multiple episodes of emesis yesterday. He denied any diarrhea or change in bowel habits. Patient reported no relief of body aches after receiving acetaminophen. Initial vital signs obtained in the ED were as follows: Temperature 102.8, HR 91, RR 22, and BP 162/76. Patient did meet sepsis criteria at that time due to fever, tachypnea, and presumed source of infection. He was also found to have an elevated lactic acid of 2.8. He received a fluid bolus of 2 L while in the ED; repeat lactic acid was found to be 0.6. Chest x-ray revealed no acute process. Abdominal CT was significant for a large anterior abdominal wall hernia containing majority of the small bowel and colon; however, no signs of small bowel obstruction or strangulation were found. Moderate diffuse hepatic steat osis and nonspecific hepatosplenomegaly were also noted. Patient was started on broad-spectrum antibiotic therapy with vancomycin and zosyn and admitted to the hospitalist service for continued IV antibiotics and management. Patient was seen and evaluated at the bedside. He appeared to be sleeping comfortably, and anjelica easily to voice. He reported continued body aches that had not improved and requests pain medication, stating that he takes Percocoet at home. He denies any other acute complaints or concerns at this time. ROS was negative for sinus congestion, cough, increased sputum, shortness of breath, chest pain, change in bowel habits, or worsening lower extremity edema. Past Med Surg Social Fam HX - Past Medical History Medical history: CHF, COPD, coronary artery disease, CVA, diabetes, hyperlipidemia, hypertension, myocardial infarction, peripheral artery disease, other Additional medical history: CVA-2017 Psychiatric history: anxiety - Past Surgical History Surgical History: appendectomy, cholecystectomy, herniorrhaphy (x2) Additional surgical history: Bowel resection/ perforated repair August 1996. August 1997 hernia repair. May 2007 mesh and hernia repair - Social History Smoking Status: Current every day smoker Smokeless Tobacco Status: No Alcohol use: none Drug use: none - Family History Mother Living Status: Hx Family Cardiac Disorders: Yes (heart disease) Hx Family Genitourinary Disorders: Yes (renal disease) Father Living Status: Still Living Hx Family Cardiac Disorders: Yes (valve replacement, heart disease) Hx Family Respiratory Disorders: No Hx Family Cancer: No Hx Family GI Disorders: No Hx Family Genitourinary Disorders: No Hx Family Endocrine Disorder: Yes (DM) Hx Family Musculoskeletal Disorders: No Hx Family Neuromuscular Disorders: No Hx Family Neurologic Disorders: No Hx Family HEENT Disorders: No Hx Family Autoimmune Disorders: No Hx Family Reproductive Disorders: No Hx Family Psychosocial Disorders: No Hx Family Medical Disorders: No Internal Medicine - H&P: Meds Aspirin 325 mg PO DAILY 07/22/17 [History] Buspirone HCl [Buspar] 30 mg PO BID PRN 07/22/17 [History] Docusate Sodium [Stool Softener] 100 mg PO DAILY 07/22/17 [History] FLUoxetine HCl [Sarafem] 60 mg PO DAILY 07/22/17 [History] Furosemide [Lasix] 20 mg PO DAILY 07/22/17 [History] Insulin ASPART [NovoLOG] 0 unit SQ TIDWM 07/22/17 [History] Loratadine [Allergy Relief] 10 mg PO DAILY 07/22/17 [History] Losartan [Cozaar] 100 mg PO DAILY 07/22/17 [History] Omeprazole [PriLOSEC] 40 mg PO DAILY 07/22/17 [History] Simvastatin [Zocor] 20 mg PO HS 07/22/17 [History] Zolpidem [Ambien] 10 mg PO HS 07/22/17 [History] lamoTRIgine [Lamotrigine] 100 mg PO DAILY 07/22/17 [History] metFORMIN [Glucophage] 1,000 mg PO BIDWM 07/22/17 [History] Fluticasone/Vilanterol [Breo Ellipta 200-25 Mcg INH] 2 puff IH DAILY 12/22/17 [History] Insulin Glargine,Hum.rec.anlog [Basaglar Kwikpen U-100] 40 unit SQ HS 12/22/17 [History] Pregabalin [Lyrica] 150 mg PO TID 12/22/17 [History] amLODIPine [Norvasc] 10 mg PO DAILY #30 tablet 12/24/17 [Rx] cloNIDine HCl [Clonidine HCl] 0.2 mg PO BID #60 tablet 12/24/17 [Rx] Diclofenac Sodium [Voltaren] 75 mg PO BID 01/12/18 [History] Potassium Chloride [Klor-Con 10] 10 meq PO BID 01/12/18 [History] rOPINIRole [Requip] 1 mg PO HS 01/12/18 [History] Allergy/AdvReac Type Severity Reaction Status Date / Time promethazine [From Phenergan] Allergy Agitated Verified 01/12/18 16:39 plastic tape AdvReac Blister Uncoded 07/22/17 13:41 All Systems PM: A 10-system review of systems was performed and is negative for pertinent findings except as documented above in the HPI. - Constitutional Vitals: Temp Pulse Resp BP Pulse Ox 99.8 F H 74 19 129/65 96 01/12/18 23:44 01/12/18 23:44 01/12/18 23:44 01/12/18 23:44 01/12/18 23:44 Exam: GENERAL: Well-developed well-nourished adult male sleeping in bed and in no acute distress. He wakes easily to voice. HEENT: Atraumatic and normocephalic. CARDIOVASCULAR: Regular rate and rhythm. S1 and S2 present. No murmurs, gallops, or rubs. RESPIRATORY: Diffusely decreased breath sounds bilaterally. No wheezes, rales, or rhonchi noted. GASTROINTESTINAL: Active bowel sounds are audible without auscultation. Bandage present over the open wound on abdomen. Patient's abdominal hernia is clearly present, with erythema and warmth of the extremity skin. Patient expresses some tenderness to palpation. EXTREMITIES: No clubbing or cyanosis. Moderate dependent lower extremity edema present bilaterally. SKIN: Patient appears mildly diaphoretic. Skin is warm without evidence of acute change, with the exception of the above mentioned area on his abdomen. NEUROLOGIC: Alert and oriented 3. Patient responds appropriately to questions and is cooperative with exam. No apparent focal deficits. Internal Med - H&P Results - Labs CBC & Chem 7: 01/13/18 04:09 01/13/18 04:09 Labs: Short CBC 01/12/18 Range/Units 17:01 WBC 8.5 (4.3-11.1) K/mcL Hgb 12.4 L (12.9-16.9) g/dL Hct 37.9 (37.5-50.1) % Plt Count 140 (140-400) K/mcL Neutrophils # 7.4 (1.6-8.9) K/mcL BMP 01/12/18 17:01 Sodium 131 L Potassium 3.7 Chloride 101 Carbon Dioxide 21 L BUN 19 Creatinine 1.30 Glucose 192 H Calcium 9.3 Cardiac Enzymes 01/12/18 Range/Units 17:01 Troponin I < 0.03 (< 0.04) ng/mL Liver Function 01/12/18 Range/Units 17:01 Total Bilirubin 0.5 (0.3-1.0) mg/dL Direct Bilirubin 0.1 (0.0-0.2) mg/dL AST 18 (13-39) Units/L ALT 14 (7-52) Units/L Alkaline Phosphatase 64 (34-104) Units/L Albumin 4.0 (3.5-5.7) g/dL Urine 01/12/18 Range/Units 18:35 Urine Color Yellow (Yellow) Urine Clarity Clear (Clear) Urine pH 5.5 (5.0-8.0) pH Units Ur Specific [place] 1.025 (1.010-1.025) Urine Protein 100 H (Neg-Trace) mg/dL Urine Glucose (UA) Normal (Normal) mg/dL - Impressions ITS Impressions Chest X-Ray 01/12/18 16:52 IMPRESSION: No acute process. D/ / Amanda Martinez MD / Amanda Martinez MD Interpreting Provider: Amanda Martinez MD Abdomen/Pelvis CT 01/12/18 19:24 IMPRESSION: 1. Large anterior abdominal wall hernia containing the majority of the small bowel and colon. No findings of small bowel obstruction or strangulation. 2. No renal, ureteral or intravesicular calculi. No hydronephrosis of either kidney. 3. Moderate diffuse hepatic steatosis and nonspecific hepatosplenomegaly, similar to prior. D/ / Tre Diaz / Tre Diaz Interpreting Provider: Tre Diaz - Assessment and plan (1) Cellulitis Current Visit: Yes Status: Acute Assessment and plan: Repeat lactic acid decreased from 2.8 to 0.6 after 2 liters of IV fluid. Broad- spectrum IV antibiotic therapy initiated in the ED. - Repeat lactic acid in 6H - Continue vancomycin with pharmacy to dose to therapeutic level - Continue zosyn 3.375mg Q8H Qualifiers: Site of cellulitis: other site Qualified Code(s): L03.818 - Cellulitis of other sites (2) Nonhealing surgical wound Current Visit: No Status: Chronic Assessment and plan: Present at the time of admission. Patient does have an open wound on his abdomen overlying this herniation, with skin changes consistent with acute cellulitis. - Wound care consult - Surgery consult placed prior to admission from the ED - Consult to medical social consultant for help regarding possible financial assistance for future wound closure surgery Qualifiers: Encounter type: initial encounter Qualified Code(s): T81.89XA - Other complications of procedures, not elsewhere classified, initial encounter (3) Elevated INR Current Visit: Yes Status: Acute Assessment and plan: Unknown etiology. Patient is not on anticoagulants. Initial value of 1.3, with repeat of 1.4. - Obtain hepatic function panel - Consider RUQ ultrasound and/or GI consult based on lab results (4) Hypophosphatemia Current Visit: Yes Status: Acute Assessment and plan: Unknown etiology. Patient's phosphorus on admission was 2.1. - Currently receiving 30mmol sodium phosphate - Recheck serum phosphate after infusion is complete (5) Diabetes mellitus Current Visit: No Status: Chronic Assessment and plan: History of diabetes controlled with combination of oral and insulin therapy. Blood glucose on initial labs was found to be elevated at 192. 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 Patient had an echocardiogram on 12/23/2017, which showed a LVEF of 60-65%. Mild mitral regurgitation was also noted. Patient does not appear to be having an acute CHF exacerbation, and denies any worsening shortness of breath, orthopnea, or excessive lower extremity edema. - Continue lasix 20mg daily - Continue clinical monitoring for signs of acute exacerbation (8) COPD (chronic obstructive pulmonary disease) Current Visit: No Status: Chronic Assessment and plan: - Duonebs 3mL Q4H PRN Qualifiers: COPD type: unspecified COPD Qualified Code(s): J44.9 - Chronic obstructive pulmonary disease, unspecified (9) Hyperlipidemia Current Visit: No Status: Chronic Assessment and plan: - Continue home dose of simvastatin 10mg QHS Qualifiers: Hyperlipidemia type: unspecified Qualified Code(s): E78.5 - Hyperlipidemia, unspecified (10) DVT prophylaxis Current Visit: No Status: Acute Assessment and plan: - SCDs - Time Spent With Patient Total time spent is greater than 50% in coordination of care (as documented) at patient's floor/unit and/or counseling patient:
[2018-01-13 04:24] LABS: Basophils % 0.5 %; Eosinophils % 0.5 %; Hematocrit 34.8 % (37.5-50.1); Hemoglobin 11.5 g/dL (12.9-16.9); Immature Granulocytes % 0.3 % (0-4); Lymphocytes # 0.8 K/mcL (0.6-4.6); Lymphocytes % 13.8 %; Mean Corpuscular Volume 84.9 fL (83.0-100.0); Mean Platelet Volume 10.5 fL (9.4-12.4); Monocytes # 0.5 K/mcL (0.0-1.3); Monocytes % 7.4 %; Neutrophils # 4.7 K/mcL (1.6-8.9); Platelet Count 119 K/mcL (140-400); Red Cell Distribution Width 15.6 % (11.5-14.5); Segmented Neutrophils % 77.5 %
[2018-01-13 04:42] LABS: BUN/Creatinine Ratio 16 (6-26); Blood Urea Nitrogen 16 mg/dL (6-20); Calcium 8.4 mg/dL (8.6-10.3); Carbon Dioxide 20 mEq/L (23-29); Chloride 107 mEq/L (98-107); Glucose 172 mg/dL (70-105); Osmolality,Calculated 283 (280-300); Potassium 3.6 mEq/L (3.5-5.1); Sodium 134 mEq/L (136-145); eGFR For Non-African Americans > 60 (> 60)
[2018-01-13] MEDS ORDERED: Ipratropium/Albuterol Neb 3 ML IH PRN (06:44)
[2018-01-13 07:02] LABS: Alanine Aminotransferase 13 Units/L (7-52); Albumin 3.5 g/dL (3.5-5.7); Albumin/Globulin Ratio 1.3 (1.1-2.2); Alkaline Phosphatase 54 Units/L (34-104); Aspartate Amino Transferase 19 Units/L (13-39); Bilirubin,Direct 0.1 mg/dL (0.0-0.2); Bilirubin,Indirect 0.3 mg/dL (0.0-1.2); Bilirubin,Total 0.4 mg/dL (0.3-1.0); Globulin 2.8 g/dL (2.4-3.5); Total Protein 6.3 g/dL (6.4-8.9)
[2018-01-13] MEDS ORDERED: amLODIPine 5 MG TABLET PO SCH (09:00)
[2018-01-13] MEDS: Insulin LISPRO 300 UNITS/3 ML VIAL SQ SCH ×4 (09:18→21:07)
[2018-01-13] MEDS: Aspirin 325 MG TABLET PO SCH (09:19)
[2018-01-13] MEDS: FLUoxetine 20 MG CAPSULE PO SCH (09:19)
[2018-01-13] MEDS: Pregabalin 75 MG CAPSULE PO SCH ×3 (09:20→21:05)
[2018-01-13] MEDS: Piperacillin/Tazobactam 3.375 GM in 0.9 % Sodium Chloride Mini Bag 100 ML IVPB SCH ×2 (09:20→16:24)
[2018-01-13] MEDS: cloNIDine HCl 0.1 MG TABLET PO SCH ×2 (09:20→21:06)
[2018-01-13] MEDS: Loratadine 10 MG TABLET PO SCH (09:20)
[2018-01-13] MEDS: Furosemide 20 MG TABLET PO SCH (09:20)
--- NOTE | 2018-01-13 10:10 | Event Note ---
Date of Encounter: 01/13/18 Time of Encounter: 10:08 Patient seen and evaluated at bedside. hemodynamically stable. Admitted for sepsis possible due to cellulitis of the abdominal wall vs nonhealing post surgical wound. continue IV antibioitcs on piperacillin/tazobactam and vancomycin. surgery consulted
[2018-01-13] MEDS: traMADol 50 MG TABLET PO PRN ×2 (13:21→21:52)
--- NOTE | 2018-01-13 20:53 | General Surgery Consult Note ---
Date of Encounter: 01/13/18 Time of Encounter: 20:22 History of Present Illness Consult date: 01/12/18 Requesting physician: Tyrone Smith History of present illness: 52-year-old male referred to surgical services at the request of the hospitalist service after presenting to the emergency department for further evaluation of a large recurrent ventral hernia. Patient apparently presented to the emergency department with a temperature of 102.8 with complaints of multiple body aches this was not associated with any nausea, vomiting, increase in abdominal pain. There was a concern the patient was septic related to a small open wound in the midline anterior abdomen related to a failed wound closure after recurrent ventral hernia repair about 10 years ago. The patient describes a nonhealing wound for the past 10 years. Past medical history: CHF, COPD, coronary artery disease with prior NV, stroke/TIA 2016, morbid obesity, diabetes, hyperlipidemia, hypertension, peripheral vascular disease; anxiety Surgical history: Ventral hernia repair described to have "lasted 10 years"; in 2007 the patient presented to [facility] with a recurrent hernia/possible incarceration requiring exploratory celiotomy and repair of the hernia. The patient describes breakdown of this hernia several months later and it has persisted since. Medical records indicate a history of prior appendectomy, cholecystectomy, bowel resection for perforated bowel in August 1996; hernia repair in 1997; repeat hernia repair May 2007. Allergies include promethazine and plastic tape with exposure resulting in unspecified blistering Medications: Aspirin 325 mg by mouth daily Buspirone 30 mg by mouth twice a day when necessary Docusate 100 mg by mouth daily Fluoxetine 60 mg by mouth daily Furosemide 20 mg by mouth daily NovoLog per sliding scale 3 times a day with meals Loratadine 10 mg by mouth daily Losartan 100 mg by mouth daily Omeprazole 40 mg by mouth daily Simvastatin 20 mg by mouth daily at bedtime Zolpidem 10 mg by mouth daily at bedtime Lamotrigine 100 mg by mouth daily Metformin 1000 milligrams by mouth twice a day with meals The above medications have been obtained per history dated 07/22/17 The following medications have been obtained per history dated 12/22/17 to present Fluticasone/vilanterol (Brio Ellipta) 200/25 g per inhalation; 2 puffs daily Insulin glargine 40 units subcutaneous daily at bedtime Pregabalin 150 mg by mouth 3 times a day Amlodipine 10 mg by mouth daily Clonidine 0.2 mg by mouth twice a day Diclofenac 75 mg by mouth twice a day Potassium 10 mEq by mouth twice a day Ropinirole 1 mg by mouth daily at bedtime Social history: Patient continues to smoke - the patient did not specify quantity or length of time; denies any alcohol or illicit drug use Physical examination: Morbidly obese patient seated at bedside in no obvious acute distress Patient was febrile to 102.8, 01/12/18; 1637 hrs. - he has been afebrile today. Pulse ranging 62-71, respirations 18 the 20; blood pressure 118/60 to 158/74. Skin is warm without obvious jaundice Lungs: Clear; no obvious abdominal pain with deep inspiration Cardiac: Right was regular with no appreciable murmurs Abdomen markedly protuberant, with significant asymmetry with multiple large ventral hernias - the largest, most prominent is left of midline. There is no obvious tenderness but clearly there is loss of domain. There is a nonhealing linear midline wound - the patient indicates this wound has been present since 2007 Laboratories: On admission white count 8.5, hemoglobin 12.4, platelet count 140,000; differential within normal limits Electrolytes notable for sodium of 131, BUN 19, creatinine 1.30. Labs on 01/13/18 - white count 6.1, hemoglobin 11.5, hematocrit 34.8, platelet count 119,000; differential remains within normal limits Electrolytes notable for sodium improving to 134, bicarbonate 20, BUN 19, creatinine 1.03. Urinalysis was notable for a pH of 5.5, protein 100, 5-30 red cells per high-powered field 0-3 white cells per high-powered field. Lactic acid on presentation to the emergency department 2.8- this was rapidly corrected with IV fluids and has remained within normal limits CT: Moderate diffuse hepatic hypodensity consistent with hepatic steatosis; splenomegaly with spleen measuring approximately 16.9 cm Large anterior abdominal wall hernia containing the majority of the colon as well as the majority of small bowel loops. No obstruction noted. CT findings corroborate the clinical findings of markedly abnormal anterior abdominal wall with loss of domain. Impression: Morbidly obese 52-year-old male with multiple significant medical comorbidities and a long-standing ventral incisional hernia with a nonhealing wound. The complexity and size of the ventral incisional hernia is beyond my scope of practice to address Lengthy discussion / face to face with the patient was completed during this encounter. Patient relates being evaluated [facility] as well as [facility], [facility] and several other facilities with the assessment that the patient is non operable. Recommendations for evaluation at [facility] were also made but not completed by the patient I have very little to offer this unfortunate patient. I encouraged the patient to consider evaluation at the [facility]. Past Med Surg Social Fam HX - Past Medical History Medical history: CHF, COPD, coronary artery disease, CVA, diabetes, hyperlipidemia, hypertension, myocardial infarction, peripheral artery disease, other Additional medical history: CVA-2017 Psychiatric history: anxiety - Past Surgical History Surgical History: appendectomy, cholecystectomy, herniorrhaphy (x2) Additional surgical history: Bowel resection/ perforated repair August 1996. August 1997 hernia repair. May 2007 mesh and hernia repair - Social History Smoking Status: Current every day smoker Smokeless Tobacco Status: No Alcohol use: none Drug use: none - Family History Mother Living Status: Hx Family Cardiac Disorders: Yes (heart disease) Hx Family Genitourinary Disorders: Yes (renal disease) Father Living Status: Still Living Hx Family Cardiac Disorders: Yes (valve replacement, heart disease) Hx Family Respiratory Disorders: No Hx Family Cancer: No Hx Family GI Disorders: No Hx Family Genitourinary Disorders: No Hx Family Endocrine Disorder: Yes (DM) Hx Family Musculoskeletal Disorders: No Hx Family Neuromuscular Disorders: No Hx Family Neurologic Disorders: No Hx Family HEENT Disorders: No Hx Family Autoimmune Disorders: No Hx Family Reproductive Disorders: No Hx Family Psychosocial Disorders: No Hx Family Medical Disorders: No Medications and Allergies Aspirin 325 mg PO DAILY 07/22/17 [History] Buspirone HCl [Buspar] 30 mg PO BID PRN 07/22/17 [History] Docusate Sodium [Stool Softener] 100 mg PO DAILY 07/22/17 [History] FLUoxetine HCl [Sarafem] 60 mg PO DAILY 07/22/17 [History] Furosemide [Lasix] 20 mg PO DAILY 07/22/17 [History] Insulin ASPART [NovoLOG] 0 unit SQ TIDWM 07/22/17 [History] Loratadine [Allergy Relief] 10 mg PO DAILY 07/22/17 [History] Losartan [Cozaar] 100 mg PO DAILY 07/22/17 [History] Omeprazole [PriLOSEC] 40 mg PO DAILY 07/22/17 [History] Simvastatin [Zocor] 20 mg PO HS 07/22/17 [History] Zolpidem [Ambien] 10 mg PO HS 07/22/17 [History] lamoTRIgine [Lamotrigine] 100 mg PO DAILY 07/22/17 [History] metFORMIN [Glucophage] 1,000 mg PO BIDWM 07/22/17 [History] Fluticasone/Vilanterol [Breo Ellipta 200-25 Mcg INH] 2 puff IH DAILY 12/22/17 [History] Insulin Glargine,Hum.rec.anlog [Basaglar Kwikpen U-100] 40 unit SQ HS 12/22/17 [History] Pregabalin [Lyrica] 150 mg PO TID 12/22/17 [History] amLODIPine [Norvasc] 10 mg PO DAILY #30 tablet 12/24/17 [Rx] cloNIDine HCl [Clonidine HCl] 0.2 mg PO BID #60 tablet 12/24/17 [Rx] Diclofenac Sodium [Voltaren] 75 mg PO BID 01/12/18 [History] Potassium Chloride [Klor-Con 10] 10 meq PO BID 01/12/18 [History] rOPINIRole [Requip] 1 mg PO HS 01/12/18 [History] Allergy/AdvReac Type Severity Reaction Status Date / Time promethazine [From Phenergan] Allergy Agitated Verified 01/12/18 16:39 plastic tape AdvReac Blister Uncoded 07/22/17 13:41 Review of Systems All systems PM: The remainder of the systems were reviewed and are negative General Surgery Exam Initial Vital Signs Temp Pulse Resp BP Pulse Ox 102.8 F H 91 22 162/76 98 01/12/18 16:37 01/12/18 16:37 01/12/18 16:37 01/12/18 16:37 01/12/18 16:37 Exam Initial Vital Signs Temp Pulse Resp BP Pulse Ox 102.8 F H 91 22 162/76 98 01/12/18 16:37 01/12/18 16:37 01/12/18 16:37 01/12/18 16:37 01/12/18 16:37 Results - Labs 01/13/18 04:09 01/13/18 04:09 Abnormal lab results RBC 4.10 M/mcL (4.19-5.50) L 01/13/18 04:09 Hgb 11.5 g/dL (12.9-16.9) L 01/13/18 04:09 Hct 34.8 % (37.5-50.1) L 01/13/18 04:09 RDW 15.6 % (11.5-14.5) H 01/13/18 04:09 Plt Count 119 K/mcL (140-400) L 01/13/18 04:09 PT 15.2 Seconds (9.4-12.1) H 01/12/18 17:25 Sodium 134 mEq/L (136-145) L 01/13/18 04:09 Carbon Dioxide 20 mEq/L (23-29) L 01/13/18 04:09 Glucose 172 mg/dL (70-105) H 01/13/18 04:09 POC Glucose 189 mg/dL (70-99) H 01/13/18 16:01 Calcium 8.4 mg/dL (8.6-10.3) L 01/13/18 04:09 Phosphorus 2.1 mg/dL (2.7-4.5) L 01/12/18 17:01 Serum Total Protein 6.3 g/dL (6.4-8.9) L 01/13/18 04:09 Urine Protein 100 mg/dL (Neg-Trace) H 01/12/18 18:35 Urine Blood Moderate (Negative) H 01/12/18 18:35 Urine Microscopic RBC 15-30 per hpf (0-3) H 01/12/18 18:35 Ur Squamous Epith Cells Many per lpf (None-Few) H 01/12/18 18:35 Diabetes panel 01/13/18 Range/Units 04:09 Sodium 134 L (136-145) mEq/L Potassium 3.6 (3.5-5.1) mEq/L Chloride 107 (98-107) mEq/L Carbon Dioxide 20 L (23-29) mEq/L BUN 16 (6-20) mg/dL Creatinine 1.03 (0.70-1.30) mg/dL Glucose 172 H (70-105) mg/dL Calcium 8.4 L (8.6-10.3) mg/dL AST 19 (13-39) Units/L ALT 13 (7-52) Units/L Alkaline Phosphatase 54 (34-104) Units/L Albumin 3.5 (3.5-5.7) g/dL Calcium panel 01/13/18 Range/Units 04:09 Calcium 8.4 L (8.6-10.3) mg/dL Albumin 3.5 (3.5-5.7) g/dL Pituitary panel 01/13/18 Range/Units 04:09 Sodium 134 L (136-145) mEq/L Potassium 3.6 (3.5-5.1) mEq/L Chloride 107 (98-107) mEq/L Carbon Dioxide 20 L (23-29) mEq/L BUN 16 (6-20) mg/dL Creatinine 1.03 (0.70-1.30) mg/dL Glucose 172 H (70-105) mg/dL Calcium 8.4 L (8.6-10.3) mg/dL Adrenal panel 01/13/18 Range/Units 04:09 Sodium 134 L (136-145) mEq/L Potassium 3.6 (3.5-5.1) mEq/L Chloride 107 (98-107) mEq/L Carbon Dioxide 20 L (23-29) mEq/L BUN 16 (6-20) mg/dL Creatinine 1.03 (0.70-1.30) mg/dL Glucose 172 H (70-105) mg/dL Calcium 8.4 L (8.6-10.3) mg/dL Total Bilirubin 0.4 (0.3-1.0) mg/dL AST 19 (13-39) Units/L ALT 13 (7-52) Units/L Alkaline Phosphatase 54 (34-104) Units/L Albumin 3.5 (3.5-5.7) g/dL All other labs normal. Consult Discharge Plan - Plan Referrals: Dana Rivera, ASSISTANT OPERATOR [Primary Care Provider] -
--- NOTE | 2018-01-13 21:03 | Electrocardiograph Report ---
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
[2018-01-13] MEDS: lamoTRIgine 100 MG TABLET PO SCH (21:05)
[2018-01-13] MEDS: rOPINIRole 1 MG TABLET PO SCH (21:05)
[2018-01-14] MEDS: Piperacillin/Tazobactam 3.375 GM in 0.9 % Sodium Chloride Mini Bag 100 ML IVPB SCH ×4 (00:05→23:57)
[2018-01-14] MEDS: Ibuprofen 800 MG TABLET PO PRN ×3 (03:53→23:57)
[2018-01-14 05:23] LABS: Basophils % 0.7 %; Eosinophils # 0.4 K/mcL (0.0-0.6); Eosinophils % 6.4 %; Hematocrit 37.5 % (37.5-50.1); Immature Granulocytes % 0.4 % (0-4); Lymphocytes # 1.1 K/mcL (0.6-4.6); Mean Corpuscular Hemoglobin 27.4 pg (28.0-33.3); Mean Corpuscular Volume 85.6 fL (83.0-100.0); Mean Platelet Volume 10.5 fL (9.4-12.4); Monocytes # 0.5 K/mcL (0.0-1.3); Monocytes % 9.6 %; Neutrophils # 3.5 K/mcL (1.6-8.9); Platelet Count 116 K/mcL (140-400); Red Blood Count 4.38 M/mcL (4.19-5.50); Red Cell Distribution Width 15.4 % (11.5-14.5); Segmented Neutrophils % 62.9 %
[2018-01-14 05:41] LABS: BUN/Creatinine Ratio 15 (6-26); Blood Urea Nitrogen 12 mg/dL (6-20); Calcium 8.5 mg/dL (8.6-10.3); Carbon Dioxide 21 mEq/L (23-29); Chloride 105 mEq/L (98-107); Glucose 179 mg/dL (70-105); Magnesium 1.9 mg/dL (1.6-2.6); Osmolality,Calculated 282 (280-300); Phosphorous 2.6 mg/dL (2.7-4.5); Sodium 134 mEq/L (136-145); eGFR For Non-African Americans > 60 (> 60)
[2018-01-14] MEDS: Insulin LISPRO 300 UNITS/3 ML VIAL SQ SCH ×4 (08:00→22:04)
[2018-01-14] MEDS: Pregabalin 75 MG CAPSULE PO SCH ×3 (10:14→22:02)
[2018-01-14] MEDS: Loratadine 10 MG TABLET PO SCH (10:15)
[2018-01-14] MEDS: Aspirin 325 MG TABLET PO SCH (10:15)
[2018-01-14] MEDS: FLUoxetine 20 MG CAPSULE PO SCH (10:16)
[2018-01-14] MEDS: cloNIDine HCl 0.1 MG TABLET PO SCH (10:17)
[2018-01-14] MEDS: Furosemide 20 MG TABLET PO SCH (10:17)
--- NOTE | 2018-01-14 11:44 | Internal Med Progress Note ---
Hospitalist Progress Note - Encounter Date of Encounter: 01/14/18 Time of Encounter: 11:41 - Subjective Interval History: Patient seen and evaluated at bedside. Reports feeling better, less abdominal pain. The erythema and tenderness in the ant abdominal wall has significantly decreased. Denies nausea, vomiting or abdominal pain. Nystatin diarrhea or loose stool. Code status discussed with the patient, reports he would like to be resuscitated but not intubated. - Exam Vitals: Temp Pulse Resp BP Pulse Ox 97.8 F 54 17 129/84 97 01/14/18 07:16 01/14/18 07:16 01/14/18 03:59 01/14/18 07:16 01/14/18 07:16 Exam: Vitals: Reviewed General: Morbidly obese. In mild distress due to abdominal discomfort. Skin: Warm and supple. HEENT: Moist mucous membranes. No conjunctivae pallor. Neck: No lymphadenopathy. No JVD. No carotid bruits. No palpable thyroid. Chest: Good air entry bilaterally, clear to auscultation bilaterally, no wheezing rhonchi Endy crackles. Heart: RRR, Normal S1 & S2; rhythmic. No rubs or murmurs. Abdomen: Obese, arkedly protuberant, with significant asymmetry with multiple large ventral hernias - the largest, most prominent is left of midline. Extremities: (No edema. No calf tenderness. Normal distal pulses. Neurological: Awake, alert and oriented to person, place and time. No focal deficits. Psych: Affect appropriate. - Assessment and Plan (1) Cellulitis Current Visit: Yes Status: Acute Assessment and Plan: Cellulitis of the anterior abdominal wall. Improved, decreased erythema, edema and tenderness. Plan Follow final blood culture report Continue Pipperacillin/tazobactam 3.375mg/IB Q8HRs On vancomycin 250mg/IV BID Vanco Trough Pain control with tramadol 50mg/PO daily. (2) Nonhealing surgical wound Current Visit: No Status: Chronic Assessment and Plan: Wound care consulted recommended: continue to cleanse with CHG soap, but will switch to calcium alginate with silver (CSS-Maxorb AG) daily surgery consulted, recommended to transfer patient to [facility]. Patient refused. (3) Hypertension Current Visit: No Status: Chronic Assessment and Plan: Blood pressure is well controlled. Patient is on clonidine 0.2 mg by mouth 3 times a day, losartan 100 mg by mouth daily and furosemide 20 mg by mouth daily. (4) Hyperlipidemia Current Visit: No Status: Chronic Assessment and Plan: Continue simvastatin 20 mg by mouth daily (5) Diabetes mellitus Current Visit: No Status: Chronic Assessment and Plan: Blood sugar well controlled. Plan: Carb controlled diet continue Lispro high dose sliding scale ac will add low dose levemir 5 units HS. (6) COPD (chronic obstructive pulmonary disease) Current Visit: No Status: Chronic Assessment and Plan: Chest is clear to auscultation. Plan: Continue Duonebs Q4RT PRN (7) Hypophosphatemia Current Visit: Yes Status: Acute Assessment and Plan: will replace electrolyte (8) Elevated INR Current Visit: Yes Status: Acute (9) Hernia Current Visit: Yes Status: Chronic Assessment and Plan: Large ventral hernia. Surgery consulted recommended the patient to be evaluated at the [facility] Talk to the patient about transferring to [facility] for evaluation but the patient refused. Patient stated that "it is very likely they won't anything else to offer me". DVT Prophylaxis: We will start heparin 5000 units subcutaneous twice a day - Summary of Assessment and Plan Summary of Assessment and Plan: Patient to remain in the hospital for at least 24 more hours to continue IV antibiotic coverage. Pending blood cultures result. - Time Spent with Patient Total time spent is greater than 50% in coordination of care (as documented) at patient's floor/unit and/or counseling patient: Greater than 35 minutes (38) Plan of Care Discussed with: patient (And the nurse.) Internal Medicine: Result - Labs CBC & Chem 7: 01/14/18 04:27 01/14/18 04:27 Labs: Short CBC 01/14/18 Range/Units 04:27 WBC 5.5 (4.3-11.1) K/mcL Hgb 12.0 L (12.9-16.9) g/dL Hct 37.5 (37.5-50.1) % Plt Count 116 L (140-400) K/mcL Neutrophils # 3.5 (1.6-8.9) K/mcL BMP 01/14/18 04:27 Sodium 134 L Potassium 4.0 Chloride 105 Carbon Dioxide 21 L BUN 12 Creatinine 0.79 Glucose 179 H Calcium 8.5 L - ABG Interpretation ABG results: PT/INR, D-dimer PT 15.2 Seconds (9.4-12.1) H 01/12/18 17:25 Consult Discharge Plan - Plan Referrals: Dana Rivera, WIRE TWISTING MACHINE OPERATOR [Primary Care Provider] - (1) Cellulitis Qualifiers: Site of cellulitis: other site Qualified Code(s): L03.818 - Cellulitis of other sites (2) Nonhealing surgical wound Qualifiers: Encounter type: initial encounter Qualified Code(s): T81.89XA - Other complications of procedures, not elsewhere classified, initial encounter (3) Hypertension Qualifiers: Hypertension type: essential hypertension Qualified Code(s): I10 - Essential (primary) hypertension (4) Hyperlipidemia Qualifiers: Hyperlipidemia type: unspecified Qualified Code(s): E78.5 - Hyperlipidemia, unspecified (5) Diabetes mellitus Qualifiers: Diabetes mellitus type: type 2 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
[2018-01-14] MEDS ORDERED: Aminoglycoside Consult 1 EACH MC ONE (13:46)
--- NOTE | 2018-01-14 19:30 | General Surgery Progress Note ---
Date of Encounter: 01/14/18 Time of Encounter: 19:26 Subjective Patient reports: no new complaints Narrative: General Surgery - Patient seated at bedside, voicing no new complaints; appears to be in no acute distress No change in overall status. CT abdomen and pelvis was reviewed with [facility] - the radiologic findings corroborate the clinical findings of loss of domain. Per patient history of 10 years duration of this particular problem - there is sufficient retraction of the fascial layers with accompanying attenuation to suggest the patient is no longer surgically repairable. The patient reveals that he has been a patient of the wound care clinic/Dr. Villdea Recommendation: At the time of discharge; posthospitalization follow-up at the wound care clinic should be arranged. Objective Vital Signs - Last 8 Hours Temp Pulse Resp BP Pulse Ox 01/14/18 14:30 96.4 F L 53 16 133/69 96 01/14/18 11:45 97.6 F 54 19 128/70 100 Intake and Output 01/14/18 01/14/18 01/14/18 07:59 15:59 23:59 Intake Total 300 / 300 1070 / 1070 240 / 240 Output Total 700 / 700 Balance -400 / -400 1070 / 1070 240 / 240 Intake: IV Fluids 100 / 100 350 / 350 Zosyn 3.375 GM In 0.9 % Sodium 100 / 100 100 / 100 Chloride (Mini-Bag +) 100 ML @ 25 mls/hr IVPB Q8HR [facility] Rx#: [id number] Vancocin 1,500 MG In 0.9 % 250 / 250 Sodium Chloride 250 ML @ 166.67 mls/hr IVPB Q12H KIMBERLY Rx#: [id number] Oral 200 / 200 720 / 720 240 / 240 Output: Urine 700 / 700 Other: Meal Lunch Dinner Percent of Meal Consumed 100% 100% Weight 148 kg Blood Glucose* 155 222 199 Patient Weight 01/14/18 23:59 Weight 148 kg - Labs 01/14/18 04:27 01/14/18 04:27 Diabetes panel 01/14/18 Range/Units 04:27 Sodium 134 L (136-145) mEq/L Potassium 4.0 (3.5-5.1) mEq/L Chloride 105 (98-107) mEq/L Carbon Dioxide 21 L (23-29) mEq/L BUN 12 (6-20) mg/dL Creatinine 0.79 (0.70-1.30) mg/dL Glucose 179 H (70-105) mg/dL Calcium 8.5 L (8.6-10.3) mg/dL Calcium panel 01/14/18 Range/Units 04:27 Calcium 8.5 L (8.6-10.3) mg/dL Phosphorus 2.6 L (2.7-4.5) mg/dL Pituitary panel 01/14/18 Range/Units 04:27 Sodium 134 L (136-145) mEq/L Potassium 4.0 (3.5-5.1) mEq/L Chloride 105 (98-107) mEq/L Carbon Dioxide 21 L (23-29) mEq/L BUN 12 (6-20) mg/dL Creatinine 0.79 (0.70-1.30) mg/dL Glucose 179 H (70-105) mg/dL Calcium 8.5 L (8.6-10.3) mg/dL Adrenal panel 01/14/18 Range/Units 04:27 Sodium 134 L (136-145) mEq/L Potassium 4.0 (3.5-5.1) mEq/L Chloride 105 (98-107) mEq/L Carbon Dioxide 21 L (23-29) mEq/L BUN 12 (6-20) mg/dL Creatinine 0.79 (0.70-1.30) mg/dL Glucose 179 H (70-105) mg/dL Calcium 8.5 L (8.6-10.3) mg/dL Consult Discharge Plan - Plan Referrals: Dana Rivera, PANCHO [Primary Care Provider] -
[2018-01-14] MEDS ORDERED: Insulin DETEMIR 100 UNIT/ML X5UNITS SQ SCH (21:00)
[2018-01-14] MEDS: lamoTRIgine 100 MG TABLET PO SCH (22:03)
[2018-01-14] MEDS: rOPINIRole 1 MG TABLET PO SCH (22:03)
[2018-01-14] MEDS: *HR* Heparin 5,000 UNIT/ML VIAL SQ SCH (22:04)
--- NOTE | 2018-01-14 22:24 | Event Note ---
Date of Encounter: 01/14/18 Time of Encounter: 20:29 Notified by nurse of patient complaining of chest pain. EKG showed sinus [place]. Went to patient bedside, states pain is almost completely resolved at this time without intervention. Is still having intermittent neck pain, states this is chronic issue. Troponin pending.
[2018-01-15] MEDS: cloNIDine HCl 0.1 MG TABLET PO SCH ×2 (03:01→09:10)
[2018-01-15] MEDS: traMADol 50 MG TABLET PO PRN (03:44)
[2018-01-15 04:00] LABS: BUN/Creatinine Ratio 17 (6-26); Blood Urea Nitrogen 14 mg/dL (6-20); Carbon Dioxide 21 mEq/L (23-29); Chloride 108 mEq/L (98-107); Glucose 161 mg/dL (70-105); Magnesium 1.8 mg/dL (1.6-2.6); Osmolality,Calculated 288 (280-300); Potassium 5.2 mEq/L (3.5-5.1); Sodium 137 mEq/L (136-145); eGFR For Non-African Americans > 60 (> 60)
[2018-01-15] MEDS: *HR* Heparin 5,000 UNIT/ML VIAL SQ SCH (05:37)
--- NOTE | 2018-01-15 08:45 | Discharge Summary ---
- NOTES TO OUTPATIENT PROVIDER Notes to Outpatient Provider: Recommended to follow up with the [facility]. Orders not resulted at time of discharge: Pending orders 01/12/18 17:01 Culture,Blood [BC] Stat 01/14/18 20:29 EKG [ECG 12 lead ECG] [ECG] Stat 01/15/18 12:00 BMP [Basic Metabolic Panel] Routine Date of Encounter: 01/15/18 Time of Encounter: 08:40 - Discharge Diagnosis (1) Sepsis Priority: Primary Status: Resolved Assessment and Plan: due to cellulitis of the anterior abdominal wall. Qualifiers: Sepsis type: sepsis due to unspecified organism Qualified Code(s): A41.9 - Sepsis, unspecified organism (2) Cellulitis Priority: Primary Status: Resolved Qualifiers: Site of cellulitis: other site Qualified Code(s): L03.818 - Cellulitis of other sites (3) Nonhealing surgical wound Priority: Secondary Status: Chronic Qualifiers: Encounter type: initial encounter Qualified Code(s): T81.89XA - Other complications of procedures, not elsewhere classified, initial encounter (4) Hypertension Priority: Secondary Status: Chronic Qualifiers: Hypertension type: essential hypertension Qualified Code(s): I10 - Essential (primary) hypertension (5) Hyperlipidemia Priority: Secondary Status: Chronic Qualifiers: Hyperlipidemia type: unspecified Qualified Code(s): E78.5 - Hyperlipidemia, unspecified (6) Diabetes mellitus Priority: Secondary Status: Chronic Qualifiers: Diabetes mellitus type: type 2 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 Jimenez is a 52 year old male COPD, CAD, TIA, diabetes, hyperlipidemia, hypertension, peripheral artery disease, and a prior GA. He also has a large abdominal wall hernia secondary to failed wound closure after surgery. He presented to the ED for evaluation of fever and body aches of a day duration. Also reported a small open wound overlying his abdominal hernia and increased redness of the surrounding skin. In the ED patient found to be febrile with temp of 102.8. Patient admitted to the hospital due to sepsis secondary to cellulitis of the abdominal wall. Patient managed with broad spectrum antibiotics. Blood cultures: no growth. A CT abd/pelvis done: significant for a large anterior abdominal wall hernia containing majority of the small bowel and colon; however, no signs of small bowel obstruction or strangulation were found. Moderate diffuse hepatic steatosis and nonspecific hepatosplenomegaly were also noted. Surgery consulted and recommended the patient to follow up at the [facility] for further evaluation. Patient acute symptoms resolved, afebrile for >72 hours, normotensive. the erythema and tenderness on the abdominal wall resolved. Patient is hemodynamically stable to discharged on PO antibiotics to complete treatment course. Recommended to follow with the [facility] for evaluation of the ventral hernia. - Time Spent with Patient Total time spent providing and/or coordinating discharge services: Greater than 30 minutes (36) - Discharge Medications Prescriptions: Doxycycline 100 mg PO BID 5 Days #10 capsule Home Medications: Aspirin 325 mg PO DAILY 07/22/17 [History] Buspirone HCl [Buspar] 30 mg PO BID PRN 07/22/17 [History] Docusate Sodium [Stool Softener] 100 mg PO DAILY 07/22/17 [History] FLUoxetine HCl [Sarafem] 60 mg PO DAILY 07/22/17 [History] Furosemide [Lasix] 20 mg PO DAILY 07/22/17 [History] Insulin ASPART [NovoLOG] 0 unit SQ TIDWM 07/22/17 [History] Loratadine [Allergy Relief] 10 mg PO DAILY 07/22/17 [History] Losartan [Cozaar] 100 mg PO DAILY 07/22/17 [History] Omeprazole [PriLOSEC] 40 mg PO DAILY 07/22/17 [History] Simvastatin [Zocor] 20 mg PO HS 07/22/17 [History] Zolpidem [Ambien] 10 mg PO HS 07/22/17 [History] lamoTRIgine [Lamotrigine] 100 mg PO DAILY 07/22/17 [History] metFORMIN [Glucophage] 1,000 mg PO BIDWM 07/22/17 [History] Fluticasone/Vilanterol [Breo Ellipta 200-25 Mcg INH] 2 puff IH DAILY 12/22/17 [History] Insulin Glargine,Hum.rec.anlog [Basaglar Kwikpen U-100] 40 unit SQ HS 12/22/17 [History] Pregabalin [Lyrica] 150 mg PO TID 12/22/17 [History] amLODIPine [Norvasc] 10 mg PO DAILY #30 tablet 12/24/17 [Rx] cloNIDine HCl [Clonidine HCl] 0.2 mg PO BID #60 tablet 12/24/17 [Rx] Diclofenac Sodium [Voltaren] 75 mg PO BID 01/12/18 [History] Potassium Chloride [Klor-Con 10] 10 meq PO BID 01/12/18 [History] rOPINIRole [Requip] 1 mg PO HS 01/12/18 [History] Doxycycline 100 mg PO BID 5 Days #10 capsule 01/15/18 [Rx] Allergies/Adverse Reactions: Allergy/AdvReac Type Severity Reaction Status Date / Time promethazine [From Phenergan] Allergy Agitated Verified 01/12/18 16:39 plastic tape AdvReac Blister Uncoded 07/22/17 13:41 Date of admission: 01/12/18 22:29 Primary care physician: Dana iRvera CNP Consults: 01/12/18 21:51 Consult to Surgery [CONS] Stat Consulting Provider: Андрей Tucker Reason for Consult: hernia Time Notified: 21:52 Call Completed: Yes 01/13/18 06:39 Consult to Software Controls Engineer [CONS] Routine Reason for SW Consult: Patient inquiring about possible financial assistance with transportation to [facility] for future abdominal closure (only place that will do the surgery) Consult to Wound Care [CONS] Routine Reason for Consult: Abdominal wound Time Notified: 06:41 Call Completed: No - Constitutional Vitals: Temp Pulse Resp BP Pulse Ox 97.5 F L 53 16 149/91 95 01/15/18 07:18 01/15/18 07:18 01/15/18 07:18 01/15/18 07:18 01/15/18 07:18 Exam: Vitals: Reviewed General: Morbidly obese. No acute distress Skin: Warm and supple. HEENT: Moist mucous membranes. No conjunctivae pallor. Neck: No lymphadenopathy. No JVD. No carotid bruits. No palpable thyroid. Chest: Good air entry bilaterally, clear to auscultation bilaterally, no wheezing rhonchi Endy crackles. Heart: RRR, Normal S1 & S2; rhythmic. No rubs or murmurs. Abdomen: Obese, arkedly protuberant, with significant asymmetry with multiple large ventral hernias - the largest, most prominent is left of midline. No erythema, warmth or tenderness Extremities: No edema. Normal distal pulses. Neurological: Awake, alert and oriented to person, place and time. No focal deficits. CN II-XII intact. Psych: Affect appropriate. - Patient Status Disposition: Home, Self-Care Condition: Good Functional capacity at discharge: independent ambulation Overall status at discharge: patient is progressing back to baseline - Discharge Instructions Follow Up With: Dana Rivera L TACKER [Primary Care Provider] - - Diet and Activity Activity: resume usual activities as tolerated Diet: advance to your usual diet, low salt diet
[2018-01-15] MEDS ORDERED: Doxycycline 100 MG CAPSULE PO SCH (09:00)
[2018-01-15] MEDS: Aspirin 325 MG TABLET PO SCH (09:08)
[2018-01-15] MEDS: FLUoxetine 20 MG CAPSULE PO SCH (09:10)
[2018-01-15] MEDS: Pregabalin 75 MG CAPSULE PO SCH (09:10)
[2018-01-15] MEDS: Furosemide 20 MG TABLET PO SCH (09:10)
[2018-01-15] MEDS: Loratadine 10 MG TABLET PO SCH (09:10)
[2018-01-15] MEDS: Insulin LISPRO 300 UNITS/3 ML VIAL SQ SCH (09:15)
[2018-01-15 11:35] VITALS: BP 146/84
[2018-01-15 13:17] LABS: BUN/Creatinine Ratio 14 (6-26); Blood Urea Nitrogen 13 mg/dL (6-20); Calcium 9.1 mg/dL (8.6-10.3); Carbon Dioxide 26 mEq/L (23-29); Chloride 101 mEq/L (98-107); Glucose 192 mg/dL (70-105); Osmolality,Calculated 285 (280-300); Potassium 4.2 mEq/L (3.5-5.1); Sodium 135 mEq/L (136-145); eGFR For Non-African Americans > 60 (> 60)
--- NOTE | 2018-01-17 15:29 | Electrocardiograph Report ---
[place] [id number] Test Date: 2018-01-14 Pat Name: Wiliam Jimenez Department: 111 Room: 2NE19 Gender: M Events Specialist: [id number] : 1965 Requested By: Lázaro Worley Order Number: [id number] Reading MD: Katherine Bacon Measurements Intervals [place] Rate: 58 P: 63 [place]: 198 QRS: -17 QRSD: 93 T: 11 QT: 401 QTc: 398 Interpretive Statements SINUS BRADYCARDIA Electronically Signed On 01-17-2018 15:27:35 EST by Katherine Bacon
== END 2018-01-15 13:47 | disposition home or self-care (01) ==
LOC: 2NENU 16:32 → EMEROOARM 16:32 → SUATTDRO 22:29 → 2NENU 22:34
PROVIDERS: ADMIT Pediatrics; ATTEND Internal Medicine

== ENCOUNTER 2018-02-09 17:33 | Observation (INO) ==
[2018-02-09] MEDS ORDERED: Aspirin 81 MG TAB.CHEW PO ONE (18:06)
[2018-02-09 18:21] LABS: Basophils # 0.1 K/mcL (0.0-0.2); Basophils % 0.8 %; Eosinophils # 0.6 K/mcL (0.0-0.6); Eosinophils % 8.4 %; Hematocrit 41.3 % (37.5-50.1); Hemoglobin 13.5 g/dL (12.9-16.9); Immature Granulocytes % 0.7 % (0-4); Lymphocytes # 1.8 K/mcL (0.6-4.6); Lymphocytes % 23.5 %; Mean Corpuscular HGB Conc 32.7 g/dL (31.6-35.5); Mean Corpuscular Hemoglobin 28.1 pg (28.0-33.3); Mean Corpuscular Volume 85.9 fL (83.0-100.0); Mean Platelet Volume 11.3 fL (9.4-12.4); Monocytes # 0.8 K/mcL (0.0-1.3); Monocytes % 10.7 %; Neutrophils # 4.3 K/mcL (1.6-8.9); Platelet Count 172 K/mcL (140-400); Red Blood Count 4.81 M/mcL (4.19-5.50); Red Cell Distribution Width 15.4 % (11.5-14.5); Segmented Neutrophils % 55.9 %
[2018-02-09] MEDS: Nitroglycerin 0.4 MG TAB.SUBL SL PRN ×2 (18:26→18:37)
[2018-02-09 18:39] LABS: BUN/Creatinine Ratio 14 (6-26); Blood Urea Nitrogen 15 mg/dL (6-20); Calcium 9.3 mg/dL (8.6-10.3); Carbon Dioxide 21 mEq/L (23-29); Chloride 109 mEq/L (98-107); Glucose 149 mg/dL (70-105); Osmolality,Calculated 288 (280-300); Sodium 137 mEq/L (136-145); Troponin I < 0.03 ng/mL (< 0.04); eGFR For Non-African Americans > 60 (> 60)
--- NOTE | 2018-02-09 18:40 | Emergency Department Note ---
Disposition Clinical Impression: Shortness of breath Diarrhea Qualifiers: Diarrhea type: unspecified type Qualified Code(s): R19.7 - Diarrhea, unspecified Chest pain Qualifiers: Chest pain type: unspecified Qualified Code(s): R07.9 - Chest pain, unspecified Disposition: Admitted As Inpatient Condition: Fair Referrals: Dana Rivera CNP [Primary Care Provider] - Forms: ED Satisfaction Letter, Work/School Release Time of Disposition: 19:37 General Adult HPI - General Chief complaint: ED General Medical Stated complaint: Flu like symptoms Time Seen by Provider: 02/09/18 17:36 Source: patient, family Limitations: no limitations Nursing Notes Reviewed: Yes Vital Signs Reviewed: Yes - History of Present Illness HPI Narrative: 52 yo male with extensive past medical history including diabetes, COPD, [place], hernia, presents with a week of diarrhea. He states that he has been having many episodes of watery diarrhea a day for the past week and that anything he eats or drinks goes straight through him. He noticed at 3 PM today that he got a tightness in the center of his chest that radiates up the left jaw and down the left arm. He states this feels exactly like it did when he had a heart uzair ck before. He claims that he had a heart catheter with Dr. Boyle here in December where he had one stent placed. 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 He has not taken anything for this chest pain as he came straight here. He is on home oxygen and has not had an increase in oxygen requirements. He denies fever, chills, cough, nausea, vomiting. He admits to some abdominal pain. He states that his hernia seems a little tender. He has not been around anyone sick. Pain Scale: 8 - Related Data Home Medications Medication Instructions Recorded Confirmed Aspirin 325 mg PO DAILY 07/22/17 01/12/18 Buspirone HCl [Buspar] 30 mg PO BID PRN 07/22/17 01/12/18 Docusate Sodium [Stool Softener] 100 mg PO DAILY 07/22/17 01/12/18 FLUoxetine HCl [Sarafem] 60 mg PO DAILY 07/22/17 01/12/18 Furosemide [Lasix] 20 mg PO DAILY 07/22/17 01/12/18 Insulin ASPART [NovoLOG] 0 unit SQ TIDWM 07/22/17 01/12/18 Loratadine [Allergy Relief] 10 mg PO DAILY 07/22/17 01/12/18 Losartan [Cozaar] 100 mg PO DAILY 07/22/17 01/12/18 Omeprazole [PriLOSEC] 40 mg PO DAILY 07/22/17 01/12/18 Simvastatin [Zocor] 20 mg PO HS 07/22/17 01/12/18 Zolpidem [Ambien] 10 mg PO HS 07/22/17 01/12/18 lamoTRIgine [Lamotrigine] 100 mg PO DAILY 07/22/17 01/12/18 metFORMIN [Glucophage] 1,000 mg PO BIDWM 07/22/17 01/12/18 Fluticasone/Vilanterol [Breo 2 puff IH DAILY 12/22/17 01/12/18 Ellipta 200-25 Mcg INH] Insulin Glargine,Hum.rec.anlog 40 unit SQ HS 12/22/17 01/12/18 [Basaglar Kwikpen U-100] Pregabalin [Lyrica] 150 mg PO TID 12/22/17 01/12/18 Diclofenac Sodium [Voltaren] 75 mg PO BID 01/12/18 01/12/18 Potassium Chloride [Klor-Con 10] 10 meq PO BID 01/12/18 01/12/18 rOPINIRole [Requip] 1 mg PO HS 01/12/18 01/12/18 Previous Rx's Medication Instructions Recorded amLODIPine [Norvasc] 10 mg PO DAILY #30 tablet 12/24/17 cloNIDine HCl [Clonidine HCl] 0.2 mg PO BID #60 tablet 12/24/17 Allergies Allergy/AdvReac Type Severity Reaction Status Date / Time promethazine [From Phenergan] Allergy Agitated Verified 01/12/18 16:39 plastic tape AdvReac Blister Uncoded 07/22/17 13:41 All systems ED: reviewed and negative except as stated. Review of Systems: As Per HPI Constitutional: Reports: chills, weakness. Denies: fever Cardiovascular: Reports: chest pain, dyspnea on exertion. Denies: palpitations, edema Respiratory: Reports: cough, dyspnea. Denies: wheezes Gastrointestinal: Reports: abdominal pain, diarrhea Musculoskeletal: Reports: back pain Integumentary: Denies: rash Neurological: Reports: weakness. Denies: headache, numbness, paresthesias Psychiatric: Denies: anxiety Endocrine: Reports: fatigue Hematological/Lymphatic: Denies: easy bleeding Past Medical History - Past Medical History Medical history: Reports: CHF, COPD, coronary artery disease, CVA, diabetes, hyperlipidemia, hypertension, myocardial infarction, peripheral artery disease, other Surgical history: Reports: appendectomy, cholecystectomy, herniorrhaphy (x2) Psychiatric history: Reports: anxiety - Social History Smoking Status: Current every day smoker Smokeless Tobacco Status: No Alcohol use: Reports: none Drug use: Reports: none Physical Exam - General Limitations: no limitations General appearance: alert, in no apparent distress - Head Head exam: atraumatic, normocephalic - Eye Eye exam: Present: normal appearance, PERRL, EOMI - ENT ENT exam: normal exam, mucous membranes moist - Neck Neck exam: Present: normal inspection. Absent: tenderness, lymphadenopathy - Chest Chest inspection: Present: normal inspection, symmetric chest wall rise. Absent: tenderness - Respiratory Respiratory exam: Present: wheezes - Cardiovascular Cardiovascular exam: Present: regular rate, normal rhythm - Abdominal Exam Abdominal exam: Present: soft, Non-Tender, distention, hernia (left sided large hernia, soft and reducible). Absent: guarding, rebound, rigidity - Extremities Exam Extremities exam: Present: pedal edema. Absent: tenderness, calf tenderness - Neurological Exam Neurological exam: Present: alert, oriented X3 - Psychiatric Psychiatric exam: Present: normal affect - Skin Skin exam: Present: warm, dry, intact Course Vital Signs Temperature 98.6 F 02/09/18 17:41 Pulse Rate 82 02/09/18 17:41 Respiratory Rate 22 02/09/18 17:41 Blood Pressure 154/100 02/09/18 17:41 O2 Sat by Pulse Oximetry 98 02/09/18 17:41 Temperature 98.6 F 02/09/18 17:41 Pulse Rate 72 02/09/18 18:53 Respiratory Rate 18 02/09/18 18:53 Blood Pressure 154/73 02/09/18 18:53 O2 Sat by Pulse Oximetry 97 02/09/18 18:53 Oxygen Delivery Oxygen Delivery Room Air Medical Decision Making - MDM Narrative Medical decision making narrative: Due to his history of CHF and [place] requiring cath, will do an ACS workup withlabs, CXR and EKG. Will give ASA and SL nitro for pain relief. 191 - patient's labwork unremarkable. Chest x-ray showed no acute abnormalities. EKG did not show any signs of acute ischemia. This patient's chest pain has not improved with 2 doses of nitroglycerin. He states is still 7 out of 10. Will admit for chest pain workup, hospitalist has been patient this time. Dr. Barreto has accepted the patient. - Medical Records Medical records reviewed: Yes I reviewed the patient's medical records. - Lab Data Lab results reviewed: Yes I reviewed the patient's lab results. Result diagrams: 02/09/18 17:46 02/09/18 17:46 Lab Results 02/09/18 02/09/18 02/09/18 Range/Units 17:46 17:46 17:46 WBC 7.7 (4.3-11.1) K/mcL RBC 4.81 (4.19-5.50) M/mcL Hgb 13.5 (12.9-16.9) g/dL Hct 41.3 (37.5-50.1) % MCV 85.9 (83.0-100.0) fL MCH 28.1 (28.0-33.3) pg MCHC 32.7 (31.6-35.5) g/dL RDW 15.4 H (11.5-14.5) % Plt Count 172 (140-400) K/mcL MPV 11.3 (9.4-12.4) fL Immature Gran % 0.7 (0-4) % Seg Neutrophils % 55.9 % Lymphocytes % 23.5 % Monocytes % 10.7 % Eosinophils % 8.4 % Basophils % 0.8 % Neutrophils # 4.3 (1.6-8.9) K/mcL Lymphocytes # 1.8 (0.6-4.6) K/mcL Monocytes # 0.8 (0.0-1.3) K/mcL Eosinophils # 0.6 (0.0-0.6) K/mcL Basophils # 0.1 (0.0-0.2) K/mcL Sodium 137 (136-145) mEq/L Potassium 4.0 (3.5-5.1) mEq/L Chloride 109 H (98-107) mEq/L Carbon Dioxide 21 L (23-29) mEq/L BUN 15 (6-20) mg/dL Creatinine 1.04 (0.70-1.30) mg/dL Est GFR ( Amer) > 60 (> 60) Est GFR (Non-Af Amer) > 60 (> 60) BUN/Creatinine Ratio 14 (6-26) Glucose 149 H (70-105) mg/dL Calculated Osmolality 288 (280-300) Calcium 9.3 (8.6-10.3) mg/dL Troponin I < 0.03 (< 0.04) ng/mL B-Natriuretic Peptide 24 (Less than 100) pg/mL - Radiology Data Radiology results reviewed: Yes I reviewed the patient's radiology results. - EKG Data EKG #1 EKG attestation: Yes I reviewed and interpreted this EKG. EKG results narrative: EKG done at 17:45 on 02/09/2018 Heart rate 82 bpm, MD interval 29, QRS duration, QT 371, QTC 434 Sinus rhythm without any ST segment elevations or depressions. No signs of acute ischemia. No significant changes from previous EKG dated 01/14/2018.
--- NOTE | 2018-02-09 19:16 | Emergency Department Note ---
Disposition Clinical Impression: Diarrhea, Chest pain, Shortness of breath Disposition: Admitted As Inpatient Forms: ED Satisfaction Letter, Work/School Release General Adult HPI - General Chief complaint: ED General Medical Stated complaint: Flu like symptoms Time Seen by Provider: 02/09/18 17:36 Source: patient, family Limitations: no limitations - History of Present Illness Pain Scale: 8 - Related Data Home Medications Medication Instructions Recorded Confirmed Aspirin 325 mg PO DAILY 07/22/17 01/12/18 Buspirone HCl [Buspar] 30 mg PO BID PRN 07/22/17 01/12/18 Docusate Sodium [Stool Softener] 100 mg PO DAILY 07/22/17 01/12/18 FLUoxetine HCl [Sarafem] 60 mg PO DAILY 07/22/17 01/12/18 Furosemide [Lasix] 20 mg PO DAILY 07/22/17 01/12/18 Insulin ASPART [NovoLOG] 0 unit SQ TIDWM 07/22/17 01/12/18 Loratadine [Allergy Relief] 10 mg PO DAILY 07/22/17 01/12/18 Losartan [Cozaar] 100 mg PO DAILY 07/22/17 01/12/18 Omeprazole [PriLOSEC] 40 mg PO DAILY 07/22/17 01/12/18 Simvastatin [Zocor] 20 mg PO HS 07/22/17 01/12/18 Zolpidem [Ambien] 10 mg PO HS 07/22/17 01/12/18 lamoTRIgine [Lamotrigine] 100 mg PO DAILY 07/22/17 01/12/18 metFORMIN [Glucophage] 1,000 mg PO BIDWM 07/22/17 01/12/18 Fluticasone/Vilanterol [Breo 2 puff IH DAILY 12/22/17 01/12/18 Ellipta 200-25 Mcg INH] Insulin Glargine,Hum.rec.anlog 40 unit SQ HS 12/22/17 01/12/18 [Basaglar Kwikpen U-100] Pregabalin [Lyrica] 150 mg PO TID 12/22/17 01/12/18 Diclofenac Sodium [Voltaren] 75 mg PO BID 01/12/18 01/12/18 Potassium Chloride [Klor-Con 10] 10 meq PO BID 01/12/18 01/12/18 rOPINIRole [Requip] 1 mg PO HS 01/12/18 01/12/18 Previous Rx's Medication Instructions Recorded amLODIPine [Norvasc] 10 mg PO DAILY #30 tablet 12/24/17 cloNIDine HCl [Clonidine HCl] 0.2 mg PO BID #60 tablet 12/24/17 Allergies Allergy/AdvReac Type Severity Reaction Status Date / Time promethazine [From Phenergan] Allergy Agitated Verified 01/12/18 16:39 plastic tape AdvReac Blister Uncoded 07/22/17 13:41 Constitutional: Reports: chills, weakness. Denies: fever Cardiovascular: Reports: chest pain, dyspnea on exertion. Denies: palpitations, edema Respiratory: Reports: cough, dyspnea. Denies: wheezes Gastrointestinal: Reports: abdominal pain, diarrhea Musculoskeletal: Reports: back pain Integumentary: Denies: rash Neurological: Reports: weakness. Denies: headache, numbness, paresthesias Psychiatric: Denies: anxiety Endocrine: Reports: fatigue Hematological/Lymphatic: Denies: easy bleeding Past Medical History - Past Medical History Medical history: Reports: CHF, COPD, coronary artery disease, CVA, diabetes, hyperlipidemia, hypertension, myocardial infarction, peripheral artery disease, other Surgical history: Reports: appendectomy, cholecystectomy, herniorrhaphy (x2) Psychiatric history: Reports: anxiety - Social History Smoking Status: Current every day smoker Smokeless Tobacco Status: No Alcohol use: Reports: none Drug use: Reports: none Physical Exam - General Limitations: no limitations General appearance: alert, in no apparent distress Course Vital Signs Temperature 98.6 F 02/09/18 17:41 Pulse Rate 82 02/09/18 17:41 Respiratory Rate 22 02/09/18 17:41 Blood Pressure 154/100 02/09/18 17:41 O2 Sat by Pulse Oximetry 98 02/09/18 17:41 Temperature 98.6 F 02/09/18 17:41 Pulse Rate 72 02/09/18 18:53 Respiratory Rate 18 02/09/18 18:53 Blood Pressure 154/73 02/09/18 18:53 O2 Sat by Pulse Oximetry 97 02/09/18 18:53 Oxygen Delivery Oxygen Delivery Room Air Medical Decision Making - Lab Data Result diagrams: 02/09/18 17:46 02/09/18 17:46 Lab Results 02/09/18 02/09/18 02/09/18 Range/Units 17:46 17:46 17:46 WBC 7.7 (4.3-11.1) K/mcL RBC 4.81 (4.19-5.50) M/mcL Hgb 13.5 (12.9-16.9) g/dL Hct 41.3 (37.5-50.1) % MCV 85.9 (83.0-100.0) fL MCH 28.1 (28.0-33.3) pg MCHC 32.7 (31.6-35.5) g/dL RDW 15.4 H (11.5-14.5) % Plt Count 172 (140-400) K/mcL MPV 11.3 (9.4-12.4) fL Immature Gran % 0.7 (0-4) % Seg Neutrophils % 55.9 % Lymphocytes % 23.5 % Monocytes % 10.7 % Eosinophils % 8.4 % Basophils % 0.8 % Neutrophils # 4.3 (1.6-8.9) K/mcL Lymphocytes # 1.8 (0.6-4.6) K/mcL Monocytes # 0.8 (0.0-1.3) K/mcL Eosinophils # 0.6 (0.0-0.6) K/mcL Basophils # 0.1 (0.0-0.2) K/mcL Sodium 137 (136-145) mEq/L Potassium 4.0 (3.5-5.1) mEq/L Chloride 109 H (98-107) mEq/L Carbon Dioxide 21 L (23-29) mEq/L BUN 15 (6-20) mg/dL Creatinine 1.04 (0.70-1.30) mg/dL Est GFR ( Amer) > 60 (> 60) Est GFR (Non-Af Amer) > 60 (> 60) BUN/Creatinine Ratio 14 (6-26) Glucose 149 H (70-105) mg/dL Calculated Osmolality 288 (280-300) Calcium 9.3 (8.6-10.3) mg/dL Troponin I < 0.03 (< 0.04) ng/mL B-Natriuretic Peptide 24 (Less than 100) pg/mL Attestation Statement - Attestation Attestation: I examined this patient and my medical decision-making was reviewed with the Resident Physician. I agree with the documented findings, disposition and treatment plan as described except to the extent set forth below. 52-year-old male presented to the emergency room for multiple complaints. Patient states been having increasing chest pain and shortness of breath. He also complaining of generalized weakness as well as diarrhea. States she is going more than 10 times a day. This all started in the last week. He denies any blood in his stool. No blackness. Patient was on Bactrim and just stopped that approximately 10 days ago. States he was put on that for a stomach infection. Ever since he stopped the medication is had persistent diarrhea. We will need to send off a C. difficile antigen test. Patient needs to be admitted for further workup and evaluation. States he feels too weak to go home. Started him on IV fluids. We will check serial enzymes to rule out any ACS component. Recent heart catheter was done with a stent placement.
[2018-02-09] MEDS: 0.9 % Sodium Chloride 1,000 ML IVC SCH (19:55)
[2018-02-09] MEDS ORDERED: Dextrose Gel 15 GM/37.5 ML TUBE PO PRN ×2 (21:35)
--- NOTE | 2018-02-09 21:42 | Internal Med History&Physical ---
Date of Encounter: 02/09/18 Time of Encounter: 21:40 Internal Medicine - H&P: HPI Chief complaint: Diarrhea and chest pain Admitted From: Home Plans for Post Hospital Care: Home History of present illness: Wiliam Jimenez is a 52-year-old obese male active smoker with a history of hypertension, insulin-dependent diabetes and coronary heart disease with multiple abdominal surgical interventions leading to incisional hernias who has been admitted twice in the past 2 months with complaints of chest pain in the setting of hypertensive urgencies. During his last admission a few weeks ago a stress echo was attempted however it was aborted due to elevated blood pressure values and chest pain. An echo done showed no acute abnormalities and was advised to continue medical management and risk factor reduction. Of note, he was also treated for cellulitis of the abdominal wall. He presents now with a complaint of increasing chest pain and shortness of breath that he is now getting used to. He says the chest pain started in the car while he was on route to the hospital with the original complaint of di arrhea for 1 week. He reports going multiple times a day and that it is watery but has not noticed any jeannine blood or dark stool. He reports that during his hospitalization about 3 weeks ago he was on IV vancomycin and subsequently discharged home on TMP/SMX which she stopped taking approximately 10 days ago. In the ER workup was grossly unremarkable and is admitted for further observation. Past Med Surg Social Fam HX - Past Medical History Medical history: CHF, COPD, coronary artery disease, CVA, diabetes, hyper lipidemia, hypertension, myocardial infarction, peripheral artery disease, other Additional medical history: CVA-2017 Psychiatric history: anxiety - Past Surgical History Surgical History: appendectomy, cholecystectomy, herniorrhaphy (x2) Additional surgical history: Bowel resection/ perforated repair August 1996. August 1997 hernia repair. May 2007 mesh and hernia repair - Social History Smoking Status: Current every day smoker Smokeless Tobacco Status: No Alcohol use: none Drug use: none - Family History Mother Living Status: Hx Family Cardiac Disorders: Yes (heart disease) Father Living Status: Still Living Hx Family Cardiac Disorders: Yes (valve replacement, heart disease) Hx Family Respiratory Disorders: No Hx Family Cancer: No Hx Family GI Disorders: No Hx Family Endocrine Disorder: Yes (DM) Hx Family Neuromuscular Disorders: No Hx Family Neurologic Disorders: No Hx Family HEENT Disorders: No Hx Family Autoimmune Disorders: No Internal Medicine - H&P: Meds Aspirin 325 mg PO DAILY 07/22/17 [History] Buspirone HCl [Buspar] 30 mg PO BID PRN 07/22/17 [History] Docusate Sodium [Stool Softener] 100 mg PO DAILY 07/22/17 [History] FLUoxetine HCl [Sarafem] 60 mg PO DAILY 07/22/17 [History] Furosemide [Lasix] 20 mg PO DAILY 07/22/17 [History] Insulin ASPART [NovoLOG] 0 unit SQ TIDWM 07/22/17 [History] Loratadine [Allergy Relief] 10 mg PO DAILY 07/22/17 [History] Losartan [Cozaar] 100 mg PO DAILY 07/22/17 [History] Omeprazole [PriLOSEC] 40 mg PO DAILY 07/22/17 [History] Simvastatin [Zocor] 20 mg PO HS 07/22/17 [History] Zolpidem [Ambien] 10 mg PO HS 07/22/17 [History] lamoTRIgine [Lamotrigine] 100 mg PO DAILY 07/22/17 [History] metFORMIN [Glucophage] 1,000 mg PO BIDWM 07/22/17 [History] Fluticasone/Vilanterol [Breo Ellipta 200-25 Mcg INH] 2 puff IH DAILY 12/22/17 [History] Insulin Glargine,Hum.rec.anlog [Basaglar Kwikpen U-100] 40 unit SQ HS 12/22/17 [History] Pregabalin [Lyrica] 150 mg PO TID 12/22/17 [History] amLODIPine [Norvasc] 10 mg PO DAILY #30 tablet 12/24/17 [Rx] cloNIDine HCl [Clonidine HCl] 0.2 mg PO BID #60 tablet 12/24/17 [Rx] Diclofenac Sodium [Voltaren] 75 mg PO BID 01/12/18 [History] Potassium Chloride [Klor-Con 10] 10 meq PO BID 01/12/18 [History] rOPINIRole [Requip] 1 mg PO HS 01/12/18 [History] Allergy/AdvReac Type Severity Reaction Status Date / Time promethazine [From Phenergan] Allergy Agitated Verified 01/12/18 16:39 plastic tape AdvReac Blister Uncoded 07/22/17 13:41 All Systems PM: A 10-system review of systems was performed and is negative for pertinent findings except as documented above in the HPI. - Constitutional Vitals: Temp Pulse Resp BP Pulse Ox 98.5 F 67 16 169/75 96 02/09/18 21:15 02/09/18 21:15 02/09/18 21:15 02/09/18 21:15 02/09/18 21:15 Exam: Vitals: Reviewed General: Morbidly obese male lying in bed in no acute distress Skin: Multiple surgical incision sites noted on abdomen HEENT: Moist mucous membranes. No conjunctivae pallor. Neck: No lymphadenopathy. No JVD. No carotid bruits. No palpable thyroid. Chest: Reduced thoracic expansion with mild expiratory wheezes present. Heart: Normal S1 & S2; rhythmic. No rubs or murmurs. Abdomen: Protuberant with multiple incisional hernias noted and healing midline surgical incision scar. Extremities: No clubbing, cyanosis. 1+ lower leg edema is present. No calf tenderness. Normal distal pulses. Neurological: Awake, alert and oriented to person, place and time. No focal deficits. Psych: Affect appropriate. Internal Med - H&P Results - Labs CBC & Chem 7: 02/09/18 17:46 02/09/18 17:46 Labs: Short CBC 02/09/18 Range/Units 17:46 WBC 7.7 (4.3-11.1) K/mcL Hgb 13.5 (12.9-16.9) g/dL Hct 41.3 (37.5-50.1) % Plt Count 172 (140-400) K/mcL Neutrophils # 4.3 (1.6-8.9) K/mcL BMP 02/09/18 17:46 Sodium 137 Potassium 4.0 Chloride 109 H Carbon Dioxide 21 L BUN 15 Creatinine 1.04 Glucose 149 H Calcium 9.3 Cardiac Enzymes 02/09/18 Range/Units 17:46 Troponin I < 0.03 (< 0.04) ng/mL - Impressions ITS Impressions Chest X-Ray 02/09/18 18:03 IMPRESSION: No evidence of acute cardiopulmonary disease. D/ / Irvin Marquez MD / Irvin Marquez MD Interpreting Provider: Irvin Marquez MD - Assessment and plan (1) Chest pain Current Visit: Yes Status: Acute Assessment and plan: The patient has risk factors with already known CAD reported. It is reported that he had a LHC a year ago at [facility] with non-obstructive findings and no further intervention performed. His echo done here shows no anomalies. HE has no acute electrocardiographic or serologic signs of ischemia at this time. Taking into account the aborted stress test, it would be beneficial for him to try to undergo another one. However in the setting of his current diarrhea as well, it would be best to hold off until this is resolved. We will continue to monitor him clinically, place on telemetry and repeat another troponin in the morning. His chest pain is not new onset and unlikely for him to be having an acute PR at this time. He has been evaluated by cardiology in the past and risk factor modification has been advised but this has not been done. Qualifiers: Chest pain type: unspecified Qualified Code(s): R07.9 - Chest pain, unspecified (2) Diarrhea Current Visit: Yes Status: Acute Assessment and plan: He is at risk for C.diff given his plethora of hospitalizations and recent use of antibiotics for his abdominal wall cellulitis. It is prudent to rule this out even if more probable to be a passing gastroenteritis. If C.diff is negative and he continues to have profuse diarrhea in the coming days, a GI panel would be warranted. For now, no indication for antimicrobials. For now, will provide some fluid resuscitation for the volume losses and hold his diuretics. Qualifiers: Diarrhea type: unspecified type Qualified Code(s): R19.7 - Diarrhea, unspecified (3) Shortness of breath Current Visit: Yes Status: Acute Assessment and plan: His physical exam is notable for some expiratory wheezes consistent with his known COPD. He continues to smoke unfortunately and I have counseled him on this. Will provide nebulizer therapy as needed and continue his daily LABA/ICS. (4) CAD (coronary artery disease) Current Visit: Yes Status: Acute Assessment and plan: Continue antiplatelet and statin therapy Qualifiers: Coronary Disease-Associated Artery/Lesion type: [place] artery [place] vs. transplanted heart: [place] heart Associated angina: angina presence unspecified Qualified Code(s): I25.10 - Atherosclerotic heart disease of [place] coronary artery without angina pectoris (5) DVT prophylaxis Current Visit: Yes Status: Acute Assessment and plan: SubQ heparin ordered. (6) Diabetes mellitus Current Visit: Yes Status: Chronic Assessment and plan: Insulin resumed Qualifiers: Diabetes mellitus type: type 2 Diabetes mellitus frontend engineer insulin use: with frontend engineer use Diabetes mellitus complication status: with hyperglycemia Qualified Code(s): E11.65 - Type 2 diabetes mellitus with hyperglycemia; Z79.4 - halfway (current) use of insulin (7) Nonhealing surgical wound Current Visit: Yes Status: Chronic Assessment and plan: He should be seen by wound care and given adequate outpatient follow up. Qualifiers: Encounter type: initial encounter Qualified Code(s): T81.89XA - Other complications of procedures, not elsewhere classified, initial encounter - Time Spent With Patient Total time spent is greater than 50% in coordination of care (as documented) at patient's floor/unit and/or counseling patient: Greater than 35 minutes
[2018-02-09] MEDS ORDERED: NON-FORMULARY MEDICATION 1 EACH EACH (Insulin Glargine,Hum.Rec.Anlog [Basaglar Kwikpen U-1 SQ SCH (21:45)
[2018-02-09] MEDS ORDERED: Ipratropium/Albuterol Neb 3 ML IH PRN (21:48)
[2018-02-09] MEDS: Insulin DETEMIR 100 UNIT/ML X5UNITS SQ SCH (22:38)
[2018-02-09] MEDS: cloNIDine HCl 0.1 MG TABLET PO SCH (22:38)
[2018-02-09] MEDS: rOPINIRole 1 MG TABLET PO SCH (22:38)
[2018-02-09] MEDS: *HR* Heparin 5,000 UNIT/ML VIAL SQ SCH (22:47)
[2018-02-10] MEDS ORDERED: Menthol 9.1 MG LOZENGE PO PRN (04:33)
[2018-02-10] MEDS: *HR* Heparin 5,000 UNIT/ML VIAL SQ SCH ×3 (04:49→21:15)
[2018-02-10] MEDS: 0.9 % Sodium Chloride 1,000 ML IVC SCH (04:50)
[2018-02-10 05:39] LABS: Basophils # 0.1 K/mcL (0.0-0.2); Basophils % 1.3 %; Eosinophils # 0.6 K/mcL (0.0-0.6); Eosinophils % 10.4 %; Hematocrit 36.4 % (37.5-50.1); Immature Granulocytes % 0.6 % (0-4); Lymphocytes # 1.7 K/mcL (0.6-4.6); Lymphocytes % 31.3 %; Mean Corpuscular Hemoglobin 28.3 pg (28.0-33.3); Mean Corpuscular Volume 85.8 fL (83.0-100.0); Mean Platelet Volume 10.9 fL (9.4-12.4); Monocytes # 0.7 K/mcL (0.0-1.3); Monocytes % 12.3 %; Neutrophils # 2.3 K/mcL (1.6-8.9); Platelet Count 146 K/mcL (140-400); Red Blood Count 4.24 M/mcL (4.19-5.50); Red Cell Distribution Width 15.6 % (11.5-14.5); Segmented Neutrophils % 44.1 %
[2018-02-10 05:45] LABS: INR 1.2; Prothrombin Time 13.1 Seconds (9.4-12.1)
[2018-02-10 05:47] LABS: Activated Partial Thrombo Time 35.9 Seconds (26.0-36.0)
[2018-02-10 05:59] LABS: Troponin I < 0.03 ng/mL (< 0.04)
[2018-02-10 06:02] LABS: BUN/Creatinine Ratio 16 (6-26); Blood Urea Nitrogen 14 mg/dL (6-20); Calcium 8.8 mg/dL (8.6-10.3); Carbon Dioxide 20 mEq/L (23-29); Chloride 111 mEq/L (98-107); Glucose 168 mg/dL (70-105); Osmolality,Calculated 290 (280-300); Potassium 3.8 mEq/L (3.5-5.1); Sodium 138 mEq/L (136-145); eGFR For Non-African Americans > 60 (> 60)
[2018-02-10] MEDS: Breo Ellipta 200-25 Mcg IH SCH (08:25)
--- NOTE | 2018-02-10 09:14 | Electrocardiograph Report ---
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
[2018-02-10] MEDS: Insulin LISPRO 300 UNITS/3 ML VIAL SQ SCH ×3 (09:17→17:05)
[2018-02-10] MEDS ORDERED: Regadenoson 0.4 MG/5 ML SYRINGE IVP ONE (09:27)
[2018-02-10] MEDS: Pregabalin 75 MG CAPSULE PO SCH ×3 (12:14→21:14)
[2018-02-10] MEDS: cloNIDine HCl 0.1 MG TABLET PO SCH ×2 (12:15→21:15)
[2018-02-10] MEDS: FLUoxetine 20 MG CAPSULE PO SCH (12:15)
[2018-02-10] MEDS: Aspirin 325 MG TABLET PO SCH (12:15)
[2018-02-10] MEDS: Loratadine 10 MG TABLET PO SCH (12:15)
[2018-02-10] MEDS: lamoTRIgine 100 MG TABLET PO SCH (12:15)
[2018-02-10] MEDS: amLODIPine 5 MG TABLET PO SCH (12:24)
--- NOTE | 2018-02-10 14:22 | Internal Med Progress Note ---
Hospitalist Progress Note - Encounter Date of Encounter: 02/10/18 Time of Encounter: 13:00 - Subjective Interval History: Mr. Jimenez is a 52-year-old morbidly obese male, with a known past medical history of tobacco dependence, hypertension, insulin-dependent diabetes and coronary heart disease with multiple abdominal surgical interventions leading to incisional hernias who has been admitted twice in the past 2 months with complaints of chest pain in the setting of hypertensive urgencies, now he presented to ER complaining about sub sternal chest pain and shortness of breath. He was admitted in the hospital and placed him on teletypesetter monitor. His initial troponin was negative. Patient denied any active chest pain right now - Exam Vitals: Temp Pulse Resp BP Pulse Ox 97.5 F L 59 18 164/84 98 02/10/18 11:27 02/10/18 11:27 02/10/18 11:27 02/10/18 11:27 02/10/18 11:27 Exam: Gen: Alert, awake, Oriented to time,place and person Chest: Diminished breath sounds B/L, No wheezing, No crackles, No rales Heart: S1S2+ RRR No murmurs Abd: Soft, NT, BS +, No organomegaly, ventral hernia + Ext: No edema, pulses are palpable, No calf tenderness Neuro : Benign findings Skin: No rash. - Assessment and Plan (1) Chest pain Current Visit: Yes Status: Acute Assessment and Plan: So far negative troponin's reviewed his EKG showed normal sinus rhythm with no acute ischemic changes noticed reviewed his echocardiogram from last month preserved LVEF, no wall motion abnormalities noticed he is definitely high risk for ACS so ordered nuclear stress test which he need 2 days stress test continue aspirin, Statin and ARB not able to start him on beta bronson since his HR in low 60's (2) Nonhealing surgical wound Current Visit: Yes Status: Chronic Assessment and Plan: Need to follow up with wound care as an outpatient will continue current local wound care for now (3) Diabetes mellitus Current Visit: Yes Status: Chronic Assessment and Plan: ADA diet on insulin sliding scale long-acting insulin ordered (4) CAD (coronary artery disease) Current Visit: Yes Status: Acute Assessment and Plan: Resumed home medications (5) Diarrhea Current Visit: Yes Status: Acute Assessment and Plan: Improved (6) DVT prophylaxis Current Visit: Yes Status: Acute Assessment and Plan: SubQ heparin ordered. - Time Spent with Patient Total time spent is greater than 50% in coordination of care (as documented) at patient's floor/unit and/or counseling patient: Internal Medicine: Result - Labs CBC & Chem 7: 02/10/18 04:40 02/10/18 04:40 Labs: Short CBC 02/09/18 02/10/18 Range/Units 17:46 04:40 WBC 7.7 5.3 (4.3-11.1) K/mcL Hgb 13.5 12.0 L D (12.9-16.9) g/dL Hct 41.3 36.4 L (37.5-50.1) % Plt Count 172 146 (140-400) K/mcL Neutrophils # 4.3 2.3 (1.6-8.9) K/mcL BMP 02/09/18 02/10/18 17:46 04:40 Sodium 137 138 Potassium 4.0 3.8 Chloride 109 H 111 H Carbon Dioxide 21 L 20 L BUN 15 14 Creatinine 1.04 0.88 Glucose 149 H 168 H Calcium 9.3 8.8 Cardiac Enzymes 02/09/18 02/10/18 Range/Units 17:46 04:40 Troponin I < 0.03 < 0.03 (< 0.04) ng/mL - ABG Interpretation ABG results: PT/INR, D-dimer PT 13.1 Seconds (9.4-12.1) H 02/10/18 04:40 - Impressions Impressions Chest X-Ray 02/09/18 18:03 IMPRESSION: No evidence of acute cardiopulmonary disease. D/ / Irvin Marquez MD / Irvin Marquez MD Interpreting Provider: Irvin Marquez MD Consult Discharge Plan - Plan Referrals: Dana Rivera, BUSINESS CONTINUITY GLOBAL DIRECTOR [Primary Care Provider] - 02/16/18 1:00 pm (1) Chest pain Qualifiers: Chest pain type: unspecified Qualified Code(s): R07.9 - Chest pain, un specified (2) Nonhealing surgical wound Qualifiers: Encounter type: initial encounter Qualified Code(s): T81.89XA - Other complications of procedures, not elsewhere classified, initial encounter (3) Diabetes mellitus Qualifiers: Diabetes mellitus type: type 2 Diabetes mellitus [facility] insulin 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 transplanted heart: [place] heart Associated angina: angina presence unspecified Qualified Code(s): I25.10 - Atherosclerotic heart disease of [place] coronary artery without angina pectoris (5) Diarrhea Qualifiers: Diarrhea type: unspecified type Qualified Code(s): R19.7 - Diarrhea, unspecified
[2018-02-10] MEDS ORDERED: Insulin LISPRO 300 UNITS/3 ML VIAL SQ SCH (21:00)
[2018-02-10] MEDS: rOPINIRole 1 MG TABLET PO SCH (21:15)
[2018-02-10] MEDS: Insulin DETEMIR 100 UNIT/ML X5UNITS SQ SCH (21:15)
[2018-02-10] MEDS ORDERED: Gabapentin 300 MG CAPSULE PO ONE (22:27)
[2018-02-11] MEDS: *HR* Heparin 5,000 UNIT/ML VIAL SQ SCH (06:13)
[2018-02-11] MEDS: Insulin LISPRO 300 UNITS/3 ML VIAL SQ SCH ×2 (08:08→12:41)
[2018-02-11] MEDS: Breo Ellipta 200-25 Mcg IH SCH (08:40)
[2018-02-11] MEDS: Pregabalin 75 MG CAPSULE PO SCH (10:28)
[2018-02-11] MEDS: cloNIDine HCl 0.1 MG TABLET PO SCH (10:28)
[2018-02-11] MEDS: lamoTRIgine 100 MG TABLET PO SCH (10:28)
[2018-02-11] MEDS: FLUoxetine 20 MG CAPSULE PO SCH (10:28)
[2018-02-11] MEDS: Loratadine 10 MG TABLET PO SCH (10:28)
[2018-02-11] MEDS: amLODIPine 5 MG TABLET PO SCH (10:28)
[2018-02-11] MEDS: Aspirin 325 MG TABLET PO SCH (10:29)
[2018-02-11] MEDS ORDERED: Isosorbide MONOnitrate (24 HR) 30 MG TAB.ER.24H PO SCH (11:15)
--- NOTE | 2018-02-11 11:28 | Cardiology Consult Note ---
Addendum entered and electronically signed by Ministerio Flores MD 02/11/18 14:34: I examined this patient and my medical decision-making was reviewed with the MATH AND PHYSICS INSTRUCTOR. I agree with the documented findings, disposition and treatment plan as described except to the extent set forth below. A/P: Chest pain ruling out OR Abnormal stress test - low risk equivocal findings CAD per pt from [facility] last year Symptoms resolved, low risk stress. A/R/B of [facility] vs med tx dw patient. He is aware and agreeable with medical therapy with close outpt fu. Abstain from strenuous or sudden activity and return if severe sxs. Thank you for the consult, Ministerio Flores MD [facility] Original Note: Date of Encounter: 02/11/18 Time of Encounter: 12:00 Assessment and Plan (1) Chest pain Current Visit: Yes Status: Chronic Per Cardiology: Continues to experience worsening exertional chest pain and chest pain at rest. Troponins negative 2. Patient was unable to complete DSE about one month ago. Currently chest pain-free. Qualifiers: Chest pain type: unspecified Qualified Code(s): R07.9 - Chest pain, unspecified (2) Abnormal nuclear stress test Current Visit: Yes Status: Acute Per Cardiology: Current nuclear stress test results show: Impression: Pharmacologic stress ECG is negative for ischemia at level of heart rate achieved. Gated EF = 68%. Small sized, mild intensity, reversible basal to mid inferior perfusion defect possibly due to ischemia. Low risk positive study. Patient reports catheterization at outside facility about one year ago with no stenting at that time, however does report mention of blockage and started on long-acting nitrate. We will continue to attempt to treat catheter report from outside facility. I discussed with patient potential titration of long-acting nitrate and follow-up with cardiology as scheduled next week versus repeat ischemic evaluation, at this point patient and preferring catheterization. We will evaluate catheterization report and discuss further. Will increase long-acting nitrate. Currently on aspirin, statin, and ARB. Echo from December 2017 showed: Impressions: LVEF 60-65%. Normal LV chamber size, wall thickness and function. Normal right ventricular structure and function. Mild mitral regurgitation. (3) Nonhealing surgical wound Current Visit: Yes Status: Chronic Per Cardiology: Previous surgical note noted. Patient appears to have long-standing nonhealing wound being managed by wound center. Denies any current pending surgical intervention. Qualifiers: Encounter type: initial encounter Qualified Code(s): T81.89XA - Other complications of procedures, not elsewhere classified, initial encounter Discussion w patient/family: The assessment and plan as outlined above was discussed with the patient and/or family members who expressed understanding and agreement. All questions were answered. Thank you for involving us in the care of your patient. Please call with any questions. History of Present Illness Consult date: 02/11/18 Requesting physician: Jose Weiss Consult reason: CP, abnormal nuclear stress test Chief complaint: Chest pain History of present illness: Mr. Jimenez is a 52 year old male with a relevant past medical history of CAD, CH F, COPD, history CVA, DM 2, HTN, HLD, open wound with ventral hernia being managed by wound care, and nicotine abuse. Seen by cardiology last month during hospital stay for chest pain and mild troponin elevation. Patient is unable to complete debridement stress echo at that time. Cardiology consult today for chest pain and mildly abnormal nuclear stress test. Patient seen today with at bedside. Patient reports continued exertional chest pressure midsternal region into his left anterior chest wall with stressful situations and with walking/exertional activities. He reports symptoms eventually subsided and improved with rest. He does report dyspnea on exertion and overall worsening of the symptoms as well. He does report chronic ventral hernia open wound being medically managed. He denies any awareness to any pending surgery. He denies any palpitations, dizziness, syncope, falls. Reports history of smoking about 2 packs per day for the past 40 years, currently smoking one pack per day. Reports family history of mother with CHF/CAD with CABG. Additionally, reports 2 brothers with OR with subsequent stenting and history of bypass reportedly the 40s. Also reports sister with history of CAD. He reports underwent left heart catheterization about one year ago at [facility] by Dr. Marquez-- he reports no stenting at that time and indicates was started on Imdur for a blockage. He denies any active bleeding or blood loss. Past Med Surg Social Fam HX - Past Medical History Attestation: Yes The following information was validated with the patient. Source: patient, old records reviewed, obtained from family Medical history: CHF, COPD, coronary artery disease, CVA, diabetes, hyperlipidemia, hypertension, myocardial infarction, peripheral artery disease, other Additional medical history: CVA-2017 Psychiatric history: anxiety - Past Surgical History Surgical History: appendectomy, cholecystectomy, herniorrhaphy Additional surgical history: Bowel resection/ perforated repair August 1996. August 1997 hernia repair. May 2007 mesh and hernia repair - Social History Smoking Status: Current every day smoker Packs per day: 1 Smokeless Tobacco Status: No Alcohol use: none Drug use: none - Family History Mother Living Status: Hx Family Cardiac Disorders: Yes (heart disease) Father Living Status: Still Living Hx Family Cardiac Disorders: Yes (valve replacement, heart disease) Hx Family Respiratory Disorders: No Hx Family Cancer: No Hx Family GI Disorders: No Hx Family Endocrine Disorder: Yes (DM) Hx Family Neuromuscular Disorders: No Hx Family Neurologic Disorders: No Hx Family HEENT Disorders: No Hx Family Autoimmune Disorders: No Medications and Allergies Aspirin 325 mg PO DAILY 07/22/17 [History] Buspirone HCl [Buspar] 30 mg PO DAILY 07/22/17 [History] Docusate Sodium [Stool Softener] 100 mg PO DAILY PRN 07/22/17 [History] FLUoxetine HCl [Sarafem] 20 mg PO TID 07/22/17 [History] Furosemide [Lasix] 20 mg PO DAILY 07/22/17 [History] Insulin ASPART [NovoLOG] 10 unit SQ TIDWM 07/22/17 [History] Loratadine [Allergy Relief] 10 mg PO DAILY 07/22/17 [History] Losartan [Cozaar] 100 mg PO DAILY 07/22/17 [History] Omeprazole [PriLOSEC] 40 mg PO DAILY 07/22/17 [History] Simvastatin [Zocor] 20 mg PO HS 07/22/17 [History] Zolpidem [Ambien] 10 mg PO HS 07/22/17 [History] lamoTRIgine [Lamotrigine] 100 mg PO DAILY 07/22/17 [History] metFORMIN [Glucophage] 1,000 mg PO BIDWM 07/22/17 [History] Fluticasone/Vilanterol [Breo Ellipta 200-25 Mcg INH] 2 puff IH DAILY PRN 12/22/17 [History] Insulin Glargine,Hum.rec.anlog [Basaglar Kwikpen U-100] 40 unit SQ HS 12/22/17 [History] Pregabalin [Lyrica] 150 mg PO TID 12/22/17 [History] amLODIPine [Norvasc] 10 mg PO DAILY #30 tablet 12/24/17 [Rx] cloNIDine HCl [Clonidine HCl] 0.2 mg PO BID #60 tablet 12/24/17 [Rx] Potassium Chloride [Klor-Con 10] 10 meq PO BID 01/12/18 [History] rOPINIRole [Requip] 1 mg PO QPM 01/12/18 [History] DiphenhydraMINE [Benadryl] 25 mg PO Q8HR PRN 02/09/18 [History] Gabapentin [Neurontin] 600 mg PO TID 02/09/18 [History] Allergy/AdvReac Type Severity Reaction Status Date / Time promethazine [From Phenergan] Allergy Agitated Verified 01/12/18 16:39 plastic tape AdvReac Blister Uncoded 07/22/17 13:41 All Systems Review: The remainder of the systems were reviewed and are negative - Cardiovascular Cardiovascular: as per HPI, chest pain with exertion, dyspnea on exertion Physical Examination Vital Signs, Last 4 Hours Temp Pulse Resp BP Pulse Ox 02/11/18 07:40 97.7 F 55 18 140/94 98 General: Conversant, No Apparent Distress HEENT: Atraumatic, Normocephaly, Mucus Membranes Moist Neck: No JVD, Normal carotid pulses Cardiac: Reg Rate and Rhythm, Normal S1 and S2, No Murmur Lungs: Normal Breath Sounds, No Wheeze, Rales, Rhonchi Neuro: Alert and responsive, No focal deficits noted Abdomen: Soft, Non-Tender, Other (Obese, abdominal dressing dry and intact) Skin: No rashes noted on visualized skin Musculoskeletal: No Chest Wall Tenderness Extremities: No Clubbing, No Cyanosis, No Edema, Normal Pulses Results 02/10/18 04:40 02/10/18 04:40 Laboratory Tests 02/09/18 02/09/18 02/10/18 17:46 17:46 04:40 Hgb 12.0 L D Hct 36.4 L INR Creatinine Est GFR (Non-Af Amer) Troponin I < 0.03 B-Natriuretic Peptide 24 02/10/18 02/10/18 04:40 04:40 Hgb Hct INR 1.2 Creatinine 0.88 Est GFR (Non-Af Amer) > 60 Troponin I < 0.03 B-Natriuretic Peptide ITS Impressions Chest X-Ray 02/09/18 18:03 IMPRESSION: No evidence of acute cardiopulmonary disease. D/ / Irvin Marquez MD / Irvin Marquez MD Interpreting Provider: Irvin Marquez MD Active Medications Albuterol/Ipratropium (Duoneb) 3 ml IH [id number] PRN PRN Reason: Shortness Of Breath/Wheezing Stop: 08/11/18 21:49 Amlodipine Besylate (Norvasc) 10 mg PO DAILY [facility]; Protocol Stop: 08/12/18 09:01 Last Admin: 02/11/18 10:28 Dose: 10 mg Aspirin (Aspirin) 325 mg PO DAILY [facility] Stop: 08/12/18 09:01 Last Admin: 02/11/18 10:29 Dose: 325 mg Buspirone HCl (Buspar) 30 mg PO BID PRN PRN Reason: Anxiety Clonidine HCl (Clonidine Hcl) 0.2 mg PO BID [facility] Stop: 08/11/18 22:01 Last Admin: 02/11/18 10:28 Dose: 0.2 mg Fluoxetine HCl (Prozac) 60 mg PO DAILY [facility] Stop: 08/12/18 09:01 Last Admin: 02/11/18 10:28 Dose: 60 mg Glucose (Gluctose) 15 gm PO ONCE PRN PRN Reason: Hypoglycemia Stop: 08/11/18 21:36 Glucose (Gluctose) 30 gm PO ONCE PRN PRN Reason: Hypoglycemia Stop: 08/11/18 21:36 Heparin Sodium (Porcine) (Heparin) 5,000 unit SQ Q8HCO [facility] Stop: 08/11/18 22:01 Last Admin: 02/11/18 06:13 Dose: 5,000 unit Insulin Detemir (Levemir) 40 unit SQ HS [facility] Stop: 08/11/18 21:46 Last Admin: 02/10/18 21:15 Dose: 40 unit Insulin Human Lispro (Humalog) 0 units SQ HS [facility]; Protocol Stop: 08/12/18 21:01 Last Admin: 02/10/18 21:04 Dose: Not Given Insulin Human Lispro (Humalog) 0 units SQ TIDAC [facility]; Protocol Stop: 08/12/18 07:31 Last Admin: 02/11/18 08:08 Dose: Not Given Isosorbide Mononitrate (Imdur) 30 mg PO DAILY [facility] Stop: 08/13/18 11:16 Isosorbide Mononitrate (Imdur) 60 mg PO DAILY [facility] Stop: 08/14/18 09:01 Lamotrigine (Lamictal) 100 mg PO DAILY [facility] Stop: 08/12/18 09:01 Last Admin: 02/11/18 10:28 Dose: 100 mg Loratadine (Claritin) 10 mg PO DAILY [facility] Stop: 08/12/18 09:01 Last Admin: 02/11/18 10:28 Dose: 10 mg Losartan Potassium (Cozaar) 100 mg PO DAILY [facility]; Protocol Stop: 08/12/18 09:01 Last Admin: 02/11/18 10:28 Dose: 100 mg Menthol (Cough Drops) 9.1 mg PO Q2H PRN PRN Reason: Cough Stop: 08/12/18 04:34 Last Admin: 02/10/18 05:10 Dose: 9.1 mg Nitroglycerin (Nitroglycerin) 0.4 mg SL Q5MIN PRN PRN Reason: Chest Pain Stop: 08/11/18 18:07 Last Admin: 02/09/18 18:37 Dose: 0.4 mg Omeprazole (Prilosec) 40 mg PO 629 [facility]; Protocol Stop: 08/12/18 06:31 Last Admin: 02/11/18 06:13 Dose: 40 mg Pharmacy Profile Note (Patient Taking Own Medication) 2 each IH DAILY [facility] Stop: 08/12/18 09:01 Last Admin: 02/11/18 08:40 Dose: Not Given Potassium Chloride (Potassium Chloride) 10 meq PO BID [facility] Stop: 08/12/18 09:01 Last Admin: 02/11/18 10:29 Dose: 10 meq Pregabalin (Lyrica) 150 mg PO TID [facility] Stop: 08/12/18 09:01 Last Admin: 02/11/18 10:28 Dose: 150 mg Ropinirole HCl (Requip) 1 mg PO [facility] Stop: 08/11/18 21:46 Last Admin: 02/10/18 21:15 Dose: 1 mg Simvastatin (Zocor) 20 mg PO [facility]; Protocol Stop: 08/11/18 21:46 Last Admin: 02/10/18 21:15 Dose: 20 mg Zolpidem Tartrate (Ambien) 10 mg PO [facility]; Protocol Stop: 08/11/18 21:46 Last Admin: 02/10/18 21:14 Dose: 10 mg - Imaging and Cardiology Stress Test: report reviewed Echo: report reviewed Cardiac cath: other (Attempting to retrieve cath report from outside facility one year ago) - EKG Interpretation EKG results cardiology: personally reviewed (Comparable to baseline), normal ECG, sinus rhythm, no diagnostic ischemia Consult Discharge Plan - Plan Referrals: Dana Rivera, MATH AND PHYSICS INSTRUCTOR [Primary Care Provider] - 02/16/18 1:00 pm
[2018-02-11 11:44] VITALS: BP 144/72
--- NOTE | 2018-02-11 14:00 | Event Note ---
Date of Encounter: 02/11/18 Time of Encounter: 14:00 - Cardiology Event Note Catheter report still unavailable for review. Lengthy discussion with patient and , patient agreeable to increased dose of long-acting nitrates and follow up in outpatient setting next week as planned. Cardiology will sign off, reconsult as needed, follow up arranged. Discussed with primary service and pending discharge today. All questions answered. Discussed and reviewed with Dr. Flores.
--- NOTE | 2018-02-11 14:05 | Discharge Summary ---
- NOTES TO OUTPATIENT PROVIDER Notes to Outpatient Provider: Follow up with PCP in one week. Follow-up with cardiology Dr. Flores / GINNING OPERATOR Katarzyna Yoder. Please start taking Imdur 60mg PO Daily Orders not resulted at time of discharge: Pending orders 02/10/18 08:45 NM shyanne perf SPECT multi [NM] Routine Date of Encounter: 02/11/18 Time of Encounter: 14:03 - Discharge Diagnosis (1) Chest pain Priority: Primary Status: Chronic Qualifiers: Chest pain type: unspecified Qualified Code(s): R07.9 - Chest pain, unspecified (2) Nonhealing surgical wound Priority: Secondary Status: Chronic Qualifiers: Encounter type: initial encounter Qualified Code(s): T81.89XA - Other complications of procedures, not elsewhere classified, initial encounter (3) Diabetes mellitus Priority: Secondary Status: Chronic Qualifiers: Diabetes mellitus type: type 2 Diabetes mellitus chcf insulin use: with chcf use Diabetes mellitus complication status: with hyperglycemia Qualified Code(s): E11.65 - Type 2 diabetes mellitus with hyperglycemia; 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 transplanted heart: [place] heart Associated angina: angina presence unspecified Qualified Code(s): I25.10 - Atherosclerotic heart disease of [place] coronary artery without angina pectoris (5) Diarrhea Priority: Secondary Status: Acute Qualifiers: Diarrhea type: unspecified type Qualified Code(s): R19.7 - Diarrhea, unspecified (6) DVT prophylaxis Priority: Secondary Status: Acute Hospital course: Mr. Jimenez is a 52-year-old morbidly obese male, with a known past medical history of tobacco dependence, hypertension, insulin-dependent diabetes and coronary heart disease with multiple abdominal surgical interventions leading to incisional hernias who has been admitted twice in the past 2 months with complaints of chest pain in the setting of hypertensive urgencies, now he presented to ER complaining about sub sternal chest pain and shortness of breath. He was admitted in the hospital and placed him on cardiac care nurse. His serial troponins were negative. However since patient seems to be high risk for ACS I did nuclear stress test for which he needed 2 days stress test due to high BMI. Today his stress report came back as low risk positive study with a small size mild intensity, reversible basal to mid inferior perfusion defect. Patient was evaluated by pega developer Dr. Flores who recommend to follow with cardiology as an outpatient to discuss about further workup such as LHC since it is a low risk abnormal stress test. However he recommended to start the patient on imdur 60 mg PO daily for now. So will discharge the patient home in stable condition today. I also asked the patient to follow up with his wound care surgeon Dr. Dubois regarding his chronic non healing ulcer to discuss about possible wound vac placement. - Time Spent with Patient Total time spent providing and/or coordinating discharge services: - Discharge Medications Prescriptions: Nitroglycerin 0.4 mg SL Q5MIN PRN #15 tab.subl PRN Reason: Chest Pain Isosorbide MONOnitrate (24 HR) [Imdur] 60 mg PO DAILY #30 tab.er.24h Home Medications: Aspirin 325 mg PO DAILY 07/22/17 [History] Buspirone HCl [Buspar] 30 mg PO DAILY 07/22/17 [History] Docusate Sodium [Stool Softener] 100 mg PO DAILY PRN 07/22/17 [History] FLUoxetine HCl [Sarafem] 20 mg PO TID 07/22/17 [History] Furosemide [Lasix] 20 mg PO DAILY 07/22/17 [History] Insulin ASPART [NovoLOG] 10 unit SQ TIDWM 07/22/17 [History] Loratadine [Allergy Relief] 10 mg PO DAILY 07/22/17 [History] Losartan [Cozaar] 100 mg PO DAILY 07/22/17 [History] Omeprazole [PriLOSEC] 40 mg PO DAILY 07/22/17 [History] Simvastatin [Zocor] 20 mg PO HS 07/22/17 [History] Zolpidem [Ambien] 10 mg PO HS 07/22/17 [History] lamoTRIgine [Lamotrigine] 100 mg PO DAILY 07/22/17 [History] metFORMIN [Glucophage] 1,000 mg PO BIDWM 07/22/17 [History] Fluticasone/Vilanterol [Breo Ellipta 200-25 Mcg INH] 2 puff IH DAILY PRN 12/22/17 [History] Insulin Glargine,Hum.rec.anlog [Basaglar Kwikpen U-100] 40 unit SQ HS 12/22/17 [History] Pregabalin [Lyrica] 150 mg PO TID 12/22/17 [History] amLODIPine [Norvasc] 10 mg PO DAILY #30 tablet 12/24/17 [Rx] cloNIDine HCl [Clonidine HCl] 0.2 mg PO BID #60 tablet 12/24/17 [Rx] Potassium Chloride [Klor-Con 10] 10 meq PO BID 01/12/18 [History] rOPINIRole [Requip] 1 mg PO QPM 01/12/18 [History] DiphenhydraMINE [Benadryl] 25 mg PO Q8HR PRN 02/09/18 [History] Gabapentin [Neurontin] 600 mg PO TID 02/09/18 [History] Isosorbide MONOnitrate (24 HR) [Imdur] 60 mg PO DAILY #30 tab.er.24h 02/11/18 [Rx] Nitroglycerin 0.4 mg SL Q5MIN PRN #15 tab.subl 02/11/18 [Rx] Allergies/Adverse Reactions: Allergy/AdvReac Type Severity Reaction Status Date / Time promethazine [From Phenergan] Allergy Agitated Verified 01/12/18 16:39 plastic tape AdvReac Blister Uncoded 07/22/17 13:41 Date of admission: 02/09/18 19:40 Primary care physician: Dana Rivera CNP Consults: 02/11/18 08:51 Consult to Wound Care [CONS] Routine Reason for Consult: wound to medial abdomen Call Completed: No 02/11/18 10:52 Consult to Cardiology [CONS] Routine Comment: abnormal stress test Consulting Provider: Cardiology Allison Reason for Consult: abnormal stress test Time Notified: 10:53 Call Completed: Yes - Constitutional Vitals: Temp Pulse Resp BP Pulse Ox 98.5 F 57 18 144/72 98 02/11/18 11:39 02/11/18 11:39 02/11/18 11:39 02/11/18 11:39 02/11/18 11:39 General appearance: Present: cooperative, A&O X 3, answers questions appropriately Exam: Gen: Alert, awake, Oriented to time,place and person Chest: Diminished breath sounds B/L, No wheezing, No crackles, No rales Heart: S1S2+ RRR No murmurs Abd: Soft, NT, BS +, No organomegaly, ventral hernia +.. 6 to 7 cm size chronic nonhealing lenient ulcer noticed over the previous surgical scar in the lower abdomen region Ext: No edema, pulses are palpable, No calf tenderness Neuro : Benign findings Skin: No rash. - Patient Status Disposition: Home, Self-Care Condition: Good Overall status at discharge: patient is back to baseline - Discharge Instructions Follow Up With: Dana Rivera CNP [Primary Care Provider] - 02/16/18 1:00 pm Katarzyna Yoder CNP [Partnered Physician] - - Diet and Activity Activity: increase activity as tolerated Diet: low salt diet
[2018-02-12] MEDS ORDERED: Isosorbide MONOnitrate (24 HR) 60 MG TAB.ER.24H PO SCH (09:00)
== END 2018-02-11 14:20 | disposition home or self-care (01) ==
LOC: 3BNU 17:33 → EMEROOARM 17:33 → SUATTDRO 19:40 → 3BNU 20:59
PROVIDERS: ADMIT Family Medicine; ATTEND Family Medicine

== ENCOUNTER 2018-10-04 02:10 | Observation (INO) ==
--- NOTE | 2018-10-04 02:59 | Internal Med History&Physical ---
<Tre Brunson - Last Filed: 10/04/18 04:01> Date of Encounter: 10/04/18 Time of Encounter: 02:59 Internal Medicine - H&P: HPI Chief complaint: Abdominal pain Admitted From: Emergency Dept Plans for Post Hospital Care: Home History of present illness: Mr. Jimenez is a 53 year old male with past medical history of Large ventral hernia, CHF, COPD, CAD, CVA, morbid obesity, diabetes, hyperlipidemia, hy pertension, PAD, anxiety. Presented to [facility] emergency department with complaint of abdominal pain this evening. Patient states that symptoms started Wednesday have been progressively worsening. He has had issues like this in the past which mostly fall from around his large ventral hernia. Of note, patient has been evaluated multiple times by surgeons including at this facility. In January 2018, he was evaluated by Dr. Tucker at the request of the hospitalist team who after examination determined that patient would benefit most from evaluation at [facility] due to the size and complexity of this ventral hernia. Patient states that his symptoms have been preventing oral intake at this time. He has been trying to taking Gatorade and water however has had difficulty keeping anything down. He is also not had a bowel movement since Wednesday. He does admit to some subjective fevers and chills in this time. He also admits to difficulty breathing when he tried he believes. Denies chest pains or cough. He has had very little urine output starting yesterday and noted some dysuria when he is able to urinate. In the [facility] ED, vital signs were significant for a pulse of 136, temperature 97.1, blood pressure 147/106 m tolerating 93% oxygen on 3 L, respiratory rate 20. Labs show mild leukocytosis of 11.7, hemoglobin 13.6, platelet 531, sodium 137, potassium 4.4, chloride 92, bicarbonate 24, BUN/creatinine of 43/4.22, calcium 10.8, LFTs within normal limits. Lipase was 97. Troponin was less than 0.05. CT of the abdomen shows large midline abdominal wall defect with herniation of both small and large bowel; ostial defect measures up to 12.4 cm in transverse axial dimension. Severe dilation of the stomach, proximal and mid small bowel with air-fluid levels characteristic of obstruction. Relative collapse configuration of the herniated large bowel and mild colonic stool burden. No bowel wall thickening was noted. No pneumoperitoneum or free intraperitoneal fluid. Gallbladder surgically absent. Small right renal cyst. Abdominal organs are otherwise normal in appearance. Impression was noted to be mechanical small bowel structure and attributable to substantial midline ventral hernia and recommending surgical consultation. At time of my interview, patient continues to have 10/10 abdominal pain most prominent in the epigastric region. He denies radiation and his nausea is moderately well-controlled this time. Shortly after patient's arrival to [place], we did contact on-call surgical care regarding the size and complexity of this hernia. Surgeon on-call stated that she was not informed of the full scope of patient's presentation, however stated that patient's obstructive nature is more likely related to adhesions given the size of the hernia. Patient has had multiple interventions on this hernia including exploratory celiotomy and repair. Surgery recommended NG tube which was placed at [facility] to low intermittent suction as well as supportive care. She did agree to consult and no urgent surgical intervention was necessary. PMHx: as above PSHx: Ventral hernia repair in , exploratory celiotomy, cholecystectomy, appendectomy, bowel resection for perforation. Social history: Smoker up until 2 days ago, denies alcohol or drug use Family history: Noncontributory Past Med Surg Social Fam HX - Past Medical History Medical history: CHF, COPD, coronary artery disease, CVA, diabetes, hyperlipidemia, hypertension, myocardial infarction, peripheral artery disease, other Additional medical history: CVA-2017 Psychiatric history: anxiety - Past Surgical History Surgical History: appendectomy, cholecystectomy, herniorrhaphy Additional surgical history: Bowel resection/ perforated repair August 1996. August 1997 hernia repair. May 2007 mesh and hernia repair - Social History Smoking Status: Current every day smoker Smokeless Tobacco Status: No Alcohol use: none Drug use: none - Family History Mother Living Status: Hx Family Cardiac Disorders: Yes (heart disease) Father Living Status: Still Living Hx Family Cardiac Disorders: Yes (valve replacement, heart disease) Hx Family Respiratory Disorders: No Hx Family Cancer: No Hx Family GI Disorders: No Hx Family Endocrine Disorder: Yes (DM) Hx Family Neuromuscular Disorders: No Hx Family Neurologic Disorders: No Hx Family HEENT Disorders: No Hx Family Autoimmune Disorders: No Internal Medicine - H&P: Meds Aspirin 325 mg PO DAILY 07/22/17 [History] Buspirone HCl [Buspar] 30 mg PO DAILY 07/22/17 [History] Docusate Sodium [Stool Softener] 100 mg PO DAILY PRN 07/22/17 [History] FLUoxetine HCl [Sarafem] 20 mg PO TID 07/22/17 [History] Furosemide [Lasix] 20 mg PO DAILY 07/22/17 [History] Insulin ASPART [NovoLOG] 10 unit SQ TIDWM 07/22/17 [History] Loratadine [Allergy Relief] 10 mg PO DAILY 07/22/17 [History] Losartan [Cozaar] 100 mg PO DAILY 07/22/17 [History] Omeprazole [PriLOSEC] 40 mg PO DAILY 07/22/17 [History] Simvastatin [Zocor] 20 mg PO HS 07/22/17 [History] Zolpidem [Ambien] 10 mg PO HS 07/22/17 [History] lamoTRIgine [Lamotrigine] 100 mg PO DAILY 07/22/17 [History] metFORMIN [Glucophage] 1,000 mg PO BIDWM 07/22/17 [History] Fluticasone/Vilanterol [Breo Ellipta 200-25 Mcg INH] 2 puff IH DAILY PRN 12/22/17 [History] Insulin Glargine,Hum.rec.anlog [Basaglar Kwikpen U-100] 40 unit SQ HS 12/22/17 [History] Pregabalin [Lyrica] 150 mg PO TID 12/22/17 [History] amLODIPine [Norvasc] 10 mg PO DAILY #30 tablet 12/24/17 [Rx] cloNIDine HCl [Clonidine HCl] 0.2 mg PO BID #60 tablet 12/24/17 [Rx] Potassium Chloride [Klor-Con 10] 10 meq PO BID 01/12/18 [History] rOPINIRole [Requip] 1 mg PO QPM 01/12/18 [History] DiphenhydraMINE [Benadryl] 25 mg PO Q8HR PRN 02/09/18 [History] Gabapentin [Neurontin] 600 mg PO TID 02/09/18 [History] Nitroglycerin 0.4 mg SL Q5MIN PRN #15 tab.subl 02/11/18 [Rx] Albuterol Sulfate 2.5 mg IH QID PRN 03/16/18 [History] Isosorbide MONOnitrate (24 HR) [Imdur] 30 mg PO DAILY 03/16/18 [History] Allergy/AdvReac Type Severity Reaction Status Date / Time Bee Pollen Allergy See Verified 03/16/18 08:22 Comments promethazine [From Phenergan] Allergy Agitated Verified 01/12/18 16:39 plastic tape AdvReac Blister Uncoded 07/22/17 13:41 All Systems PM: A 10-system review of systems was performed and is negative for pertinent findings except as documented above in the HPI. Review of systems: - Constitutional: Admits to fevers, chills. Denies weight loss, generalized fatigue - Head/Neck: Denies POTTER, neck stiffness - EENT: Denies vision changes/blurriness, rhinorrhea, congestion, sore throat, odynaphagia - CVS: Denies chest pain, palpitations, orthopnea, edema, PND, - Pulm: Denies SOB, cough, sputum, hematemesis, wheezing - GI: Admits to abdominal pain, anorexia, nausea, vomiting. Denies diarrhea, constipation, melena - : admits to decreased output. Denies dysuria, increased frequency, urgency, hematuria, - MSK: Denies joint pain, limited ROM - Skin: Denies rashes, ulcers, color changes, - Neuro: Denies POTTER, paresthesias, focal deficits, ataxia - Constitutional Vitals: Temp Pulse Resp BP Pulse Ox 97.3 F L 117 20 109/69 94 10/04/18 02:38 10/04/18 02:38 10/04/18 02:38 10/04/18 02:38 10/04/18 02:38 Exam: Gen.: Vitals noted. Moderate distress secondary to pain. AAOx3, appears uncomfortable HEENT: PERRL/EOMI, oropharynx clear, Normocephalic, atraumatic, dry mucus membranes Cardiac: tachycardic, no murmur, +S1/S2, No BLE edema Pulmonary: mildly tachypnic. CTA bilaterally, no wheezes, rales or rhonchi, equal chest expansion, unlabored breathing Abdomen: Diffusely tender. Extensive ventral wall hernia. BS hypoactive and high pitched, no guarding, no palpable HSM Skin: warm and dry, midline wound without surrounding erythema. MSK: ROM intact, no joint swelling noted, gait no assessed while in bed. Non tender calf or clubbing Neuro: A&Ox3, moves all extremities, no focal deficits Psych: Appropriate mood and behavior, AOx3 Internal Med - H&P Results - Labs CBC & Chem 7: 10/04/18 03:28 10/04/18 03:28 - Assessment and Plan (1) Ventral hernia Current Visit: Yes Status: Chronic Assessment and plan: - Acute on chronic - Causing obstruction as demonstrated on CT in [facility] - Discussed the case with director airport operations surgery, recommended supportive care as documented in HPI - Per surgery, this is more likely to be related to adhesions from multiple surgeries and less likely related to the actual hernia itself. - Previous documentation from Dr. Tucker in January 2018 states that a surgery this complicated would be better handled at [facility]. - The hernia repair will likely have to be done at different facility, however the potential repair is not emergent at this time. Plan - NG tubed placed and on low-intermittent suction - Pain control - Surgery consulted. Qualifiers: Obstruction and gangrene presence: with obstruction but without gangrene Qualified Code(s): K43.6 - Other and unspecified ventral hernia with obstruction, without gangrene (2) Bowel obstruction Current Visit: Yes Status: Acute Assessment and plan: as above Qualifiers: Intestinal obstruction type: obstruction due to adhesions Intestinal obst ruction extent: complete Qualified Code(s): K56.52 - Intestinal adhesions [bands] with complete obstruction (3) BRANDIN (acute kidney injury) Current Visit: Yes Status: Acute Assessment and plan: - BUN/Cr of 47/4.67 on presentation to this facility - K of 4.5, biacarb of 21 - Etiology is likely pre-renal from poor oral intake, copious NG output - It is possible that this has progressed to ATN - Patient notes poor urine output and it was reported that he only had 30 cc output at [facility] ED Plan - Will give fluid challenge of 1.5L bolus followed by maintenence. - May need additional depending on how he responds - Closely monitor kidney function - Will order Urine studies (4) Lactic acid acidosis Current Visit: Yes Status: Acute Assessment and plan: lactic acid here noted to be 6.7 etiology is possibly due to decreased oral intake with possible bowel involveme nt CT did not show evidence of ischemia, although it was without contrast due to his kidney function Patient not displaying bloody bowel movements Plan It is difficult to determine if this is related to infection, however I suspect that tachcyardia, leukocytosis and lactic acid could be better explained by his obstruction Will give fluids and trend the lactic acid. (5) CAD (coronary artery disease) Current Visit: Yes Status: Chronic Assessment and plan: chronic NPO- holding PO meds Qualifiers: Coronary Disease-Associated Artery/Lesion type: [place] artery [place] vs. transplanted heart: [place] heart Associated angina: angina presence unspecified Qualified Code(s): I25.10 - Atherosclerotic heart disease of [place] coronary artery without angina pectoris (6) COPD (chronic obstructive pulmonary disease) Current Visit: Yes Status: Chronic Assessment and plan: not in acute exacerbation home O2 dependent on 3 L Qualifiers: COPD type: unspecified COPD Qualified Code(s): J44.9 - Chronic obstructive pulmonary disease, unspecified (7) Diabetes mellitus Current Visit: Yes Status: Chronic Assessment and plan: non insulin dependent Poor oral intake secondary to SBO A1c of 7.3 in march 2018 q6h accuchecks with SSI NPO Qualifiers: Diabetes mellitus type: type 2 Diabetes mellitus termination clerk insulin use: with half-way use Diabetes mellitus complication status: with hyperglycemia Qualified Code(s): E11.65 - Type 2 diabetes mellitus with hyperglycemia; Z79.4 - prison (current) use of insulin (8) Hypertension Current Visit: Yes Status: Chronic Assessment and plan: most recent 109/69 giving fluids for lactic acid and brandin continue to monitor Qualifiers: Hypertension type: essential hypertension Qualified Code(s): I10 - Essential (primary) hypertension (9) DVT prophylaxis Current Visit: Yes Status: Acute Assessment and plan: heparin - Time Spent With Patient Total time spent is greater than 50% in coordination of care (as documented) at patient's floor/unit and/or counseling patient: <Mariela Bassett - Last Filed: 10/04/18 06:05> Date of Encounter: 10/04/18 Internal Medicine - H&P: HPI History of present illness: Mr. Jimenez is a 53 year old male All Systems PM: A 10-system review of systems was performed and is negative for pertinent findings except as documented above in the HPI. - Constitutional Vitals: Temp Pulse Resp BP Pulse Ox 97.3 F L 117 20 109/69 94 10/04/18 02:38 10/04/18 02:38 10/04/18 02:38 10/04/18 02:38 10/04/18 02:38 Internal Med - H&P Results - Labs CBC & Chem 7: 10/04/18 03:28 10/04/18 03:28 Labs: Short CBC 10/04/18 Range/Units 03:28 WBC 9.5 (4.3-11.1) K/mcL Hgb 12.9 (12.9-16.9) g/dL Hct 42.7 (37.5-50.1) % Plt Count 488 H (140-400) K/mcL Neutrophils # 6.7 (1.6-8.9) K/mcL BMP 10/04/18 03:28 Sodium 131 L Potassium 4.5 Chloride 87 L Carbon Dioxide 21 L BUN 47 H Creatinine 4.67 H Glucose 262 H Calcium 10.1 Liver Function 10/04/18 Range/Units 03:28 Total Bilirubin 0.7 (0.3-1.0) mg/dL AST 23 (13-39) Units/L ALT 25 (7-52) Units/L Alkaline Phosphatase 95 (34-104) Units/L Albumin 4.6 (3.5-5.7) g/dL - Time Spent With Patient Total time spent is greater than 50% in coordination of care (as documented) at patient's floor/unit and/or counseling patient: - Attending Attestation I performed a history and physical examination of the patient and discussed his management with the resident. I reviewed the residents note and agree with the documented findings and plan of care.
[2018-10-04 03:39] LABS: Hematocrit 42.7 % (37.5-50.1); Hemoglobin 12.9 g/dL (12.9-16.9); Mean Corpuscular HGB Conc 30.2 g/dL (31.6-35.5); Mean Corpuscular Hemoglobin 23.7 pg (28.0-33.3); Mean Corpuscular Volume 78.5 fL (83.0-100.0); Mean Platelet Volume 10.1 fL (9.4-12.4); Platelet Count 488 K/mcL (140-400); Red Blood Count 5.44 M/mcL (4.19-5.50); Red Cell Distribution Width 18.8 % (11.5-14.5); White Blood Count 9.5 K/mcL (4.3-11.1)
[2018-10-04] MEDS ORDERED: 0.9 % Sodium Chloride 500 ML IVC ONE (03:41)
[2018-10-04] MEDS ORDERED: Naloxone 0.4 MG/ML INJ IVP PRN (03:42)
[2018-10-04] MEDS ORDERED: *HR* Dextrose 50 % in Water (Syg) 50 ML SYRINGE IVP PRN ×2 (03:52→20:32)
[2018-10-04] MEDS ORDERED: D5% in Water 1,000 ML IVC PRN ×2 (03:52→20:32)
[2018-10-04] MEDS ORDERED: Dextrose Gel 15 GM/37.5 ML TUBE PO PRN ×4 (03:52→20:32)
[2018-10-04 03:57] LABS: Albumin 4.6 g/dL (3.5-5.7); Bilirubin,Total 0.7 mg/dL (0.3-1.0); Calcium 10.1 mg/dL (8.6-10.3); Globulin 4.6 g/dL (2.4-3.5); Potassium 4.5 mEq/L (3.5-5.1); Total Protein 9.2 g/dL (6.4-8.9)
[2018-10-04 04:00] LABS: Lymphocytes # 2.1 K/mcL (0.6-4.6); Monocytes # 0.8 K/mcL (0.0-1.3); Neutrophils # 6.7 K/mcL (1.6-8.9); Platelet Estimate Normal (Normal)
[2018-10-04] MEDS: *HR* FentaNYL (PF) 100 MCG/2 ML VIAL IVP PRN ×6 (04:04→19:53)
[2018-10-04 04:05] LABS: Magnesium 1.5 mg/dL (1.6-2.6)
[2018-10-04] MEDS: Ondansetron 4 MG/2 ML VIAL IVP PRN ×3 (04:05→18:28)
[2018-10-04] MEDS ORDERED: 0.9 % Sodium Chloride 1,000 ML IVC SCH (04:15)
[2018-10-04] MEDS: 0.9 % Sodium Chloride 1,000 ML IVC ONE ×2 (04:51→05:27)
[2018-10-04] MEDS: *HR* Heparin 5,000 UNIT/ML VIAL SQ SCH ×2 (05:25→18:28)
[2018-10-04] MEDS: Insulin LISPRO 300 UNITS/3 ML VIAL SQ SCH ×3 (05:26→17:33)
--- NOTE | 2018-10-04 06:25 | AcuteCare Surgery Consult Note ---
Date of Encounter: 10/04/18 Time of Encounter: 05:45 Assessment and Plan (1) Bowel obstruction Current Visit: Yes Status: Acute associated with large ventral hernia with loss of domain. The SBO is not due to incarceration but rather, more likely, adhesions to previously placed and failed mesh. Recommend immediate treatment for resuscitation with IVF/NPO/NGT. Replace electrolyte losses. Treat pain and insomnia. Initial treatment of SBO should be a trial of nonoperative therapy if possible. Surgery for release of this obstruction with this type of ventral hernia and loss of domain will be difficult and risk for complication and poor outcome is very high. Surgery team will follow closely. Qualifiers: Intestinal obstruction type: obstruction due to adhesions Intestinal obstruction extent: complete Qualified Code(s): K56.52 - Intestinal adhesions [bands] with complete obstruction (2) BRANDIN (acute kidney injury) Current Visit: Yes Status: Acute Primary service to hydrate and treat (3) Lactic acid acidosis Current Visit: Yes Status: Acute Due to SBO. Hydrate. 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 This 53 y/o patient presents complaining of severe midabdominal pain and intractible nausea and vomiting. He reports the pain began on Wednesday (2-3 days ago). He reports the pain was followed by nausea and vomiting. Symptoms progressively worsened to the point of intolerance yesterday when he went to the [facility] ED. Pt has had no relief of pain since admission and has not slept. He reports no BM for days and flatus has ceased as well. Pt reports multiple abdominal wall surgeries. Past Med Surg Social Fam HX - Past Medical History Medical history: CHF, COPD, coronary artery disease, CVA, diabetes, hyperlipidemia, hypertension, myocardial infarction, peripheral artery disease, other Additional medical history: CVA-2017 Psychiatric history: anxiety - Past Surgical History Surgical History: appendectomy, cholecystectomy, herniorrhaphy Additional surgical history: Bowel resection/ perforated repair August 1996. August 1997 hernia repair. May 2007 mesh and hernia repair - Social History Smoking Status: Current every day smoker Smokeless Tobacco Status: No Alcohol use: none Drug use: none - Family History Mother Living Status: Hx Family Cardiac Disorders: Yes (heart disease) Father Living Status: Still Living Hx Family Cardiac Disorders: Yes (valve replacement, heart disease) Hx Family Respiratory Disorders: No Hx Family Cancer: No Hx Family GI Disorders: No Hx Family Endocrine Disorder: Yes (DM) Hx Family Neuromuscular Disorders: No Hx Family Neurologic Disorders: No Hx Family HEENT Disorders: No Hx Family Autoimmune Disorders: No Medications and Allergies Aspirin 325 mg PO DAILY 07/22/17 [History] Buspirone HCl [Buspar] 30 mg PO DAILY 07/22/17 [History] Docusate Sodium [Stool Softener] 100 mg PO DAILY PRN 07/22/17 [History] FLUoxetine HCl [Sarafem] 20 mg PO TID 07/22/17 [History] Furosemide [Lasix] 20 mg PO DAILY 07/22/17 [History] Insulin ASPART [NovoLOG] 10 unit SQ TIDWM 07/22/17 [History] Loratadine [Allergy Relief] 10 mg PO DAILY 07/22/17 [History] Losartan [Cozaar] 100 mg PO DAILY 07/22/17 [History] Omeprazole [PriLOSEC] 40 mg PO DAILY 07/22/17 [History] Simvastatin [Zocor] 20 mg PO HS 07/22/17 [History] Zolpidem [Ambien] 10 mg PO HS 07/22/17 [History] lamoTRIgine [Lamotrigine] 100 mg PO DAILY 07/22/17 [History] metFORMIN [Glucophage] 1,000 mg PO BIDWM 07/22/17 [History] Fluticasone/Vilanterol [Breo Ellipta 200-25 Mcg INH] 2 puff IH DAILY PRN 12/22/17 [History] Insulin Glargine,Hum.rec.anlog [Basaglar Kwikpen U-100] 40 unit SQ HS 12/22/17 [History] Pregabalin [Lyrica] 150 mg PO TID 12/22/17 [History] amLODIPine [Norvasc] 10 mg PO DAILY #30 tablet 12/24/17 [Rx] cloNIDine HCl [Clonidine HCl] 0.2 mg PO BID #60 tablet 12/24/17 [Rx] Potassium Chloride [Klor-Con 10] 10 meq PO BID 01/12/18 [History] rOPINIRole [Requip] 1 mg PO QPM 01/12/18 [History] DiphenhydraMINE [Benadryl] 25 mg PO Q8HR PRN 02/09/18 [History] Gabapentin [Neurontin] 600 mg PO TID 02/09/18 [History] Nitroglycerin 0.4 mg SL Q5MIN PRN #15 tab.subl 02/11/18 [Rx] Albuterol Sulfate 2.5 mg IH QID PRN 03/16/18 [History] Isosorbide MONOnitrate (24 HR) [Imdur] 30 mg PO DAILY 03/16/18 [History] Allergy/AdvReac Type Severity Reaction Status Date / Time Bee Pollen Allergy See Verified 03/16/18 08:22 Comments promethazine [From Phenergan] Allergy Agitated Verified 01/12/18 16:39 plastic tape AdvReac Blister Uncoded 07/22/17 13:41 Review of Systems All systems PM: The remainder of the systems were reviewed and are negative - Constitutional as per HPI, anorexia, fatigue, no chills, no fever(s), no night sweats, no weight loss - EENT Nose, mouth and throat: dry mouth, no dysphagia, no nasal congestion, no nasal discharge, no sinus pain, no sinus pressure, no sore throat - Cardiovascular no chest pain, no diaphoresis, no dyspnea, no edema - Respiratory no cough, no dyspnea, no wheezing - Gastrointestinal abdominal pain, belching, bloating, constipation, cramping, nausea, vomiting, no diarrhea, no hematemesis - Genitourinary flank pain, no dysuria, no urinary frequency - Musculoskeletal no back pain, no joint swelling, no limited range of motion, no neck pain - Integumentary dry skin, wounds (excoriations on abdominal wall without infection), no pruritus, no rash, no jaundice - Neurological weakness, no confusion, no dizziness, no focal weakness, no headache(s) - Psychiatric anxiety, depression - Hematologic/Lymphatic no easy bleeding, no easy bruising General Surgery Exam Initial Vital Signs Temp Pulse Resp BP Pulse Ox 97.3 F L 117 20 109/69 94 10/04/18 02:38 10/04/18 02:38 10/04/18 02:38 10/04/18 02:38 10/04/18 02:38 - General physical appearance moderate distress, moderate pain, chronically ill. negative: jaundice - Eyes PERRL, normal ocular movement. negative: icteric - ENT no congestion, dry mucosa. negative: nasal discharge - Neck no masses, trachea midline, no lymphadectomy, no venous distension - Respiratory normal respiratory effort, clear to auscultation. negative: normal expansion - Cardiovascular Cardiovascular exam: Present: RRR. Absent: JVD - Abdomen Abdomen general surgery: Present: bowel sounds present (hypoactive), distended, tender, surgical scars Hernia: Present: incisional (large and complex recurrent ventral incisional hernia with loss of domain) - Genitourinary Present: normal penis with no external lesions - Integumentary Integumentary general surgery: Present: warm and dry - Neurologic Present: CN 2-12 grossly intact, normal coordination - Musculoskeletal Present: normal posture - Psychiatric Psychiatric general surgery: Present: A&Ox3, appropriate Exam Initial Vital Signs Temp Pulse Resp BP Pulse Ox 97.3 F L 117 20 109/69 94 10/04/18 02:38 10/04/18 02:38 10/04/18 02:38 10/04/18 02:38 10/04/18 02:38 Results - Labs 10/04/18 03:28 10/04/18 03:28 Abnormal lab results MCV 78.5 fL (83.0-100.0) L 10/04/18 03:28 MCH 23.7 pg (28.0-33.3) L 10/04/18 03:28 MCHC 30.2 g/dL (31.6-35.5) L 10/04/18 03:28 RDW 18.8 % (11.5-14.5) H 10/04/18 03:28 Plt Count 488 K/mcL (140-400) H 10/04/18 03:28 Band Neutrophils % 56.0 % (0-4) H 10/04/18 03:28 Sodium 131 mEq/L (136-145) L 10/04/18 03:28 Chloride 87 mEq/L (98-107) L 10/04/18 03:28 Carbon Dioxide 21 mEq/L (23-29) L 10/04/18 03:28 BUN 47 mg/dL (6-20) H 10/04/18 03:28 Creatinine 4.67 mg/dL (0.70-1.30) H 10/04/18 03:28 Est GFR ( Amer) 16 (> 60) L 10/04/18 03:28 Est GFR (Non-Af Amer) 13 (> 60) L 10/04/18 03:28 Glucose 262 mg/dL (70-105) H 10/04/18 03:28 Lactic Acid 6.7 mmol/L (0.5-2.2) H* 10/04/18 03:28 Magnesium 1.5 mg/dL (1.6-2.6) L 10/04/18 03:28 Serum Total Protein 9.2 g/dL (6.4-8.9) H 10/04/18 03:28 Globulin 4.6 g/dL (2.4-3.5) H 10/04/18 03:28 Albumin/Globulin Ratio 1.0 (1.1-2.2) L 10/04/18 03:28 Diabetes panel 10/04/18 Range/Units 03:28 Sodium 131 L (136-145) mEq/L Potassium 4.5 (3.5-5.1) mEq/L Chloride 87 L (98-107) mEq/L Carbon Dioxide 21 L (23-29) mEq/L BUN 47 H (6-20) mg/dL Creatinine 4.67 H (0.70-1.30) mg/dL Glucose 262 H (70-105) mg/dL Calcium 10.1 (8.6-10.3) mg/dL AST 23 (13-39) Units/L ALT 25 (7-52) Units/L Alkaline Phosphatase 95 (34-104) Units/L Albumin 4.6 (3.5-5.7) g/dL Calcium panel 10/04/18 Range/Units 03:28 Calcium 10.1 (8.6-10.3) mg/dL Albumin 4.6 (3.5-5.7) g/dL Pituitary panel 10/04/18 Range/Units 03:28 Sodium 131 L (136-145) mEq/L Potassium 4.5 (3.5-5.1) mEq/L Chloride 87 L (98-107) mEq/L Carbon Dioxide 21 L (23-29) mEq/L BUN 47 H (6-20) mg/dL Creatinine 4.67 H (0.70-1.30) mg/dL Glucose 262 H (70-105) mg/dL Calcium 10.1 (8.6-10.3) mg/dL Adrenal panel 10/04/18 Range/Units 03:28 Sodium 131 L (136-145) mEq/L Potassium 4.5 (3.5-5.1) mEq/L Chloride 87 L (98-107) mEq/L Carbon Dioxide 21 L (23-29) mEq/L BUN 47 H (6-20) mg/dL Creatinine 4.67 H (0.70-1.30) mg/dL Glucose 262 H (70-105) mg/dL Calcium 10.1 (8.6-10.3) mg/dL Total Bilirubin 0.7 (0.3-1.0) mg/dL AST 23 (13-39) Units/L ALT 25 (7-52) Units/L Alkaline Phosphatase 95 (34-104) Units/L Albumin 4.6 (3.5-5.7) g/dL All other labs normal. - Imaging CT scan - abdomen: report reviewed (Abd/Pelvis CT from [facility] reports SBO and large VH) CT scan - pelvis: report reviewed Consult Discharge Plan - Plan Referrals: Jhonny Gilliland MD [Primary Care Provider] -
[2018-10-04 08:09] LABS: INR 1.4; Prothrombin Time 15.4 Seconds (9.4-12.1)
[2018-10-04 08:12] LABS: Activated Partial Thrombo Time 34.7 Seconds (26.0-36.0)
--- NOTE | 2018-10-04 08:17 | Acute Care Surgery Event Note ---
Date of Encounter: 10/04/18 Time of Encounter: 07:15 The patient was seen and evaluated. CAT scan images were not sent from the referring hospital. On physical examination the patient has complete loss of domain with no localized areas of tenderness over the hernia. I did review the CAT scan report from the outside facility. The patient appears to have bowel obstruction associated with a very large hernia he has multiple previous hernia repairs and likely has mesh in place. The anterior abdominal wall is non- reconstructable here at [facility]. I do not have the options for closing his abdomen after exploratory laparotomy if this becomes necessary. Care is best delivered at a tertiary care facility capable of complex component separation or flap coverage of the abdominal defect. The patient has acute renal failure with a creatinine of 4.67. Multiple medical comorbidities conditions. Care is not appropriate at this institution. I spoke with the hospitalist. The initial call from the outside hospital came to one of our surgeons who accepted the patient without full knowledge of the patient's comorbid conditions or loss of domain. The hospitalist is asked us to handle the patient's transfer for these reasons. Fco Almendarze MD FACS
[2018-10-04] MEDS ORDERED: *HR* FentaNYL (PF) 100 MCG/2 ML VIAL IVP PRN (08:29)
[2018-10-04] MEDS ORDERED: Ringers Solution, Lactated 1,000 ML IVC SCH (08:30)
[2018-10-04] MEDS ORDERED: Ringers Solution, Lactated 1,000 ML ONE (08:33)
[2018-10-04 08:40] LABS: Calcium 9.2 mg/dL (8.6-10.3); Potassium 4.2 mEq/L (3.5-5.1)
[2018-10-04] MEDS ORDERED: Ringers Solution, Lactated 1,000 ML IVC ONE ×3 (08:51→14:29)
--- NOTE | 2018-10-04 09:42 | Acute Care Surgery Event Note ---
Date of Encounter: 10/04/18 Time of Encounter: 09:30 I personally contacted the [facility] transfer line. I gave the transfer nurse the full checkout on the patient including comorbid conditions, vital signs, abnormal laboratory values, I shared with her the CAT scan was not provided at this institution and not provided on transfer. She did not want any additional studies at this point. I shared with her that I felt that this was nonoperative management of bowel obstruction but them more acute problem was acute kidney injury and electrolyte abnormality with worsening comorbid conditions. The transfer nurse at [facility] understood the clinical situation and we will place him on the list for transfer as soon as possible.
[2018-10-04] MEDS ORDERED: Ipratropium/Albuterol Neb 3 ML IH PRN (11:37)
[2018-10-04 12:00] LABS: ABG Base Excess -6 mEq/L (-2 to 3); ABG HCO3 17 mEq/L (21-27); ABG Oxygen Saturation 97 % (95-98); ABG PCO2 27 mmHg (35-45); ABG PH 7.41 pH Units (7.32-7.45); ABG PO2 83 mmHg (85-104); ABG TCO2 18 mEq/L (20-26)
[2018-10-04] MEDS ORDERED: Piperacillin/Tazobactam 3.375 GM in 0.9 % Sodium Chloride Mini Bag 100 ML IVPB ONE (12:02)
--- NOTE | 2018-10-04 12:22 | Event Note ---
Date of Encounter: 10/04/18 Time of Encounter: 12:16 Have seen patient on many repeat visits this morning and have talked to Dr. Almendarez of surgery and the transfer center at OSH. Dr. Almendarez does not believe this is a surgical emergency currently. Discussed this with OSH. No beds currently but on transfer list. Can only transfer without bed available if this is truly a surgical emergency that cannot be managed at [facility]. Lactate increasing but surgery does not feel this is related to bowel ischemia given normal WBC. Patient with increased labored breathing and uptrending lactate despite aggressive IVF. Minimal urine output. Will obtain STAT repeat labs with [facility] to see if patient is heading toward needing HD. May need ICU transfer before OSH transfer is set up. Omari Diehl MD
[2018-10-04 12:28] LABS: Hemoglobin 11.7 g/dL (12.9-16.9); Mean Corpuscular HGB Conc 30.8 g/dL (31.6-35.5); Mean Corpuscular Volume 77.9 fL (83.0-100.0); Platelet Count 381 K/mcL (140-400); Red Blood Count 4.88 M/mcL (4.19-5.50); Red Cell Distribution Width 18.9 % (11.5-14.5); White Blood Count 9.2 K/mcL (4.3-11.1)
[2018-10-04 12:47] LABS: Calcium 9.1 mg/dL (8.6-10.3); Potassium 4.8 mEq/L (3.5-5.1)
[2018-10-04 13:01] LABS: Lymphocytes # 1.4 K/mcL (0.6-4.6); Monocytes # 1.3 K/mcL (0.0-1.3); Neutrophils # 6.2 K/mcL (1.6-8.9)
[2018-10-04 13:02] LABS: Large Platelets Present (Not Present); Platelet Estimate Normal (Normal)
[2018-10-04 13:03] LABS: Anisocytosis 1+ (Not Present); Polychromasia 1+ (Not Present)
[2018-10-04 16:01] LABS: Sodium, Urine 42.8 mEq/L
[2018-10-04 16:15] LABS: Bacteria,Urine None Seen per hpf (None-Few); Bilirubin,Urine Small (Negative); Blood,Urine Moderate (Negative); Clarity,Urine Cloudy (Clear); Color,Urine Dark Yellow (Yellow); Glucose,Urine (UA) Normal (Normal); Hyaline Casts,Urine Few per lpf (None-Few); Ketones,Urine Negative (Negative); Leukocyte Esterase,Urine Negative (Negative); Nitrite,Urine Negative (Negative); Protein,Urine 30 mg/dL (Neg-Trace); Specific Gravity,Urine 1.019 (1.010-1.025); Squamous Epithelial Cell,Urine Many per lpf (None-Few); Urobilinogen,Urine Normal (Normal)
--- NOTE | 2018-10-04 16:21 | Acute Care Surgery Event Note ---
Date of Encounter: 10/04/18 Time of Encounter: 16:00 The patient is seen and evaluated in the intensive care unit. He had further increase in his lactate. He has been transferred the intensive care unit. I repeated his evaluation. He is complaining of right-sided abdominal pain. The CAT scan taken at [facility] is now available for review. Most of the area of interest is off the screen. He has complete loss of domain with most of the intestine outside the left side of the abdomen. He has a wide fascial defect. The previously documented dilated stomach and proximal small bowel has been treated with nasogastric tube placement. On examination he does not have guarding or rebound in the abdomen. I recommended continued nasogastric tube decompression and aggressive hydration as well as treatment of his acute renal failure I did speak with the [facility] transfer center. Accepting surgeon is Jamie. The transfer will take place when a bed is available at the [facility]. Fco Almendarez MD FACS
--- NOTE | 2018-10-04 17:27 | Nephrology Consult Note ---
Date of Encounter: 10/04/18 Time of Encounter: 17:05 Assessment and Plan (1) BRANDIN (acute kidney injury) Current Visit: Yes Status: Acute He has severe volume depletion with BRANDIN from his intense episodes of vomiting since Wednesday (today is Wednesday). His UA did not have casts, though there was 30 protein and some blood. I recommend a renal work up and renal U/S. He is not fluid overloaded on exam, and did not have pulmonary vascular congestion on the chest x-ray. Though he has not made much urine yet, during my interview and exam, he had nice clear yellow urine starting to form in the tubing of the Pierre catheter. I recommend continuing volume expansion, and I will adjust the IV fluids to half-normal saline with 75 mEq of sodium bicarbonate to better balance his acid base he has an anion gap metabolic acidosis most likely secondary to the lactic acidosis. He is not hypotensive at this time, and he does not have urgent indications for renal replacement therapy. If his volume status worsens, or if he develops medically refractory hyperkalemia, or uremic confusion, then he may need renal replacement therapy sooner. I recommend holding his losartan, metformin, and gabapentin, which I saw on his outside medication list. I recommend following a renal protective/conservative strategy with strict I's and O's, daily weights, renal dosing of medications, and avoidance of nephrotoxic agents. Thank you for consulting the [place] [facility] specialists group on this complex patient who required a high degree of medical decision-making and evaluation and management. (2) Volume depletion Current Visit: Yes Status: Acute See above. Continue volume repletion. (3) Lactic acid acidosis Current Visit: Yes Status: Acute Will defer to the primary team to treat the underlying etiology. On a side note, not even JEWEL WAXER can remove serum lactic acid, but to better help balance his acid / base, I recommend adjusting the IV as described above. (4) Oliguria Current Visit: Yes Status: Acute See above (5) Hyponatremia Current Visit: Yes Status: Acute Likely a hypovolemic hyponatremia. Continue IVF. (6) Hernia Current Visit: No Status: Chronic He complains of abd pain. As per Surgery. History of Present Illness - Reason for Consult Consult date: 10/04/18 Acute Kidney Injury, metabolic acidosis Requesting physician: Lexa Diehl (He called me twice for consult assistance this afternoon) - Chief Complaint BRANDIN - History of Present Illness The patient is a pleasant 53-year-old morbidly obese gentleman with a past medical history of long-standing diabetes on metformin, hypertension on losartan, diabetic neuropathy on gabapentin, large abdominal hernia and et al who presented with several days of severe vomiting. He denied seeing blood in t he emesis. Reported feeling fatigued as well, but he did not affirm confusion, chest pain. He is feeling anxious. He said he does not feel swollen, but does feel hungry and requested to eat. He also voiced feeling thirsty as well. He denied having recent IV contrast enhanced studies, he did not affirm heavy NSAID use but only occasionally make take an NSAID, he said. To his knowledge, he has not seen a song and dance performer in the past. He did not affirm any prior history of renal stones, or gout. He was accompanied by his spouse, and said that she has been trying to help him eat and drink more healthy foods. He does not consume alcohol routinely and denied consuming any moonshine or antifreeze. Family history: He said that his mother required chronic dialysis starting in her 50s. He is not sure why she had renal failure, he said. Past Med Surg Social Fam HX - Past Medical History Medical history: CHF, COPD, coronary artery disease, CVA, diabetes, hyperlipidemia, hypertension, myocardial infarction, peripheral artery disease, other Additional medical history: CVA-2017 Psychiatric history: anxiety - Past Surgical History Surgical History: appendectomy, cholecystectomy, herniorrhaphy Additional surgical history: Bowel resection/ perforated repair August 1996. August 1997 hernia repair. May 2007 mesh and hernia repair - Social History Smoking Status: Current every day smoker Smokeless Tobacco Status: No Alcohol use: none Drug use: none - Family History Mother Living Status: Hx Family Cardiac Disorders: Yes (heart disease) Father Living Status: Still Living Hx Family Cardiac Disorders: Yes (valve replacement, heart disease) Hx Family Respiratory Disorders: No Hx Family Cancer: No Hx Family GI Disorders: No Hx Family Endocrine Disorder: Yes (DM) Hx Family Neuromuscular Disorders: No Hx Family Neurologic Disorders: No Hx Family HEENT Disorders: No Hx Family Autoimmune Disorders: No Medications and Allergies Aspirin 325 mg PO DAILY 07/22/17 [History] Buspirone HCl [Buspar] 30 mg PO DAILY 07/22/17 [History] Docusate Sodium [Stool Softener] 100 mg PO DAILY PRN 07/22/17 [History] FLUoxetine HCl [Sarafem] 20 mg PO TID 07/22/17 [History] Furosemide [Lasix] 20 mg PO DAILY 07/22/17 [History] Insulin ASPART [NovoLOG] 10 unit SQ TIDWM 07/22/17 [History] Loratadine [Allergy Relief] 10 mg PO DAILY 07/22/17 [History] Losartan [Cozaar] 100 mg PO DAILY 07/22/17 [History] Omeprazole [PriLOSEC] 40 mg PO DAILY 07/22/17 [History] Simvastatin [Zocor] 20 mg PO HS 07/22/17 [History] Zolpidem [Ambien] 10 mg PO HS 07/22/17 [History] lamoTRIgine [Lamotrigine] 100 mg PO DAILY 07/22/17 [History] metFORMIN [Glucophage] 1,000 mg PO BIDWM 07/22/17 [History] Fluticasone/Vilanterol [Breo Ellipta 200-25 Mcg INH] 2 puff IH DAILY PRN 12/22/17 [History] Insulin Glargine,Hum.rec.anlog [Basaglar Kwikpen U-100] 40 unit SQ HS 12/22/17 [History] Pregabalin [Lyrica] 150 mg PO TID 12/22/17 [History] amLODIPine [Norvasc] 10 mg PO DAILY #30 tablet 12/24/17 [Rx] cloNIDine HCl [Clonidine HCl] 0.2 mg PO BID #60 tablet 12/24/17 [Rx] Potassium Chloride [Klor-Con 10] 10 meq PO BID 01/12/18 [History] rOPINIRole [Requip] 1 mg PO QPM 01/12/18 [History] DiphenhydraMINE [Benadryl] 25 mg PO Q8HR PRN 02/09/18 [History] Gabapentin [Neurontin] 600 mg PO TID 02/09/18 [History] Nitroglycerin 0.4 mg SL Q5MIN PRN #15 tab.subl 02/11/18 [Rx] Albuterol Sulfate 2.5 mg IH QID PRN 03/16/18 [History] Isosorbide MONOnitrate (24 HR) [Imdur] 30 mg PO DAILY 03/16/18 [History] Allergy/AdvReac Type Severity Reaction Status Date / Time Bee Pollen Allergy See Verified 03/16/18 08:22 Comments promethazine [From Phenergan] Allergy Agitated Verified 01/12/18 16:39 plastic tape AdvReac Blister Uncoded 07/22/17 13:41 Review of Systems All Systems: reviewed and no additional remarkable complaints except as stated Exam - Vital Signs Vital signs: Initial Vital Signs Temp Pulse Resp BP Pulse Ox 97.3 F L 117 20 109/69 94 10/04/18 02:38 10/04/18 02:38 10/04/18 02:38 10/04/18 02:38 10/04/18 02:38 Vital Signs - Last 8 Hours Temp Pulse Resp BP Pulse Ox 10/04/18 17:00 100 F H 119 25 112/74 100 10/04/18 16:00 118 23 120/71 100 10/04/18 15:30 118 19 120/74 100 10/04/18 14:30 122 26 118/94 100 10/04/18 13:30 101.4 F H 119 22 129/78 95 10/04/18 11:02 99.1 F 114 24 131/83 97 Intake and Output 10/04/18 10/04/18 10/04/18 07:59 15:59 23:59 Intake Total 1500 / 2500 1000 / 2500 Output Total 925 / 1325 250 / 1325 150 / 1325 Balance 575 / 1175 750 / 1175 -150 / 1175 Intake: IV Fluids 1500 / 2500 1000 / 2500 0.9 % Sodium Chloride 1,000 ML 1000 / 1000 @ 999 mls/hr IVC .Q1H1M ONE Rx# :[id number] 0.9 % Sodium Chloride 500 ML @ 500 / 500 999 mls/hr IVC .Q31M ONE Rx#: [id number] Lactated Ringers 1,000 ML @ 999 1000 / 1000 mls/hr IVC .Q1H1M ONE Rx#: [id number] Oral 0 / 0 Output: Urine 25 / 175 150 / 175 Catheter 100 / 250 150 / 250 Gastric Drainage 900 / 900 Other: Meal Lunch Percent of Meal Consumed 0% Weight 134.2 kg Blood Glucose* 243 192 Patient Weight 10/04/18 23:59 Weight 134.2 kg - General Appearance General appearance: well-developed, well-nourished, appears started age, obese, moderate distress EENT: ATNC, PERRL, mucous membranes dry Neck: no JVD, supple Additional Comments: left sided IJ CVC noted Respiratory: no kyphosis, clear Cardiology: no murmurs, no edema, regular rate, regular rhythm, normal S1, nor mal S2 Gastrointestinal: tenderness Additional Comments: very large double mounded left sided hernia. About 1.5 feet in diameter Integumentary: warm and dry Neurologic: no focal deficit, no asterixis, alert and oriented x3 Musculoskeletal: no erythema, no cyanosis, no clubbing Psychiatric: cooperative Additional Comments: Anxious appearing Results - Lab Results 10/04/18 12:10 10/04/18 12:10 Most recent lab results 10/04/18 10/04/18 10/04/18 07:43 11:57 12:10 ABG pH 7.41 ABG pCO2 27 L ABG pO2 83 L ABG HCO3 17 L ABG O2 Saturation 97 Calcium 9.2 9.1 Urine Creatinine Urine Sodium 10/04/18 15:30 ABG pH ABG pCO2 ABG pO2 ABG HCO3 ABG O2 Saturation Calcium Urine Creatinine 151 Urine Sodium 42.8 Consult Discharge Plan - Plan Referrals: Jhonny Gilliland MD [Primary Care Provider] -
[2018-10-04] MEDS ORDERED: Sodium Bicarbonate 75 MEQ in 0.45 % Sodium Chloride 1,000 ML IVC SCH ×2 (17:45→20:00)
[2018-10-04] MEDS ORDERED: Piperacillin/Tazobactam 3.375 GM in 0.9 % Sodium Chloride Mini Bag 100 ML IVPB SCH (18:00)
[2018-10-04 18:57] LABS: Hematocrit 34.1 % (37.5-50.1); Hemoglobin 10.4 g/dL (12.9-16.9); Mean Corpuscular HGB Conc 30.5 g/dL (31.6-35.5); Mean Corpuscular Hemoglobin 23.7 pg (28.0-33.3); Mean Corpuscular Volume 77.9 fL (83.0-100.0); Mean Platelet Volume 11.1 fL (9.4-12.4); Platelet Count 323 K/mcL (140-400); Red Blood Count 4.38 M/mcL (4.19-5.50); Red Cell Distribution Width 18.7 % (11.5-14.5); White Blood Count 7.4 K/mcL (4.3-11.1)
[2018-10-04 19:05] LABS: VBG HCO3 14 mEq/L (21-27); VBG PCO2 30 mmHg (41-51); VBG PH 7.27 pH Units (7.32-7.42); VBG PO2 120 mmHg (25-50)
[2018-10-04 19:10] LABS: INR 1.6
[2018-10-04 19:16] LABS: Complement C3 119 mg/dL (87-200)
[2018-10-04 19:18] LABS: Albumin 3.3 g/dL (3.5-5.7); Bilirubin,Total 0.6 mg/dL (0.3-1.0); Calcium 8.5 mg/dL (8.6-10.3); Globulin 3.4 g/dL (2.4-3.5); Potassium 4.1 mEq/L (3.5-5.1); Total Protein 6.7 g/dL (6.4-8.9)
--- NOTE | 2018-10-04 20:09 | Internal Med Progress Note ---
Hospitalist Progress Note - Encounter Date of Encounter: 10/04/18 Time of Encounter: 20:07 - Subjective Interval History: Patient seen over multiple visits today. Transferred to the ICU for more aggressive care. Still protecting his airway and on minimal oxygen currently. Still minimal urine output. - Exam Vitals: Temp Pulse Resp BP Pulse Ox 98.6 F 113 30 105/94 100 10/04/18 19:45 10/04/18 19:45 10/04/18 19:45 10/04/18 19:45 10/04/18 19:45 Exam: General: Ill-appearing and in acute pain HEENT: No erythema of posterior pharynx. No exudates. Lymphatics: No mandibular or cervical lymphadenopathy Cardiovascular: RRR. No murmurs. No chest wall tenderness. Lungs: Clear to auscelltation bilaterally. Regular chest rise. Abdomen: Very large ventral hernia protruding through abdomen with pain outlining site of hernia but minimal tenderness over hernia site itself. No peritoneal signs. Extremities: No edema. 2+ pulses radial and pedal pulses Skin: No rahses, abrasions, or contusions. Nl cap refill. Psych: Nl attention. A&Ox3 Neuro: aircraft mechanic II-XII intact. 5/5 strength. Sensation to light touch and pinprick intact. - Assessment and Plan (1) Lactic acidosis Current Visit: Yes Status: Acute Assessment and Plan: Patient with history of ventral hernia status post failed mesh repair and multiple additional abdominal surgeries presented to [facility] ED with abdominal pain in the setting of CT abdomen and pelvis with evidence of small bowel obstruction without evidence of incarcerated bowel (although study could not evaluate most of bowel within large ventral hernia because it did not fit within the dimensions of the CT scanner) and lactate that is now trended up to around 10. -Lactate increasing but surgery does not feel this is related to bowel ischemia given normal WBC and no incarceration or ischemic findings on CT Surgically recommending bowel decompression with NG tube -SBO does not explain lactic acidosis so concern for alternative intra-abdominal pathologic process is high Will cover with IV Zosyn given uncertainty -Dr. Almendarez of general surgery does not feel that patient would survive OR visit at this hospital Recommends transfer to [facility] but they are without beds currently Discussed possibility of transferring patient to [place] [facility]. Dr. Almendarez does not think that a surgeon at [facility] would accept this patient PLAN: - Aggressive IVF - Zosyn - NGT to suction - Trend lactate. If continues to climb, will repeat discussions with Dr. Almendarez and [facility] to try to expedite transfer (2) Bowel obstruction Current Visit: Yes Status: Acute Assessment and Plan: History of ventral hernia status post failed mesh repair and multiple additional abdominal surgeries. Be a very complex surgical candidate. - NG tube to suction - Further care per above (3) Ventral hernia Current Visit: Yes Status: Chronic Assessment and Plan: See above (4) Acute renal failure Current Visit: Yes Status: Acute Assessment and Plan: Etiology likely secondary to ischemic ATN in the setting of severe abdominal process and lactic acidosis. -Not making much urine but potassium and pH close to normal -Nephrology consultated. No emergent need for HD but will probably need HD by the morning PLAN: - Trend VBG and renal function - Aggressive IVF with the addition of bicarbonate - Likely need for HD line in the morning (5) Oliguria Current Visit: Yes Status: Acute Assessment and Plan: See above (6) Diabetes mellitus Current Visit: Yes Status: Chronic Assessment and Plan: Currently reasonable blood sugar sugar control - LDSS (7) Hypertension Current Visit: Yes Status: Chronic Assessment and Plan: Hold in the setting of acute abdominal process - Time Spent with Patient Total time spent is greater than 50% in coordination of care (as documented) at patient's floor/unit and/or counseling patient: Internal Medicine: Result - Labs CBC & Chem 7: 10/04/18 18:07 10/04/18 18:07 Labs: Short CBC 10/04/18 10/04/18 10/04/18 Range/Units 03:28 12:10 18:07 WBC 9.5 9.2 7.4 (4.3-11.1) K/mcL Hgb 12.9 11.7 L 10.4 L (12.9-16.9) g/dL Hct 42.7 38.0 34.1 L (37.5-50.1) % Plt Count 488 H 381 323 (140-400) K/mcL Neutrophils # 6.7 6.2 (1.6-8.9) K/mcL BMP 10/04/18 10/04/18 10/04/18 03:28 07:43 12:10 Sodium 131 L 132 L 131 L Potassium 4.5 4.2 4.8 Chloride 87 L 90 L 90 L Carbon Dioxide 21 L 17 L 19 L BUN 47 H 52 H 57 H Creatinine 4.67 H 5.04 H 4.70 H Glucose 262 H 239 H 215 H Calcium 10.1 9.2 9.1 10/04/18 18:07 Sodium 133 L Potassium 4.1 Chloride 91 L Carbon Dioxide 16 L BUN 62 H Creatinine 5.30 H Glucose 153 H Calcium 8.5 L Liver Function 10/04/18 10/04/18 Range/Units 03:28 18:07 Total Bilirubin 0.7 0.6 (0.3-1.0) mg/dL AST 23 159 H (13-39) Units/L ALT 25 140 H (7-52) Units/L Alkaline Phosphatase 95 67 (34-104) Units/L Albumin 4.6 3.3 L (3.5-5.7) g/dL Urine 10/04/18 Range/Units 15:30 Urine Color Dark Yellow (Yellow) Urine Clarity Cloudy A (Clear) Urine pH 5.0 (5.0-8.0) pH Units Ur Specific [place] 1.019 (1.010-1.025) Urine Protein 30 H (Neg-Trace) mg/dL Urine Glucose (UA) Normal (Normal) mg/dL - ABG Interpretation ABG results: ABG ABG pH 7.41 pH Units (7.32-7.45) 10/04/18 11:57 ABG pCO2 27 mmHg (35-45) L 10/04/18 11:57 ABG pO2 83 mmHg (85-104) L 10/04/18 11:57 ABG O2 Saturation 97 % (95-98) 10/04/18 11:57 PT/INR, D-dimer PT 18.0 Seconds (9.4-12.1) H 10/04/18 18:07 - Impressions Impressions Chest X-Ray 10/04/18 14:08 IMPRESSION: Left IJ central line tip in the brachiocephalic, just proximal to the SVC. Enteric tube tip projects off the bottom of the image below the diaphragm. D/ / Vel Glover MD / Vel Glover MD Interpreting Provider: Vel Glover MD Consult Discharge Plan - Plan Referrals: Jhonny Gilliland MD [Primary Care Provider] - (2) Bowel obstruction Qualifiers: Intestinal obstruction type: obstruction due to adhesions Intestinal obstruction extent: complete Qualified Code(s): K56.52 - Intestinal adhesions [bands] with complete obstruction (3) Ventral hernia Qualifiers: Obstruction and gangrene presence: with obstruction but without gangrene Qualified Code(s): K43.6 - Other and unspecified ventral hernia with obstruction, without gangrene (6) Diabetes mellitus Qualifiers: Diabetes mellitus type: type 2 Diabetes mellitus predatory animal exterminator insulin use: with predatory animal exterminator use Diabetes mellitus complication status: with hyperglycemia Qualified Code(s): E11.65 - Type 2 diabetes mellitus with hyperglycemia; Z79.4 - predatory animal exterminator (current) use of insulin (7) Hypertension Qualifiers: Hypertension type: essential hypertension Qualified Code(s): I10 - Essential (primary) hypertension
[2018-10-04 20:18] VITALS: BP 84/52
--- NOTE | 2018-10-04 20:40 | Procedure Note ---
Date of procedure: 10/04/18 Pre-op diagnosis: Renal failure Post-op diagnosis: same Procedure: Central Venous Catheter Procedure Note PROCEDURE: Central Venous Catheter insertion - Left Internal Jugular PATIENT: CPT CODE: DATE: CONSENT: Obtained J2EE DEVELOPER: Omari Diehl MD PROCEDURE PERFORMED: INDICATION: Need for access A time-out was performed prior to the procedure.The patient was placed in Trendelenburg. The left internal jugular vein was visualized with ultrasound. C hlorhexadine was used to prep the skin. The patient was then draped in steril fashion. Chlorhexadine was again used to prep the skin. The ultrasound was then draped. 10ml of 1% Lidocaine was used for local anesthesia. Dynamic ultrasound guidance was used to cannulate the R IJ. A wire was then passed through and a 7 georgian trippled lumen catheter was placed using Seldinger technique. All lines flushed and brittany nonpulsitile venous blood. The line was secured with two sutures. A biopatch and dressing was placed over the site. The procedure was well tolerated. A post-line CXR has been ordered to check placement. ESTIMATED BLOOD LOSS: <5ml COMPLICATIONS: None immediate. CXR ordered. Omari Diehl MD [facility] Medicine Surgeon: Lexa Diehl Was there an assistant front office manager present: No Estimated blood loss (cc): 5 Specimen: None Pathology: none sent Condition: critical Disposition: ICU
--- NOTE | 2018-10-04 23:39 | Discharge Summary ---
Orders not resulted at time of discharge: Pending orders 10/04/18 12:25 EKG [ECG 12 lead ECG] [ECG] Stat 10/04/18 17:40 Retroperitoneal Ultrasound - Complete [US retroperitoneal comp] [US] Routine 10/04/18 18:07 LYNDA IgG NIMA rflx IFA Routine Immunoelectrophoresis Routine [place] Lambda Qnt FLC w Ratio Routine MPO/PR3 (ANCA) Antibodies Routine Date of Encounter: 10/04/18 Time of Encounter: 23:33 - Discharge Diagnosis (1) Lactic acidosis Priority: Primary Status: Acute (2) Bowel obstruction Priority: Secondary Status: Acute Qualifiers: Intestinal obstruction type: obstruction due to adhesions Intestinal obstruction extent: complete Qualified Code(s): K56.52 - Intestinal adhesions [bands] with complete obstruction (3) Ventral hernia Priority: Secondary Status: Chronic Qualifiers: Obstruction and gangrene presence: with obstruction but without gangrene Qualified Code(s): K43.6 - Other and unspecified ventral hernia with obstr uction, without gangrene (4) Acute renal failure Priority: Secondary Status: Acute Qualifiers: Acute renal failure type: with acute tubular necrosis Qualified Code(s): N17.0 - Acute kidney failure with tubular necrosis (5) Oliguria Priority: Secondary Status: Acute (6) Diabetes mellitus Priority: Secondary Status: Chronic Qualifiers: Diabetes mellitus type: type 2 Diabetes mellitus usp insulin use: with usp use Diabetes mellitus complication status: with hyperglycemia Qualified Code(s): E11.65 - Type 2 diabetes mellitus with hyperglycemia; 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 Jimenez is a 53 year old male with history of morbid obesity and complex s urgical history with a ventral hernia s/p failed mesh repair who presented as a transfer from [facility] for concerns for SBO and lactic acidosis. Patient had an extremely large ventral hernia on exam that didn't appear incarcerated on CT imaging but suspicion for bowel ischemia/incarceration or other acute abdominal process high given severe lactic acidosis on admission that continued to climb despite aggressive resuscitation. Was seen by general surgery who helped arrange transfer to OSH for definitive management. - Time Spent with Patient Total time spent providing and/or coordinating discharge services: - Discharge Medications Prescriptions: No Action Insulin ASPART [NovoLOG] 10 unit SQ TIDWM lamoTRIgine [Lamotrigine] 100 mg PO DAILY Zolpidem [Ambien] 10 mg PO HS Simvastatin [Zocor] 20 mg PO HS Docusate Sodium [Stool Softener] 100 mg PO DAILY PRN PRN Reason: Constipation FLUoxetine HCl [Sarafem] 20 mg PO TID Buspirone HCl [Buspar] 30 mg PO DAILY Losartan [Cozaar] 100 mg PO DAILY metFORMIN [Glucophage] 1,000 mg PO BIDWM Loratadine [Allergy Relief] 10 mg PO DAILY Omeprazole [PriLOSEC] 40 mg PO DAILY Furosemide [Lasix] 20 mg PO DAILY Aspirin 325 mg PO DAILY Pregabalin [Lyrica] 150 mg PO TID Insulin Glargine,Hum.rec.anlog [Basaglar Kwikpen U-100] 40 unit SQ HS Fluticasone/Vilanterol [Breo Ellipta 200-25 Mcg INH] 2 puff IH DAILY PRN PRN Reason: Shortness Of Breath amLODIPine [Norvasc] 10 mg PO DAILY #30 tablet cloNIDine HCl [Clonidine HCl] 0.2 mg PO BID #60 tablet Potassium Chloride [Klor-Con 10] 10 meq PO BID rOPINIRole [Requip] 1 mg PO QPM DiphenhydraMINE [Benadryl] 25 mg PO Q8HR PRN PRN Reason: ANXIETY/SLEEP Gabapentin [Neurontin] 600 mg PO TID Nitroglycerin 0.4 mg SL Q5MIN PRN #15 tab.subl PRN Reason: Chest Pain Isosorbide MONOnitrate (24 HR) [Imdur] 30 mg PO DAILY Albuterol Sulfate 2.5 mg IH QID PRN PRN Reason: Shortness Of Breath Home Medications: Aspirin 325 mg PO DAILY 07/22/17 [History] Buspirone HCl [Buspar] 30 mg PO DAILY 07/22/17 [History] Docusate Sodium [Stool Softener] 100 mg PO DAILY PRN 07/22/17 [History] FLUoxetine HCl [Sarafem] 20 mg PO TID 07/22/17 [History] Furosemide [Lasix] 20 mg PO DAILY 07/22/17 [History] Insulin ASPART [NovoLOG] 10 unit SQ TIDWM 07/22/17 [History] Loratadine [Allergy Relief] 10 mg PO DAILY 07/22/17 [History] Losartan [Cozaar] 100 mg PO DAILY 07/22/17 [History] Omeprazole [PriLOSEC] 40 mg PO DAILY 07/22/17 [History] Simvastatin [Zocor] 20 mg PO HS 07/22/17 [History] Zolpidem [Ambien] 10 mg PO HS 07/22/17 [History] lamoTRIgine [Lamotrigine] 100 mg PO DAILY 07/22/17 [History] metFORMIN [Glucophage] 1,000 mg PO BIDWM 07/22/17 [History] Fluticasone/Vilanterol [Breo Ellipta 200-25 Mcg INH] 2 puff IH DAILY PRN 12/22/17 [History] Insulin Glargine,Hum.rec.anlog [Basaglar Kwikpen U-100] 40 unit SQ HS 12/22/17 [History] Pregabalin [Lyrica] 150 mg PO TID 12/22/17 [History] amLODIPine [Norvasc] 10 mg PO DAILY #30 tablet 12/24/17 [Rx] cloNIDine HCl [Clonidine HCl] 0.2 mg PO BID #60 tablet 12/24/17 [Rx] Potassium Chloride [Klor-Con 10] 10 meq PO BID 01/12/18 [History] rOPINIRole [Requip] 1 mg PO QPM 01/12/18 [History] DiphenhydraMINE [Benadryl] 25 mg PO Q8HR PRN 02/09/18 [History] Gabapentin [Neurontin] 600 mg PO TID 02/09/18 [History] Nitroglycerin 0.4 mg SL Q5MIN PRN #15 tab.subl 02/11/18 [Rx] Albuterol Sulfate 2.5 mg IH QID PRN 03/16/18 [History] Isosorbide MONOnitrate (24 HR) [Imdur] 30 mg PO DAILY 03/16/18 [History] Allergies/Adverse Reactions: Allergy/AdvReac Type Severity Reaction Status Date / Time Bee Pollen Allergy See Verified 03/16/18 08:22 Comments promethazine [From Phenergan] Allergy Agitated Verified 01/12/18 16:39 plastic tape AdvReac Blister Uncoded 07/22/17 13:41 Date of admission: 10/04/18 02:11 Primary care physician: Jhonny Gilliland MD Consults: 10/04/18 02:59 Consult to Surgery [CONS] Routine Consulting Provider: Acute Care Surgery Reason for Consult: Incarcerated Hernia Call Completed: Yes - Constitutional Vitals: Temp Pulse Resp BP Pulse Ox 98.6 F 110 35 84/52 97 10/04/18 20:10 10/04/18 20:00 10/04/18 20:00 10/04/18 20:00 10/04/18 20:00 Exam: General: Ill-appearing and in acute pain HEENT: No erythema of posterior pharynx. No exudates. Lymphatics: No mandibular or cervical lymphadenopathy Cardiovascular: RRR. No murmurs. No chest wall tenderness. Lungs: Clear to auscelltation bilaterally. Regular chest rise. Abdomen: Very large ventral hernia protruding through abdomen with pain outlining site of hernia but minimal tenderness over hernia site itself. No peritoneal signs. Extremities: No edema. 2+ pulses radial and pedal pulses Skin: No rahses, abrasions, or contusions. Nl cap refill. Psych: Nl attention. 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 5/5 strength. Sensation to light touch and pinprick intact. - Patient Status Disposition: Transfer Short-Term Hosp Condition: Good - Discharge Instructions Follow Up With: Jhonny Gilliland MD [Primary Care Provider] - - Diet and Activity Activity: increase activity as tolerated Diet: advance to your usual diet
[2018-10-05] MEDS ORDERED: Insulin LISPRO 300 UNITS/3 ML VIAL SQ SCH
--- NOTE | 2018-10-05 12:56 | Electrocardiograph Report ---
[address] [address] Test Date: 2018-10-04 Pat Name: Wiliam Jimenez Department: 112 Room: [facility] Gender: M Manager Hydraulic: : 1965 Requested By: Lexa Diehl Order Number: [id number] Reading MD: Mahogany Mahan Measurements Intervals [place] Rate: 118 P: 8 LA: 162 QRS: -38 QRSD: 93 T: 59 QT: 305 QTc: 375 Interpretive Statements SINUS TACHYCARDIA MARKED LEFT AXIS DEVIATION POOR R WAVE PROGRESSION Electronically Signed On 10-05-2018 12:54:41 EDT by Mahogany Mahan
[2018-10-07 05:04] LABS: Kappa Qnt Free Light Chains 7.25 mg/dL (0.33-1.94)
[2018-10-07 10:41] LABS: ANA IgG by ELISA NONE DETECTED (None Detected); Myeloperoxidase Ab 0 AU/mL (0-19); Serine Protease-3 Antibody 0 AU/mL (0-19)
[2018-10-08 03:49] LABS: Alpha 2 Globulin (PEP) 0.81 g/dL (0.48-1.05); Beta Globulin (PEP) 0.99 g/dL (0.48-1.10)
[2018-10-08 14:04] LABS: IFE Reflexed IFE Done; Immunoglobulin A 336 mg/dL (68-408); Immunoglobulin G 1120 mg/dL (768-1632); Immunoglobulin M 39 mg/dL (35-263)
== END 2018-10-04 21:15 | disposition short-term general hospital (02) ==
LOC: 2ANU → SUATTDRO 02:11 → ICNU 13:44
PROVIDERS: ADMIT Internal Medicine; ATTEND Internal Medicine